=== PATIENT | female | born 1990 | race Caucasian/White ===

== ENCOUNTER 2020-02-22 19:28 | Emergency (ER) | payer BC, SELFPAY ==
[2020-02-22 19:43] VITALS: BP 119/81; PULSE 71; RESP 16; TEMP 36.9; O2SAT 97; BMI 41.5
--- NOTE | 2020-02-22 19:49 | HMH.EDUTC ---
[facility] [place] Clinical Impression: Viral syndrome Pharyngitis Qualifiers: Pharyngitis/tonsillitis etiology: unspecified etiology Qualified Code(s): J02.9 - Acute pharyngitis, unspecified Disposition: Home, Self-Care Condition on Discharge: Good Instructions: DI for Viral Syndrome, Preventing the Spread of Coronavirus Discharge Instructions Additional Instructions: Drink plenty of fluids. Take tylenol or ibuprofen for pain or fever. Take the medications as directed. Follow up with your regular doctor. GO TO THE ER FOR ANY WORSENING SYMPTOMS FOLLOW THE DIRECTIONS ON THE COVID-19 HAND OUT THAT WE GAVE YOU REGARDING SELF-ISOLATION UNTIL YOU KNOW YOUR COVID-19 RESULTS Prescriptions: Ondansetron [Zofran 4mg ODT] 4 mg PO Q8HP PRN #10 tab.rapdis PRN Reason: Nausea Transmission Status: Received by [id number] Azithromycin [Z-Kehinde 250mg Tab*] 250 mg PO UD DOSE PK #6 tab Transmission Status: [facility] Referrals: Warren Cedeño MD [Primary Care Provider] - Forms: Work/School Release Time of Disposition: 20:17 Medical Decision Making - Medical Records Medical records reviewed: No: I reviewed the patient's medical records. - Feliciano Inquiry Pt receiving controlled substance: No Vital Signs: 02/22/20 19:43 02/22/20 20:18 Temperature 98.5 F 98.5 F Temperature Source Oral Pulse Rate 71 Pulse Rate [Right Brachial] 71 Respiratory Rate 16 16 Blood Pressure 119/81 Blood Pressure [Right Arm] 119/81 Blood Pressure Mean [Right Arm] 93 Blood Pressure Source [Right Arm] Automatic Cuff Blood Pressure Position [Right Arm] Sitting 02 Sat by Pulse Oximetry 97 Oxygen Delivery Method Room Air - Lab Data Lab results reviewed: Yes: I reviewed the patient's lab results. Lab Results 02/22/20 19:52: Influenza Type A Ag Negative, Influenza Type B Ag Negative 02/22/20 19:52: Strep Scn Rapid Clinic Negative Orders (Tests/Meds): ED MEDICATIONS Discontinued Medications Generic Name Dose Route Start Last Admin Trade Name Freq PRN Reason Stop Dose Admin Azithromycin 500 mg 02/22/20 20:07 02/22/20 20:09 Zithromax 250mg Tablet PO 02/22/20 20:08 500 mg ONCE ONE Administration Protocol ORDERS Category Date Time Status Covid-19 Nasal PCR Sendout Yassine Stat Lab 02/22/20 19:59 Received Strep Screen Confirmation Stat Micro 02/22/20 19:52 [place]ceived [facility] [place] - General Stated complaint: fever,sore throat,nausa Time Seen by Provider: 02/22/20 19:50 Mode of Arrival: Ambulatory Source of Information: Patient Limitations: No Limitations Description of Symptoms (Recalled from Triage Doc. by RN): PATIENT C/O NAUSEA THAT STARTED LAST NIGHT AND SORE THROAT AND BODY ACHES THAT STARTED THIS MORNING HEENT Symptoms (Recalled from RN notes): Yes Resp Symptoms (Recalled from RN notes): No Skin Symptoms (Recalled from RN notes): No MS Symptoms (Recalled from RN notes): Yes Functional Status (Recalled from RN notes): WNL - History of Present Illness Provider Complaint: She c/o sore throat and feeling bad since yesterday. She denies any documented fever, but she has been chilling. She denies any known exposure to COVID-19. - Related Data Home Medications Medication Instructions Recorded Confirmed Fluoxetine HCl 60 mg PO DAILY 02/22/20 02/22/20 Previous Rx's Medication Instructions Recorded Azithromycin [Z-Kehinde 250mg Tab*] 250 mg PO UD DOSE PK #6 tab 02/22/20 Ondansetron [Zofran 4mg ODT] 4 mg PO Q8HP PRN #10 tab.rapdis 02/22/20 Allergies Allergy/AdvReac Type Severity Reaction Status Date / Time piperacillin [From ZOSYN] Allergy Mild Unverified 06/17/17 14:02 tazobactam [From ZOSYN] Allergy Mild Unverified 06/17/17 14:02 amoxicillin Allergy Verified 02/22/20 19:47 - Worker's Comp Is this a Worker's Comp case?: No [facility] History - Hepatitis A Screen Drug use history?: No High risk sexual behaviors?: No History o
[2020-02-22 19:56] LABS: UTC Influenza A Antigen Negative (Negative); UTC Influenza B Antigen Negative (Negative); UTC Strep Screen (Rapid) Negative (Negative)
[2020-02-22 20:18] VITALS: BP 119/81; PULSE 71; RESP 16; TEMP 36.9; O2SAT 97
[2020-02-24 16:25] LABS: Covid-19 Nasal PCR Sendout Lex NOT DETECTED
== END 2020-02-22 20:20 | disposition home or self-care (01) ==
PROVIDERS: Emergency Provider Nurse Practitioner Family; PCP Internal Medicine Adolescent Medicine
DX: B34.9 Viral infection, unspecified (principal); J02.9 Acute pharyngitis, unspecified; Z20.828 Contact with and (suspected) exposure to other viral communicable diseases; Z88.1 Allergy status to other antibiotic agents
CPT/HCPCS: 87804; 87880; 99202; U0004

== ENCOUNTER 2020-11-16 18:29 | Emergency (ER) | payer BC, SELFPAY ==
[2020-11-16 18:30] VITALS: BP 143/95; PULSE 83; RESP 20; TEMP 36.8; O2SAT 99; BMI 46.2
[2020-11-16 18:43] LABS: Apearance,Urine Cloudy (Clear); Bilirubin,Urine Negative (Negative); Blood, Urine 2+ (Negative); Color,Urine Orange (Yellow); Glucose,Urine (UA) 100 (Negative); Ketones,Urine Negative (Negative); Protein,Urine 1+ (Negative); Specific Gravity, Urine 1.025 (1.005-1.030); Urobilinogen,Urine 1 EU/dl (0.2)
[2020-11-16 18:44] LABS: UTC Leukocyte Esterase,Urine 1+ (Negative); UTC Nitrate,Urine Positive (Negative)
--- NOTE | 2020-11-16 18:54 | HMH.EDUTC ---
[facility] [place] Disposition Clinical Impression: UTI (urinary tract infection) Qualifiers: Urinary tract infection type: site unspecified Hematuria presence: with hematuria Qualified Code(s): N39.0 - Urinary tract infection, site not specified Disposition: Home, Self-Care Condition on Discharge: Good Instructions: Trimethoprim/Sulfamethoxazole (Alternative Therapy), Urinary Tract Infection, DI for Urinary Tract Infection (UTI), Phenazopyridine Additional Instructions: *Increase fluids. Water not Soda or Tea *Start antibiotic immediately and be sure to take as ordered for the FULL length of time although you should start to see improvement over the next 48 hours *Pyridium as needed Remember this medication will turn your urine Izard. This is normal but it will stain what ever it gets on *You should not use Pyridium for more than 48 hours. If so , follow up with your primary physician to review urine culture and ensure that antibiotic is adequate for infection *Be SURE to follow up anytime for new or worsening symptoms with your family doctor. AND in 48 hours for urine culture results with your family doctor, if you do not have a doctor then you may call back to the [facility] for urine culture results and further treatment. We do recommend that you choose and establish care with a Primary Care Physician. AND follow up with them in 10-14 days to repeat UA to ensure infection is resolved and blood no longer present *Be sure to let your PCP know that we sent urine cultures from the [facility] so they can follow up to ensure that you area the on the correct antibiotic Call your doctor office and make appointment for 48 hours (2 days from today) to follow up and get the results of your urine culture and further treatment Prescriptions: Sulfamethoxazole/Trimethoprim [Bactrim DS tablet] 1 each PO BID 7 Days #14 tab Transmission Status: Received by [id number] Phenazopyridine HCl [Pyridium 200mg Tablet] 200 pow PO TID #6 tab Transmission Status: Received by [id number] Referrals: Warren Cedeño MD [Primary Care Provider] - As needed Time of Disposition: 19:06 Medical Decision Making - Feliciano Inquiry Pt receiving controlled substance: No Feliciano was queried for this patient: No Vital Signs: 11/16/20 18:30 11/16/20 19:08 Temperature 98.3 F 98.3 F Temperature Source Oral Pulse Rate 83 Pulse Rate [Right Brachial] 83 Respiratory Rate 20 20 Blood Pressure 143/95 H Blood Pressure [Right Arm] 143/95 H Blood Pressure Mean [Right Arm] 111 Blood Pressure Source [Right Arm] Automatic Cuff Blood Pressure Position [Right Arm] Sitting 02 Sat by Pulse Oximetry 99 Oxygen Delivery Method Room Air - Lab Data Lab results reviewed: Yes: I reviewed the patient's lab results. Lab Results 11/16/20 18:33: Urine Color Izard, Urine Appearance Cloudy, Urine pH 5.0, Ur Specific [place] 1.025, Urine Protein 1+, Urine Glucose (UA) 100, Urine Ketones Negative, Urine Blood 2+, Urine Nitrate Positive A, Urine Bilirubin Negative, Urine Urobilinogen 1, Ur Leukocyte Esterase 1+ A Orders (Tests/Meds): ORDERS Category Date Time Status Urine Culture Stat Micro 11/16/20 18:36 Received [facility] [place] HPI - General Stated complaint: possible uti Time Seen by Provider: 11/16/20 18:54 Mode of Arrival: Ambulatory Source of Information: Patient Limitations: No Limitations Description of Symptoms (Recalled from Triage Doc. by RN): PATIENT C/O ABDOMINAL AND BACK PAIN/PRESSURE AND URINARY URGENCY AND BURNING X 2 DAYS HEENT Symptoms (Recalled from RN notes): No Resp Symptoms (Recalled from RN notes): No Skin Symptoms (Recalled from RN notes): No MS Symptoms (Recalled from RN notes): No Functional Status (Recalled from RN notes): WNL - History of Present Illness Provider Complaint: Patient state that she has been having achy like feeling in her lower back and pressure like feeling and feeling of urgency and frequency States that she feels like she did be
[2020-11-16 19:08] VITALS: BP 143/95; PULSE 83; RESP 20; TEMP 36.8; O2SAT 99
== END 2020-11-16 19:11 | disposition home or self-care (01) ==
PROVIDERS: Emergency Provider Nurse Practitioner; PCP Internal Medicine Adolescent Medicine
DX: N30.00 Acute cystitis without hematuria (principal); A49.8 Other bacterial infections of unspecified site; Z88.0 Allergy status to penicillin
CPT/HCPCS: 81003; 87086; 87088; 87186; 99202; G0463

== ENCOUNTER → 2021-07-20 08:47 | Outpatient (CLI) | payer BC, SELFPAY | PROVIDERS: Visit Provider Nurse Practitioner | DX: Z20.822 Contact with and (suspected) exposure to COVID-19 (principal) | CPT/HCPCS: C9803; U0003; U0005 ==

== ENCOUNTER 2022-01-26 17:41 | Emergency (ER) | payer BC, SELFPAY ==
[2022-01-26 18:12] VITALS: BP 127/82; PULSE 79; RESP 18; TEMP 37.5; O2SAT 99; BMI 32.8
--- NOTE | 2022-01-26 18:13 | HMH.EDUTC ---
[facility] [place] Disposition Clinical Impression: Abdominal wall abscess Disposition: Home, Self-Care Condition on Discharge: Good Instructions: Boil Additional Instructions: Keep the affected area clean and dry. Follow up with your regular doctor. Take the antibiotics as directed and apply the topical antibiotics as directed. Apply warm wet compresses to the affected area three or four times per day. GO TO THE ER FOR ANY WORSENING SYMPTOMS Prescriptions: Mupirocin [Bactroban 2% Ointment 22gm tube] 1 applicatio TP TID 7 Days #1 gm Transmission Status: Pending to [facility] cephALEXin [cephALEXin 500mg capsule] 500 mg PO Q6H 10 Days #40 cap Transmission Status: Pending to [facility] Referrals: Warren Cedeño MD [Primary Care Provider] - Time of Disposition: 19:36 Medical Decision Making - Medical Records Medical records reviewed: No: I reviewed the patient's medical records. - Feliciano Inquiry Pt receiving controlled substance: No Vital Signs: 01/26/22 18:12 Temperature 99.5 F Temperature Source Oral Pulse Rate [Left] 79 Respiratory Rate 18 Blood Pressure [Right Arm] 127/82 Blood Pressure Mean [Right Arm] 97 02 Sat by Pulse Oximetry 99 Orders (Tests/Meds): ED MEDICATIONS Discontinued Medications Generic Name Dose Route Start Last Admin Trade Name Wally PRN Reason Stop Dose Admin Ceftriaxone Sodium 1 gm 01/26/22 19:26 01/26/22 19:32 Ceftriaxone 1gm Vial IM 01/26/22 19:27 1 gm ONCE ONE Administration Lidocaine HCl 0 ml 01/26/22 19:26 01/26/22 19:32 Lidocaine 1% 5ml Pf Vial IM 01/26/22 19:27 2 ml ONCE ONE Administration ORDERS Category Date Time Status Wound Culture and Gram Stain Stat Micro 01/26/22 19:31 Ordered [facility] [place] HPI - General Stated complaint: abscess under Left side Time Seen by Provider: 01/26/22 18:13 - History of Present Illness Provider Complaint: She has had a red swollen area on the skin of her right side of her abdomen for the past 2 weeks. She states that it has drained a small amount of tannish drainage. She denies any fever or chills. - Related Data Home Medications Medication Instructions Recorded Confirmed Vortioxetine Hydrobromide 20 mg PO DAILY 11/16/20 11/16/20 [Trintellix] levonorgestreL [Mirena] 1 each UR ONCE 11/16/20 11/16/20 Previous Rx's Medication Instructions Recorded Phenazopyridine HCl [Pyridium 200 pow PO TID #6 tab 11/16/20 200mg Tablet] Sulfamethoxazole/Trimethoprim 1 each PO BID 7 Days #14 tab 11/16/20 [Bactrim DS tablet] Mupirocin [Bactroban 2% Ointment 1 applicatio TP TID 7 Days #1 gm 01/26/22 22gm tube] cephALEXin [cephALEXin 500mg 500 mg PO Q6H 10 Days #40 cap 01/26/22 capsule] Allergies Allergy/AdvReac Type Severity Reaction Status Date / Time piperacillin [From ZOSYN] Allergy Mild Verified 01/26/22 18:15 tazobactam [From ZOSYN] Allergy Mild Verified 01/26/22 18:15 amoxicillin Allergy Verified 01/26/22 18:15 Penicillins Allergy Verified 01/26/22 18:15 [facility] History - Hepatitis A Screen Attestation statement:: This patient has been screened for Hepatitis A risk factors. I have reviewed the patient's past medical history: Yes - Social History Alcohol Intake: never Occupational Status: other ROS Obtained: Yes All systems reviewed & no additional complaints - Constitutional Constitutional: Denies chills, Denies fever(s) - Eyes Eyes: Denies eye discharge - ENT Ears, Nose, Mouth, and Throat: Denies dizziness, Denies otalgia, Denies sore throat - Cardiovascular Cardiovascular: Denies chest pain - Respiratory Respiratory: Denies chest congestion, Denies cough - Musculoskeletal Musculoskeletal: Denies joint pain, Denies back pain - Integumentary/Breasts Skin/Breast: Reports redness, Denies rash, Reports wounds Physical Exam - General General appearance: alert, in no apparent distress - Head Head exam: a
[2022-01-26 19:32] VITALS: BP 127/82; PULSE 79; RESP 18; TEMP 37.5
== END 2022-01-26 19:41 | disposition home or self-care (01) ==
PROVIDERS: Emergency Provider Nurse Practitioner Family; PCP Internal Medicine Adolescent Medicine
DX: L02.211 Cutaneous abscess of abdominal wall (principal)
CPT/HCPCS: 10060; 87070; 87205; 96372; 99213; G0463; J0696

== ENCOUNTER 2022-04-26 14:54 | Emergency (ER) | payer BC, SELFPAY ==
--- NOTE | 2022-04-26 15:06 | CT_ITS ---
PROCEDURE INFORMATION: Exam: CTA Chest With Contrast Exam date and time: 04/26/2022 4:07 PM Age: 31 years old Clinical indication: Shortness of breath; Additional info: SOA, covid +, elevated dimer TECHNIQUE: Imaging protocol: Computed tomographic angiography of the chest with contrast. 3D rendering (Not supervised by radiologist): MIP and/or 3D reconstructed images were created by the technologist. Radiation optimization: All CT scans at this facility use at least one of these dose optimization techniques: automated exposure control; mA and/or kV adjustment per patient size (includes targeted exams where dose is matched to clinical indication); or iterative reconstruction. Contrast material: ISOVUE 370; Contrast volume: 70 ml; Contrast route: INTRAVENOUS (IV); COMPARISON: No relevant prior studies available. FINDINGS: Pulmonary arteries: No pulmonary embolus. No dissection or aneurysm in the chest. Aorta: Unremarkable. No aortic aneurysm. No aortic dissection. Lungs: The lungs are clear. Pleural spaces: Unremarkable. No pneumothorax. No pleural effusion. Heart: No significant coronary artery calcifications. Lymph nodes: Unremarkable. No enlarged lymph nodes. Stomach and bowel: Gastric bypass. Bones/joints: Unremarkable. No acute fracture. Soft tissues: Unremarkable. IMPRESSION: 1. No pulmonary embolus. No dissection or aneurysm in the chest. 2. The lungs are clear.
[2022-04-26 15:21] VITALS: BP 148/114; PULSE 80; RESP 17; TEMP 36.9; O2SAT 98; BMI 30.4
[2022-04-26 15:35] LABS: Basophils # 0.1 K/mm3 (0-0.2); Basophils % 1.2 % (0.1-2.0); Eosinophils # 0.2 K/mm3 (0.0-0.4); Eosinophils % 2.4 % (0.1-12.0); Hematocrit 47.6 % (37.0-47.0); Hemoglobin 15.6 g/dL (12.2-16.2); Lymphocytes # 2.8 K/mm3 (0.7-4.5); Lymphocytes % 39.5 % (10-50); Mean Corpuscular HGB Conc 32.7 g/dL (31.8-35.4); Mean Corpuscular Hemoglobin 31.7 pg (27.0-31.2); Mean Platelet Volume 8.6 fl (7.4-10.4); Monocytes # 0.4 K/mm3 (0.1-1.0); Monocytes % 5.7 % (1.7-9.3); Neutrophils # 3.6 K/mm3 (1.8-7.8); Platelet Count 227 K/mm3 (142-424); Red Blood Count 4.91 M/mm3 (4.20-5.40); Red Cell Distribution Width 14.2 % (11.5-17.5)
[2022-04-26 15:45] LABS: Chloride 101 mmol/L (98-107); Potassium 3.9 mmoL/L (3.5-5.1); Sodium 140 mmol/L (136-145)
[2022-04-26 15:48] LABS: Alanine Aminotransferase 57 U/L (12-78); Albumin Level 4.6 g/dl (3.5-5.0); Albumin/Globulin Ratio 1.8 (1.1-1.8); Alkaline Phosphatase 98 U/L (38-126); Anion Gap 13.9 mEq/L (5-15); Aspartate Amino Transferase 95 U/L (14-36); Bilirubin,Total 0.8 mg/dl (0.2-1.3); Blood Urea Nitrogen 18 mg/dl (7-17); Calcium 9.4 mg/dl (8.4-10.2); Carbon Dioxide 29 mmol/L (22.0-30.0); Creatinine Clearance Estimated 187 mL/min (50-200); Estimated Glomerular Filt Rate 116 ml/min (>60); GFR (African American) 140 ML/MIN (>60); Globulin 2.6 g/dL (1.3-3.2); Glucose 94 mg/dl (74-100); Magnesium 1.9 mg/dl (1.6-2.3); Total Protein,Serum 7.2 g/dl (6.3-8.2)
[2022-04-26 15:50] LABS: HCG Qualitative, Serum Negative (Negative)
[2022-04-26 16:00] VITALS: BP 133/105; PULSE 74; RESP 20; O2SAT 99
--- NOTE | 2022-04-26 16:55 | HMH.EDGENADL ---
Discharge Plan Disposition Patient Disposition: Home, Self-Care Prescriptions Prescriptions: New chlordiazepoxide HCl 25 mg capsule See Rx Instructions .ROUTE .COMPLEX Qty: 13 0RF Rx Instructions: Please take 50 mg every 8 hours on day one, 25 mg every 6 hours on day two, 25 mg every 12 hours on day three, 25 mg at night on day four. No Action levonorgestrel 1 EACH intrauterine device 1 each UR ONCE vortioxetine 20 MG tablet 20 mg PO DAILY phenazopyridine 200 MG tablet 200 pow PO TID Qty: 6 0RF sulfamethoxazole-trimethoprim 1 EACH tablet 1 each PO BID 7 Days Qty: 14 0RF cephalexin 500 MG capsule 500 mg PO Q6H 10 Days Qty: 40 0RF mupirocin 22 GM ointment 1 applicatio TP TID 7 Days Qty: 1 0RF Referrals Follow up/Referrals: Shaw Vang MD [Primary Care Provider] - See instructions Activity Restrictions/Add. Instructions Additional Instructions/Restrictions: At this time was felt you are safe to be discharged home. If new or worsening symptoms please do not hesitate to return to the emergency department. Please take your medication as prescribed. Please do not combine your medication with alcohol. Clinical Impressions Clinical Impression: COVID-19, Alcohol withdrawal Discharge ED Provider: Crescencio Yeung General Adult HPI General Chief complaint: Shortness of Breath/Dyspnea Stated complaint: SOA Time Seen by Provider: 04/26/22 15:30 Mode of Arrival: Ambulatory Source of Information: Patient Limitations: No Limitations Description of Symptoms (Recalled from ER Triage Doc. by RN): PT STATES THAT SHE TESTED + FOR COVID ON 04/19. STATES THAT SHE HAD SOA THIS AM. PCP ADVISED HER TO COME TO ED TO R/O PE. PT ALSO ADVISES THAT SHE DRINKS ETOH DAILY AND HAS NOT HAD ANY, SO SHE IS CONCERNED ABOUT THE POSSIBILITY OF WITHDRAWL. History of Present Illness HPI narrative: Patient is a 31-year-old female with past medical history of EtOH abuse who presents emergency department for evaluation of shortness of breath in the setting of positive D-dimer. Patient tested positive for COVID on . She had progressive shortness of breath causing her to present to outside clinic where elevated D-dimer was found and she was sent here for continued evaluation. Patient states that she has shortness of breath, moderate in intensity. No chest pain. No other acute complaints at this time. Related Data Home Medications Medication Instructions Recorded Confirmed levonorgestrel 20 mcg/24 hours (8 1 each UR ONCE control 11/16/20 11/16/20 yrs) 52 mg intrauterine device vortioxetine 20 mg tablet 20 mg PO DAILY Depression 11/16/20 11/16/20 Previous Rx's Medication Instructions Recorded phenazopyridine 200 mg tablet 200 pow PO TID #6 tabs 11/16/20 sulfamethoxazole 800 1 each PO BID 7 days #14 tabs 11/16/20 mg-trimethoprim 160 mg tablet cephalexin 500 mg capsule 500 mg PO Q6H 10 days #40 caps 01/26/22 mupirocin 2 % topical ointment 1 applicatio topical TID 7 days #1 01/26/22 g chlordiazepoxide HCl 25 mg capsule See Rx Instructions .Route 04/26/22 .COMPLEX #13 caps Allergies Allergy/AdvReac Type Severity Reaction Status Date / Time piperacillin [From ZOSYN] Allergy Mild Verified 01/26/22 18:15 tazobactam [From ZOSYN] Allergy Mild Verified 01/26/22 18:15 amoxicillin Allergy Verified 01/26/22 18:15 Penicillins Allergy Verified 01/26/22 18:15 PFSH PFSH Social History Smoking Status: Never smoker alcohol intake: never current occupational status: other Travel in the last 8 weeks: None ROS Obtained: Yes Systems reviewed as appropriate & no additional complaints except as documented Physical Exam General General appearance: alert and in no apparent distress Head Head exam: atraumatic and normocephalic Eye Eye exam: Present PERRL and EOMI ENT ENT exam: Present mucous membranes moist Neck Neck exam: Present normal inspection Chest Chest in
[2022-04-26 17:33] LABS: Troponin I < 0.01 ng/ml (0.00-0.034)
--- NOTE | 2022-04-26 17:55 | ECG_ITS ---
APPROVED REPORT Exam: Resting ECG HR:73 bpm ECG Measurements Heart Rate 73 AXES [place] 133 P 35 QRSd 93 QRS 33 QT 399 T 35 QTc 425 Conclusion SINUS RHYTHM NORMAL ECG UNCONFIRMED REPORT Electronically signed by : Shaw Vang MD 04/28/2022 21:21:04
[2022-04-26 18:20] VITALS: BP 156/100; PULSE 83; RESP 20; TEMP 36.8; O2SAT 99
== END 2022-04-26 18:20 | disposition home or self-care (01) ==
PROVIDERS: Emergency Provider Emergency Medicine; PCP Internal Medicine Adolescent Medicine
DX: U07.1 COVID-19 (principal); F10.939 Alcohol use, unspecified with withdrawal, unspecified; Z88.0 Allergy status to penicillin; Z88.1 Allergy status to other antibiotic agents; Z88.8 Allergy status to other drugs, medicaments and biological substances
CPT/HCPCS: 71275; 80053; 83735; 84484; 84703; 85025; 93005; 96365; 99284; Q9967

== ENCOUNTER 2025-04-02 14:32 | Emergency (ER) | payer BC, SELFPAY ==
[2025-04-02 14:43] VITALS: BP 145/103; PULSE 86; RESP 16; TEMP 36.8; O2SAT 99; BMI 25.8
--- OUTSIDE RECORDS SUMMARY | 2025-04-02 14:47 | XMS_ITS | Clinical Summary ---
Author Organization [facility] Address [address] [place] [address] Care Team Providers Care Wholesale Representative Name Role Phone Shaw Vang MD Primary Care Provider [phone] Allergies Active Allergy Reactions Criticality Noted Date Comments Penicillins Other (See Comments) 03/17/2022 Known reaction, childhood allergy Piperacillin Sod-Tazobactam So Angioedema 03/17/2022 Medications predniSONE (DELTASONE) 10 MG (21) dose packIndications :Acute midline low back pain without sciatica Use as directed on package 21 tablet 09/03/2023 Active Immunizations Immunization Administration Dates Next Due Fluzone (or Fluarix & Flulaval for VFC) >6mos Social History Tobacco Use Types Packs/Day Years Used Date Smoking Tobacco: Never Assessed Abuse Screen Answer Date Recorded Unsafe at Home or Work/School Not on file Feels Threatened by Someone? Not on file Does Anyone Keep You from Co ntacting Others or Doint Things Outside the Home? Not on file 04/11/2023 Physical Sign of Abuse Present Not on file 1 Housing Stability Answer Date Recorded Current Living Arrangements Not on file 03/30 Potentially Unsafe Housing Conditions Not on cecilia e 04/11/2023 Family and Community Support Answer Too e Recorded Help with Day-to-Day Activities Not on file 04/11/2023 Lonely or Isolated Not on file 04/11/2023 Employment Answer Date Recorded Do you want help finding or keeping work or a herminia b? Not on file 04/11/2023 Disabilities Answer Date Recorded Concentrating, Remembering, or Making Decisions Difficulty Not on file 04/11/2023 Doing Errands Independently Difficulty Not on fi le 04/11/2023 Education Answer Date Recorded Help with school or training? Not on file Preferred Language Not on file 04/11/2023 Comments No Sex and Gender Information Value Date Recorded Sex Assigned at Not on file Legal Sex Female 8:14 AM EDT Gender Identity Not on file Sexual Orientation Not on file Last Filed Vital Signs Vital Sign Reading Time Taken Comments Blood Pressure 132/94 03/17/2022 9:30 AM EDT Pulse 84 03/17/2022 9:30 AM EDT Temperature 36.8 C (98.2 F) 03/17/2022 8:15 AM EDT Respiratory Rate 16 03/17/2022 9:30 AM EDT Oxygen Saturation 97% 03/17/2022 9:30 AM EDT Inhaled Oxygen Concentration - - Weight 89.4 kg (197 lb) 03/17/2022 8:15 AM EDT Height 170.2 cm (5' 7 ) 03/17/2022 8:15 AM EDT Body Mass Index 30.85 03/17/2022 8:15 AM EDT Plan of Treatment Health Maintenance Due Date Last Done Comments Annual Gynecologic Pelvic and Breast Exam 1989 TDAP/TD VACCINES (1 - Tdap) 2008 ANNUAL PHYSICAL 09/03/2023 HEPATITIS C SCREENING 09/03/2023 INFLUENZA VACCINE 01/28/2025 05/02/2023, , 03/22/2020, Additional history exists Pneumococcal Vaccine 0-49 Aged Out No longer eligible based on patient's age to complete this topic Insurance [employer] Care Teams Wholesale Representative Relationship Specialty Start Date End Date Shaw Vang MD [address] [facility] [address] [facility] [place] [id number] PCP - General Adolescent Medicine 03/17/22
--- OUTSIDE RECORDS SUMMARY | 2025-04-02 14:47 | XMS_ITS | Encounter Summary ---
Author Organization [employer] ([place], [place], [place], [place]) Address [address] [place] [address] Care Team Providers Care Log Deck Tender Name Role Phone Unavailable Primary Care Provider Unavailabl e Encounter Details Date Type Department Care Team (Late st Contact Info) Description 07/07/2020 Transcribed Document [facility] [place] [facility] [place] [address] ProviderJonatan MD [address] [phone] Social History Tobacco Use Types Packs/Day Years Used Date Smoking Tobacco: Never Assessed Comments Unknown Sex and Gender Information Value Date Recorded Sex Assigned at Female 12/25/2021 6:38 PM CDT Legal Sex Female 6:38 PM CDT Gender Identity Female 12/25/2021 6:38 PM CDT Sexual Orientation Not on file documented as of this encounter Miscellaneous Notes * Cerner Conversion Note - Historical ProviderMD - 07/07/2020 11:46 AM RANCH COOK Pre Procedure Adult Entered On: 07/07/2020 11:51 EST Performed On: 07/07/2020 11:46 EST by DENICE Candelario RN Height and Weight, Clinical Dosing Height Source : Stated Height Entry Format : [place] Height, Feet : 0 ft(Converted to: 0 cm, 0 Inch) Height, Inches : 67 Inch(Converted to: 5 ft 7 Inch, 170.18 cm) Clinical Height : 170.18 cm Weight Source : Standing scale Weight Entry Format : [place] Clinical Dosing Weight : 132.64 kg Weight, Pounds : 291.8 lb Body Surface Area (BSA) : 2.38 m2 Body Mass Index : 45.8 kg/m2 (>HHI) [place] Body Weight : 61 kg DENICE Candelario RN - 07/07/2020 11:46 EST Health Histories Smoking Status : Never (less than 100 in lifetime; none in last 30 days) Smokeless Tobacco Status : Never DENICE Candelario RN - 07/07/2020 11:46 EST Social History (As Of: 07/07/2020 11:51:01 EST) Tobacco: Never (less than 100 in lifetime) Smoking Status. Never Smokeless Tobacco Status. (Last Updated: 07/07/2020 11:46:24 EST by DENICE Candelario RN) Alcohol: Alcohol Use History Yes. Alcohol Use Frequency Monthly. (Last Updated: 07/07/2020 11:46:31 EST by DENICE Candelario RN) Substance Abuse: Drug Use Hx: No. Use in Last 12 Months: No. (Last Updated: 07/07/2020 11:46:35 EST by DENICE Candelario RN) Nutrition/Health: Caffeine intake amount: none. (Last Updated: 07/07/2020 11:46:40 EST by DENICE Candelario RN) Infectious Disease History Has the patient ever been tested for COVID-19? : Yes, Patient stated results Negative Where are the test results? : In EMR Results Date of COVID-19 test known? : Yes Date of COVID-19 Test : 07/04/2020 EST Does patient have symptoms of COVID-19? : No COVID19 Screening : Yes Experiencing Infectious Disease Symptoms : No symptoms Physical contact outside [place] in the last 30 days : No Infectious Disease History : Chicken pox/Shingles, Influenza Tuberculosis Symptoms : None DENICE Candelario RN - 07/07/2020 11:46 EST COVID19 PreProcedure Screening Is this an Emergent or Add on Procedure? : No Date PreProcedure COVID-19 test known? : Yes Date of PreProcedure COVID-19 : 07/04/2020 EST Has patient been isolated since the test : Yes Exposed to COVID19 symptoms since test? : No DENICE Candelario RN - 07/07/2020 11:46 EST Anesthesia/Transfusion History Family History of Anesthesia Reaction : No prior transfusion(s) Transfusion History : Prior anesthesia reaction Type of Anesthesia Reaction : Excessive somnolence Family History of Anesthesia Reaction : None DENICE Candelario RN - 07/07/2020 11:46 EST Functional Assessment Living Situation : Home Patient Lives With : Dependent Child/Children, Spouse Current Home Treatments : None DENICE Candelario RN - 07/07/2020 11:46 EST [place] Suicide Severity Rating Scale (C-SSRS) CSSRS Past Month Wish to be : No CSSRS Past Month Suicidal Thoughts : No CSSRS Lifetime Suicide Behavior : No Suicide Severity Rating Score : 0 Suicide Severity Rating : No Additional Care Required at this time DENICE Candelario RN - 07/07/2020 11:46 EST Psychosocial History Currently in Unsafe Situation : No DENICE Candelario RN - 07/07/2020 11:46 EST Advance Directive Patient has Advance Directive *Q : No, patient refuses Advance Directive information DENICE Candelario RN - 07/07/2020 11:46 EST Teaching/Learning Assessment Barriers To Learning : None evident Individuals Taught : Patient Readiness to Learn : Cooperative Highest Level of Education : University degree(s) Baseline Knowledge of Topic : Good Readiness to Learn : Explanation DENICE Candelario RN - 07/07/2020 11:46 EST General Info Want Family/Rep/Phys Notified of Admit : Yes Name/Contact Info Fam/Rep Notified Adm : na Name/Contact Info Physician Notified Adm : Willard Cedeño Emergency Contact #1 : Willard Dejesus Emergency Contact #1 Emergency Contact #1 Relationship : spouse Emergency Contact #2 : none Emergency Contact #2 Phone Number : none Emergency Contact #2 Relationship : none Information Obtained From : Patient Primary Language : Telugu Communication Barrier : None Dirt Shoveler Needed : No Objects to Sharing Info w Family : No DENICE Candelario RN - 07/07/2020 11:46 EST Sleep Apnea Risk Assmt Hx of Obstructive Sleep Apnea Diagnosis : No Snore Loudly : No Tired, Fatigued, or Sleepy During Day : No Observed Stopping Breathing During Sleep : No Have/Are Being Treated for Hypertension : No BMI Greater Than 35 kg/m2 : Yes Age over 50 Years Old : No Neck Circumference Greater Than 40 cm : Yes Gender Male : No STOP-BANG Sleep Apnea Risk Level Score : 2 DENICE Candelario RN - 07/07/2020 11:46 EST Markel Scale Markel Sensory Perception : No impairment Markel Moisture : Rarely moist Markel Activity : Walks frequently Markel Mobility : No limitation Markel Nutrition : Adequate Markel Friction and Shear : No apparent problem Markel Score : 22 DENICE Candelario RN - 07/07/2020 11:46 EST Fall Risk Scales ABCs Fall Injury Risk Identification : None JOSE Hx Falls Immediate/Within 3 Months : No Jose Secondary Diagnosis : No JOSE Use of Ambulatory Aid : None JOSE IV Therapy or IV Access : Yes Jose Gait/Transferring : Normal, bedrest, immobile Jose Mental Status : Oriented to own ability Jose Fall Risk Score : 20 JOSE Fall Scale Risk Level : 0-24 Low Risk [place] Fall Interventions : Adequate lighting, Bed in low position, Call device within reach, Fall prevention handout/education per facility policy, Frequent orientation to call device, Frequent orientation to surroundings, Hourly comfort/safety rounds, Non-slip footwear, Personal items within reach, Reinforced to call for assistance before getting out of bed, Room free of clutter/spills, Upper side-rails up, Wheels locked, Wires/Cords secured DENICE Candelario RN - 07/07/2020 11:46 EST Valuables and Belongings Valuables and Belongings : Clothing Clothing : Common streetwear Clothing Disposition : Bedside DENICE Candelario RN - 07/07/2020 11:46 EST Electronically signed by Jose Cruz Price Conversion Behavioral Medical Director Cerner at 10/15/2022 12:30 PM CDT documented in this encounter Plan of Treatment Not on file documented as of this encounter Visit Diagnoses Not on filedocumented in this encounter
--- OUTSIDE RECORDS SUMMARY | 2025-04-02 14:47 | XMS_ITS | Encounter Summary ---
Author Organization [employer] ([place], [place], [place], [place]) Address [address] [place] [address] Care Team Providers Care Geographic Information Systems Manager Name Role Phone Unavailable Primary Care Provider Unavailabl e Encounter Details Date Type Department Care Team (Late st Contact Info) Description 12/29/2020 Transcribed Document [facility] [place] [facility] [place] [address] ProviderJonatan MD [facility] [place] [phone] Social History Tobacco Use Types Packs/Day Years Used Date Smoking Tobacco: Never Assessed Comments Unknown Sex and Gender Information Value Date Recorded Sex Assigned at Female 12/25/2021 6:38 PM CDT Legal Sex Female 6:38 PM CDT Gender Identity Female 12/25/2021 6:38 PM CDT Sexual Orientation Not on file documented as of this encounter Miscellaneous Notes * [employer]ner Conversion Note - Historical ProviderMD - 12/29/2020 7:51 AM CDT Patient: KARI GARCIA Age: 30 Years Sex: Female : 1990 Bariatric Surgery Progress Note Subjective Patient feeling well, with mild wound pain Tolerating bariatric stage 1 diet. No nausea/vomiting. Ambulating Objective 12/29/2020 06:00 Systolic Blood Pressure 121 12/29/2020 06:00 Diastolic Blood Pressure 77 12/29/2020 06:00 Heart Rate Monitored 68 12/28/2020 22:00 Respiratory Rate 16 12/29/2020 06:00 Temperature, Fahrenheit 98.3 12/29/2020 06:00 Oxygen Saturation 97 NAD Lungs CTA BL Heart RRR Abd Soft, ND, appropriate wound TTP. Dressings clean/dry Neuro AAOx3 Labs DEC 29 03:15 140 108 10 / 74 4.2 26 L 0.53 \ DEC 29 03:15 \ 13.3 / H 10.9 208 / 40.9 \ Assessment and Plan 30 yo patient POD 1 s/p Laparoscopic RnY bypass Doing well and ready for discharge today if continue to tolerate fluids. Follow as out patient in the Bariatric clinic. Electronically signed by Jose Cruz Price Conversion Crusher Loader Equipment Operator Cerner at 10/15/2022 12:34 PM CDT documented in this encounter Plan of Treatment Not on file documented as of this encounter Visit Diagnoses Not on filedocumented in this encounter
--- OUTSIDE RECORDS SUMMARY | 2025-04-02 14:47 | XMS_ITS | Encounter Summary ---
Author Organization [facility] ([place], [place], [place], [place]) Address [address] [place] [address] Care Team Providers Care Graduate Advisor Name Role Phone Unavailable Primary Care Provider Unavailabl e Encounter Details Date Type Department Care Team (Late st Contact Info) Description 12/28/2020 Transcribed Document [facility] [place] [facility] [place] [address] ProviderJonatan MD [facility] [place] [address] Social History Tobacco Use Types Packs/Day Years Used Date Smoking Tobacco: Never Assessed Comments Unknown Sex and Gender Information Value Date Recorded Sex Assigned at Female 12/25/2021 6:38 PM CDT Legal Sex Female 6:38 PM CDT Gender Identity Female 12/25/2021 6:38 PM CDT Sexual Orientation Not on file documented as of this encounter Miscellaneous Notes * Cerner Conversion Note - Jonatan ProviderMD - 12/28/2020 7:56 AM CDT E Main OR IntraOp Summary Primary Physician: EMIL MENARD MD Finalized Date/Time: 12/28/20 09:57:20 Pt. Name: KARI GARCIAN /Sex: 1990 Female Med Rec #: [id number] Physician: EMIL MENARD MD Financial #: [id number] Pt. Type: I Room/Bed: [facility] Admit/Disch: 12/28/20 05:12:00 - Institution: [facility] – [place] [place] IntraOp Case Attendance Entry 1 Entry 2 Entry 3 Case Attendee EMIL MENARD MD MATHIS, RACHEL, MD MORROW, ERIC, PA-C Role Performed Surgeon/Proceduralist, Surgeon/Proceduralist, Physician billing and accounting staff assistant First Second Time In 12/28/20 07:35:00 12/28/20 08:19:00 12/28/20 07:35:00 Time Out 12/28/20 09:57:00 12/28/20 09:57:00 12/28/20 08:20:00 Procedure Gastric Bypass Gastric Bypass Gastric Bypass Gabriel-en-y Laparoscopic Gabriel-en-y Laparoscopic Gabriel-en-y Laparoscopic Other Attendee Superficial Wound Closed By: Last Modified By: BILL LOPEZ, BILL RUSSELL, BILL RUSSELL, SY 12/28/20 09:57:17 12/28/20 09:57:17 12/28/20 09:57:17 Entry 4 Entry 5 Entry 6 Case Attendee NORMAN العلي NA WESSEL, JULIANA, Judi Molina, Hay Farmer Role Performed CHILD CARE WORKER/Nurse Strategic Planning Analyst Physician Gynecologist, First Scrub, First Time In 12/28/20 07:35:00 12/28/20 07:35:00 12/28/20 07:35:00 Time Out 12/28/20 09:57:00 12/28/20 09:57:00 12/28/20 09:57:00 Procedure Gastric Bypass Gastric Bypass Gastric Bypass Gabriel-en-y Laparoscopic Gabriel-en-y Laparoscopic Gabriel-en-y Laparoscopic Other Attendee Superficial Wound Closed By: Last Modified By: BILL LOPEZ RN WESSEL, JULIANA, BILL RUSSELL, SY 12/28/20 09:57:17 12/28/20 09:57:17 12/28/20 09:57:17 Entry 7 Entry 8 Entry 9 Case Attendee TRACEY ANAND, Deric, Marianne Joya Josh, REP - SSI Hay Farmer RN-PATIENT CARE BEDSIDE NON-EXEMPT Role Performed Scrub, Second Physician Gynecologist, Second Cardiovascular Operating Room Nurse, Ancillary Time In 12/28/20 07:35:00 12/28/20 07:35:00 12/28/20 07:35:00 Time Out 12/28/20 09:57:00 12/28/20 09:57:00 12/28/20 09:57:00 Procedure Gastric Bypass Gastric Bypass Gastric Bypass Gabriel-en-y Laparoscopic Gabriel-en-y Laparoscopic Gabriel-en-y Laparoscopic Other Attendee Superficial Wound Closed By: Last Modified By: BILL LOPEZ, BILL RUSSELL RN WESSEL, JULIANA, RN 12/28/20 09:57:17 12/28/20 09:57:17 12/28/20 09:57:17 [facility] IntraOp Case Attendance Audit 12/28/20 09:57:17 Hydroelectric Station Operator Chief: RUKHSANA Modifier: [email or web address] 1 <+> Time Out 1 <*> Procedure Gastric Bypass Gabriel-en-y Laparoscopic 2 <+> Time Out 2 <*> Procedure Gastric Bypass Gabriel-en-y Laparoscopic 3 <*> Procedure Gastric Bypass Gabriel-en-y Laparoscopic 4 <+> Time Out 4 <*> Procedure Gastric Bypass Gabriel-en-y Laparoscopic 5 <+> Time Out 5 <*> Procedure Gastric Bypass Gabriel-en-y Laparoscopic 6 <+> Time Out 6 <*> Procedure Gastric Bypass Gabriel-en-y Laparoscopic 7 <+> Time Out 7 <*> Procedure Gastric Bypass Gabriel-en-y Laparoscopic 8 <+> Time Out 8 <*> Procedure Gastric Bypass Gabriel-en-y Laparoscopic 9 <+> Time Out 9 <*> Procedure Gastric Bypass Gabriel-en-y Laparoscopic 12/28/20 08:24:38 Hydroelectric Station Operator Chief: RUKHSANA Modifier: [email or web address] 2 <*> Time In 12/28/20 07:32:00 2 <*> Procedure Gastric Bypass Gabriel-en-y Laparoscopic 3 <+> Time Out 3 <*> Procedure Gastric Bypass Gabriel-en-y Laparoscopic 12/28/20 08:18:03 Hydroelectric Station Operator Chief: [email or web address] Modifier: [email or web address] 1 <*> Procedure Gastric Bypass Gabriel-en-y Laparoscopic 2 <+> Time In 2 <*> Procedure Gastric Bypass Gabriel-en-y Laparoscopic 3 <+> Time In 3 <*> Procedure Gastric Bypass Gabriel-en-y Laparoscopic 4 <+> Time In 4 <*> Procedure Gastric Bypass Gabriel-en-y Laparoscopic 5 <+> Time In 5 <*> Procedure Gastric Bypass Gabriel-en-y Laparoscopic 6 <+> Time In 6 <*> Procedure Gastric Bypass Gabriel-en-y Laparoscopic 7 <+> Time In 7 <*> Procedure Gastric Bypass Gabriel-en-y Laparoscopic 8 <+> Time In 8 <*> Procedure Gastric Bypass Gabriel-en-y Laparoscopic 9 <+> Time In 9 <*> Procedure Gastric Bypass Gabriel-en-y Laparoscopic [facility] IntraOp Case Times Entry 1 Patient In Room Time 12/28/20 07:35:00 Out Room Time 12/28/20 09:57:00 Anesthesia Start Time 12/28/20 07:35:00 Stop Time 12/28/20 09:57:00 Anesthesia Ready 12/28/20 07:35:00 Surgery / Procedure Times Start Time 12/28/20 07:56:00 Stop Time 12/28/20 09:54:00 Last Modified By: BILL LOPEZ RN 12/28/20 09:57:16 [facility] IntraOp Case Times Audit 12/28/20 09:57:16 Hydroelectric Station Operator Chief: RUKHSANA Modifier: [email or web address] <+> 1 Out Room Time <+> 1 Stop Time 12/28/20 09:56:30 Hydroelectric Station Operator Chief: [email or web address] Modifier: [email or web address] <+> 1 Stop Time [facility] IntraOp Cautery Entry 1 ESU Identification Cautery Type Monopolar ESU ID Number [id number] ID Type Hospital Number Cautery Settings Cut Setting 0 Coag Setting 30 ESU Grounding Pad Ground Pad Type Adult Grounding Pad Site Left thigh Grounding Pad BILL LOPEZ RN Applied By Grounding Pad Site Warm, dry and intact Skin Condition Before Cautery Grounding Pad Site Unchanged Skin Condition After Cautery Last Modified By: BILL LOPEZ RN 12/28/20 08:02:32 [facility] IntraOp Cautery Audit 12/28/20 08:02:32 Hydroelectric Station Operator Chief: [email or web address] Modifier: [email or web address] <+> 1 Grounding Pad Applied By [facility] IntraOp Communication Entry 1 Communication To Family/Significant other Comment start Communication By BILL LOPEZ RN Date and Time 12/28/20 08:03:00 Last Modified By: BILL LOPEZ RN 12/28/20 08:03:13 [facility] IntraOp Counts Verification Entry 1 Procedure Gastric Bypass Gabriel-en-y Laparoscopic Count Info Count Type Sponge, Sharps, Instrument, Miscellaneous Counts Verification Baseline/pre-procedure Sequence Count Results Correct, surgeon notified Counts Performed By Count Performed By TRACEY NAAND, (Scrub) Hay Farmer Count Performed By BILL LOPEZ RN (RN) Last Modified By: BILL LOPEZ RN 12/28/20 08:03:58 [facility] IntraOp Counts Final Entry 1 Procedure Gastric Bypass Gabriel-en-y Laparoscopic Final Count Info Count Type Sponge, Sharps, Miscellaneous Counts Verification Skin Closure/end of Sequence procedure Count Results Correct, surgeon notified Counts Performed By Count Performed By TRACEY ANAND, (Scrub) Hay Farmer Count Performed By BILL LOPEZ RN (RN) Last Modified By: BILL LOPEZ RN 12/28/20 09:57:01 [facility] IntraOp Counts Final Audit 12/28/20 09:57:01 Hydroelectric Station Operator Chief: [email or web address] Modifier: [email or web address] 1 <*> Procedure Gastric Bypass Gabriel-en-y Laparoscopic 1 <+> Counts Verification Sequence [facility] IntraOp Departure from OR Entry 1 Integumentary Assessment Integumentary WDL Assessment WDL Transfer/Handoff Transfer to PACU Phase I Handoff Method Bedside/Face to face Post-op Transport Bed (including Via specialty) Patient Transport NORMAN العلي NA, Accompanied by BILL LOPEZ RN Last Modified By: BILL LOPEZ RN 12/28/20 08:04:23 [facility] IntraOp Dressing and Packing Entry 1 Type Dressing Location ABDOMEN Wound Dressing Item 2x2's Applied By TRACEY ANAND, Hay Farmer Other Comments 2 X2 COVADERMS APPLIED TO TROCAR SITES Last Modified By: BILL LOPEZ RN 12/28/20 09:46:20 [facility] IntraOp Dressing and Packing Audit 12/28/20 09:46:20 Hydroelectric Station Operator Chief: [email or web address] Modifier: [email or web address] 1 <*> Applied By Judi Billy, Hay Farmer [facility] IntraOp Fire Risk Assessment Entry 1 Fire Info Surgical Site or 0- No Incision Above the Xyphoid Open O2 Source 0- No (Mask or Cannula) Available Ignition 1- Yes (ESU, Laser, Light Source) Fire Risk 1 Assessment Score Fire Score Fire Risk Yes Assessment Complete Fire Risk BILL LOPEZ RN Assessment Verified By Fire Risk 12/28/20 07:30:00 Assessment Verified Date/Time Fire Risk Standard Fire Yes Safety Precautions Followed Last Modified By: BILL LOPEZ RN 12/28/20 08:04:54 [facility] IntraOp General Case Personnel Clerks Supervisor 1 Case Information OR OR 03 SJE Case Level 1 Room Verified Yes Wound Class I - Clean Specialty General Anesthesia Type General ASA Class 3 Diagnosis Preop Diagnosis morbid obesity Postop Same As Preop Yes Postop Diagnosis morbid obesity Last Modified By: BILL LOPEZ RN 12/28/20 08:05:09 [facility] IntraOp Implant Log Entry 1 Entry 2 Entry 3 Type Implant (Synthetic) Implant (Synthetic) Implant (Synthetic) Implant Log Implant Type Other Other Other Tissue Implant Type Implant REINF STPL CIRC SEAMGRD REINFORCE STPL SEAMGRD REINFORCE STPL SEAMGRD Identification [id number] [id number] Description Implant Quantity 1 1 1 Implant Site OPSITE OPSITE OPSITE Implant Identification Model Number Implant Identification Serial Number Implant [id number] Identification Lot Number Implant [employer]:Med Prdt W[employer]:Med Prdt W[employer]:Med Prdt Identification Multi Care Technician Name: Implant [id number] Identification Catalog Number Implant Size Implant Has an Yes Yes Yes Expiration Date Implant Expiration 10/04/21 08/14/23 09/11/23 Date Wasted Radioactive Material Time Implanted Tissue Implant Continue for Tissue Implant Documentation Tissue Identification Number Graft Prep Per Multi Care Technician Instructions: Tissue Preparation Method: Reconstitution Solution: Reconstitution Solution Lot Number Reconstitution Solution Expiration Date: Thawing Solution Thawing Solution Lot Number Thawing Solution Expiration Date Preparation Materials, Other Preparation Materials, Other Lot Number Preparation Materials, Other Expiration Date Tissue Prepared/Processed By Multi Care Technician Paperwork Completed Implant Type Comment Last Modified By: BILL LOPEZ RN WESSEL, JULIANA, RN WESSEL, JULIANA, RN 12/28/20 08:17:21 12/28/20 08:17:21 12/28/20 09:06:36 [facility] IntraOp Implant Log Audit 12/28/20 09:06:36 Hydroelectric Station Operator Chief: [email or web address] Modifier: [email or web address] <+> 3 Implant Identification Description <+> 3 Implant Identification Lot Number <+> 3 Implant Identification Multi Care Technician Name: <+> 3 Implant Expiration Date <+> 3 Implant Site <+> 3 Implant Quantity <+> 3 Implant Identification Catalog Number <+> 3 Implant Type <+> 3 Implant Has an Expiration Date <+> 3 Type [facility] IntraOp Intraoperative Assessment Entry 1 Handoff Method Bedside/Face to face Valid History / Yes Physical in Chart Preoperative Yes Checklist Reviewed/Evaluated Allergies Reviewed Yes Patient is Latex No Sensitive Isolation Not applicable Precautions Noted Level of WDL Consciousness (WDL = Alert, Oriented to Person, Place, and Time) Skin Assessment Yes Verified Present Upon IVs Arrival to OR Last Modified By: BILL LOPEZ RN 12/28/20 08:05:25 [facility] IntraOp Intraoperative Equipment Entry 1 Type Equipment Equipment Equipment CO2 Insufflator Intraop Monitoring Electrocardiogram Three lead placement (ECG) Electrode Placement Blood Pressure Non-Invasive BP Device Source Antiembolic Devices Antiembolic Devices Sequential compression device, knee high Antiembolic Device Bilateral Location Scopes Photo/Video Documentation Photo No Video No Intraop Equipment SCDS ON AND WORKING Comment PRIOR TO INDUCTION Last Modified By: BILL LOPEZ RN 12/28/20 08:05:32 [facility] IntraOp Medication Admin Entry 1 Medication/Irrigant Álvaro Cocktail 0.8mL Clonidine / 25mL 0.5% Ropivicaine / 24.2mL 1% Lido with Epi - [id number] Route of LOCAL Administration Dose Dose 50 Unit of Measure ml Administered By EMIL MENARD MD Procedure Irrigation Last Modified By: BILL LOPEZ RN 12/28/20 08:05:36 [facility] IntraOp Patient Positioning Entry 1 Procedure Gastric Bypass Gabriel-en-y Laparoscopic Body Position Supine Left Arm Position Secured on padded arm board Right Arm Position Secured on padded arm board Left Leg Position Uncrossed, parallel Right Leg Position Uncrossed, parallel Feet Uncrossed Yes Pressure Points Yes Checked Positioning Devices Arm Board, Foot Board, Safety Strap, Thighs, Safety Strap, Arm(s) Positioned By NORMAN العلي NA, EMIL MENARD MD, BILL LOPEZ RN Position Verified Positioning Yes Verified by Anesthesia Positioning Yes Verified by Surgeon Last Modified By: BILL LOPEZ RN 12/28/20 08:05:43 [facility] IntraOp Sign In Entry 1 Patient, Site, Yes Procedure Identified Surgical Consent Yes Confirmed Relevant Surgical Yes Documents Available Surgical Site N/A Marked by person performing procedure Anesthesia Machine Yes Check Completed Medication Checks Yes Completed Allergies Yes Airway Difficult Yes Airway/Aspiration Risk Difficult Yes Airway/Aspiration Intervention Equipment Available Blood Loss Risk Yes Blood Loss Yes Intervention Equipment Prepared and Ready Blood Identifiers Not applicable Verified Per Policy Hypothermia Risk Yes Warming Measures Yes Taken Last Modified By: BILL LOPEZ RN 12/28/20 08:05:47 [facility] Intra Op Sign Out Entry 1 RN Confirmation Surgical Yes Procedure(s) Identified Instrument, Sponge Yes and Sharps Counts Correct/Documented Equipment Problems N/A Documented Specimen Labeled N/A Correctly Urinary Catheter N/A Documented in IView Brown Patient Yes Recovery Concerns Reviewed with Anesthesia Provider, Surgeon and RN Brown Patient Yes Management Concerns Reviewed with Anesthesia Provider, Surgeon and RN Safety Checklist Yes Elements Complete? RN Sign Out BILL LOPEZ RN Signature RN Sign Out 12/28/20 09:57:00 Signature Date/Time Plan of Care Outcome - Fire Risk OUTCOME STATEMENT: Goal met Patient is free from injury related to surgical fire Plan of Care Outcome - Pt Positioning OUTCOME STATEMENT: Goal met Absence of signs and symptoms of positioning injury. Plan of Care Outcome - Skin Prep OUTCOME STATEMENT: Goal met Intraoperative care is consistent with measures to prevent infection Plan of Care Outcome - Xray/Images OUTCOME STATEMENT: N/A Absence of observable signs or symptoms of radiation injury Plan of Care Outcome - Counts OUTCOME STATEMENT: Goal met Absence of signs and symptoms of injury related to extraneous objects Last Modified By: BILL LOPEZ RN 12/28/20 09:57:12 [facility] Intra Op Sign Out Audit 12/28/20 09:57:12 Hydroelectric Station Operator Chief: [email or web address] Modifier: [email or web address] <+> 1 RN Sign Out Signature Date/Time [facility] IntraOp Skin Prep Entry 1 Procedure Gastric Bypass Gabriel-en-y Laparoscopic Prescribed N/A Pre-Surgical Prep Completed Prep Area ABDOMEN Intraop Prep Integumentary WDL Assessment WDL Prep Agents Chloraprep Prep by BILL LOPEZ RN Hair Removal Methods No hair removal performed Last Modified By: BILL LOPEZ RN 12/28/20 08:05:56 [facility] IntraOp Surgical Procedures Entry 1 Procedure Gastric Bypass Gabriel-en-y Laparoscopic Additional LAPAROSCOPIC GABRIEL-EN-Y Procedure GASTRIC BYPASS Description Primary Procedure Yes Primary Surgeon EMIL MENARD MD Start 12/28/20 07:56:00 Stop 12/28/20 09:54:00 Anesthesia Type General Specialty General Wound Class I - Clean Last Modified By: BILL LOPEZ RN 12/28/20 09:56:53 [facility] IntraOp Surgical Procedures Audit 12/28/20 09:56:53 Hydroelectric Station Operator Chief: RUKHSANA Modifier: [email or web address] <+> 1 Stop [facility] IntraOp Time Out Entry 1 Procedure to be Gastric Bypass Performed Gabriel-en-y Laparoscopic Time Out Time Out Pause Time 12/28/20 07:55:00 All activity Yes suspended (unless life threatening emergency) Team Verbally Correct patient Confirms Information identity, Correct side and site are marked, Consent form is present and accurate, Agreement on the procedure to be done, Correct patient position, Relevant images/results properly labeled/appropriately displayed, Confirm antibiotics have been administered, Confirm the skin prep has dried, Confirm prosthesis/implant/devic e is present, Performed in location of procedure after prepped/draped Antibiotic Yes Prophylaxis Administered Or In Progress Within the Last 60 Minutes Beta Vale N/A Administered Venous Yes Thromboembolism Prophylaxis Required Anticipated Critical Events Surgeon Critical or unexpected steps, Special equipment need, Special instrumentation need Anesthesia Provider Patient specific concerns Nursing Assures Sterility of instruments, Implant Availability Essential Imaging N/A Labeled and Displayed Last Modified By: BILL LOPEZ RN 12/28/20 08:00:55 Case Comments <None> Finalized By: BILL LOPEZ RN Document Signatures Signed By: BILL LOPEZ RN 12/28/20 09:57 documented in this encounter Plan of Treatment Not on file documented as of this encounter Visit Diagnoses Not on filedocumented in this encounter
--- OUTSIDE RECORDS SUMMARY | 2025-04-02 14:47 | XMS_ITS | Encounter Summary ---
Author Organization [employer] ([place], [place], [place], [place]) Address [address] [place] [address] Care Team Providers Care Cco Name Role Phone Unavailable Primary Care Provider Unavailabl e Encounter Details Date Type Department Care Team (Late st Contact Info) Description 12/29/[address] [facility] [place] [facility] [place] [address] ProviderJonatan MD [facility] [place] [address] Social History Tobacco Use Types [...] Cerner Conversion Note - Jonatan ProviderMD - 12/29/2020 1:07 PM CDT Final Discharge Planning Entered On: 12/29/2020 13:07 EDT Performed On: 12/29/2020 13:07 EDT by Yesenia Pandya Rn Final Discharge Planning Discharge Arrangements : Patient Post-Acute Information Patient Name: KARI GARCIA Gender: Female : [birth year] Age: 30 Years No Post-Acute Placement(s) Listed No Post-Acute Service(s) Listed No [place] Referral(s) Listed Patient Offered Choice/Affiliations Explained : No Designation of Choice Signed : No Important Medicare Message Reviewed With : Other: NA Transportation Needs : Car Follow Up Appointment Scheduled : Yes Is Patient High/Moderate Readmission Risk? : No Patient/Family Notified of Plan : Yes Is Patient Ready for Discharge? : Yes Physician Notified Patient is Ready for Discharge? : Yes Discharge To Care Management : Home/Residential/[facility] or Self Care -01 Yesenia Pandya Rn - 12/29/2020 13:07 EDT Final Narrative Note Final Narrative Note : home no needs Yesenia Pandya Rn - 12/29/2020 13:07 EDT Electronically signed by Dee [facility] Conversion Surgeon Assistant Cerner at 10/15/2022 12:31 PM CDT documented in this encounter Plan of Treatment Not on file documented as of this encounter Visit Diagnoses Not on filedocumented in this encounter
--- OUTSIDE RECORDS SUMMARY | 2025-04-02 14:47 | XMS_ITS | Encounter Summary ---
Author Organization [employer] ([place], [place], [place], [place]) Address [address] [place] [address] Care Team Providers Care Stockroom Associate Name Role Phone Unavailable Primary Care Provider Unavailabl e Encounter Details Date Type Department Care Team (Late st Contact Info) Description 12/29/2020 Transcribed Document [facility] [place] [address] [place] [address] ProviderJonatan MD [address] [employer], [place] [id number] Social History Tobacco Use Types Packs/Day Years [...] Conversion Note - Jonatan ProviderMD - 12/29/2020 8:38 AM CDT UM Authorization Entered On: 12/29/2020 8:38 EDT Performed On: 12/29/2020 8:38 EDT by JAZLYN AGUILAR RN-Utilization Review Primary Insurance Authorization Authorization and Policy Numbers : Insurance 1 Health Plan: [employer] Policy Number: [id number] Authorization Number: [id number] Insurance Primary Name : [employer] Policy Number: [id number] Authorization Status-Primary : Admit approved Reference Number-Primary : [id number] Authorization Number-Primary : [id number] Number of Days Authorized-Primary : 0 Day(s) Authorized Service Begin Date-Primary : 12/28/2020 EDT Authorized Service End Date-Primary : 12/28/2020 EDT Historical Authorization Comments-Primary : Comment 1: [place] approved per Star note for inpt 1 day (GIFTY CANTU, RN-Utilization Review 12/27/2020 10:02) JAZLYN AGUILAR RN-Utilization Review - 12/29/2020 8:38 EDT Electronically signed by Dee [facility] Conversion Punch Out Crew Member Cerner at 10/15/2022 12:18 PM CDT documented in this encounter Plan of Treatment Not on file documented as of this encounter Visit Diagnoses Not on filedocumented in this encounter
--- OUTSIDE RECORDS SUMMARY | 2025-04-02 14:47 | XMS_ITS | Encounter Summary ---
Author Organization [employer] ([place], [place], [place], [place]) Address [address] [place] [address] Care Team Providers Care Material Spreader Name Role Phone Unavailable Primary Care Provider Unavailabl e Encounter Details Date Type Department Care Team (Late st Contact Info) Description 12/29/2020 Transcribed Document [facility] [place] [facility] [place] [address] ProviderJonatan MD [facility] [place] [address] Social History Tobacco Use Types [...] Conversion Note - Jonatan ProviderMD - 12/29/2020 9:01 AM CDT Initial Discharge Planning Entered On: 12/29/2020 9:03 EDT Performed On: 12/29/2020 9:01 EDT by Yesenia Pandya Rn Initial Assessment I Previously Documented Living Environment : No qualifying data available. Living Situation : Home Patient Lives With : Dependent Child/Children, Spouse Is the Patient a Caregiver at Home? : No Emergency Contact #1 : Lilia Duran Emergency Contact #1 Emergency Contact #1 Relationship : parent Emergency Contact #2 : . Emergency Contact #2 Phone Number : . Emergency Contact #2 Relationship : . Does Patient have PCP Listed? : Yes Legal Guardian : No Is Guardianship Needed : No Yesenia Pandya Rn - 12/29/2020 9:01 EDT Initial Assessment II Sensory and Motor Deficits : None Current Home Treatments and Equipment : None Services and Community Resources : Other: NA Does the Patient have a Floor to SNF Benefit? : No Yesenia Pandya Rn - 12/29/2020 9:01 EDT Discharge Needs I Anticipated Discharge Date : 12/31/2020 EDT Anticipated Discharge To, CM : Home with family care Current Home Treatment/Equipment : Current Home Treatment/Equipment No qualifying data available. Post Acute/Home Treatments : None Documentation Status Complete : Yes Yesenia Pandya Rn - 12/29/2020 9:01 EDT Discharge Needs II Professional Skilled Services : Professional Skilled Services No qualifying data available. Services and Community Resources : Other: NA Needs Assistance with Transportation : No Discharge Options Discussed with Patient : Discharge transportation, DME, Home Health Yesenia Pandya Rn - 12/29/2020 9:01 EDT Narrative Note Narrative Note : 30yo female patient s/p gastric procedure. INP. L/2. ELOS 2 days. iADLs. lives with family who will transport home. no identified needs. PLAN: patient will dc home in 1 day. CM will follow. Yesenia Pandya Rn - 12/29/2020 9:01 EDT documented in this encounter Plan of Treatment Not on file documented as of this encounter Visit Diagnoses Not on filedocumented in this encounter
--- OUTSIDE RECORDS SUMMARY | 2025-04-02 14:47 | XMS_ITS | Encounter Summary ---
Author Organization [employer] ([place], [place], [place], [place]) Address [address] [place] [address] Care Team Providers Care Forestry Adviser Name Role Phone Unavailable Primary Care Provider Unavailabl e Encounter Details Date Type Department Care Team (Late st Contact Info) Description 12/29/2020 Transcribed Document [facility] [address] [place] [address] ProviderJonatan MD [address] [place] [address] Social History Tobacco Use Types [...] Conversion Note - Jonatan ProviderMD - 12/29/2020 12:21 PM CDT [place] [phone] KARI GARCIA :1990 Visit Time:12/28/2020 Your Visit Summary Your Care Team Admitting Physician - VERN MENARD MD Attending Physician - VERN MENARD MD Primary Care Physician - MAYLIN, AUNDREA Referring Physician - VERN MENARD MD Your Diagnosis Morbid obesity, Morbid (severe) obesity due to excess calories, Morbid (severe) obesity due to excess calories These Are Your Goals Amb in [place] and go home tomorrow. - Met Discharge Vitals Temperature 36.8 ??C Heart Rate (Monitored) 58 Respiratory Rate 16 Blood Pressure 135/88 What to do next Instructions From Your Care Team Discharge Follow Up Instructions: call office on friday for followup appointment Follow Up Instructions: followup next weekCall for [id number] Activity: Discharge Activity: No heavy lifting over 10 lbs Diet: Warm liquids in the morning. May progress to full liquids and soft high protein foods as tolerated (Cottage cheese, chicken salad, eggs, etc). Make sure foods are wet . Drink 64 oz of fluids per day. Refer to Álvaro-handbook., Discharge Diet: Other (see Special Instructions) Follow-Up Appointments Follow Up with VERN MENARD MD When 01/04/2021 08:30 AM EDT Comments Appointment has been made Where: [facility] [address] [place], [place] [id number]- Medications What How Much When Instructions Next Dose omeprazole (PriLOSEC 20 mg oral delayed release capsule) 1 Capsule(s) Oral Every Day Refills: 2 before a meal Pickup at [facility] ondansetron (Zofran 4 mg oral tablet) 1 Tablet(s) Oral Every 8 Hours as needed for Nausea Refills: [address] [facility] oxyCODONE (oxyCODONE 5 mg oral tablet) 1 Tablet(s) Oral Every 6 Hours as needed for as needed for pain Pickup at [facility] ALPRAZolam (Xanax) 0.25 Milligram(s) Oral Every 8 Hours as needed for as needed for anxiety cyclobenzaprine 10 Milligram(s) Oral At Bedtime as needed for Pain levocetirizine (Xyzal) 5 Milligram(s) Oral Every Evening vortioxetine (Trintellix 20 mg oral tablet) 1 Tablet(s) Oral At Bedtime Pharmacy Information [facility]: [address] [place], [place] [id number] [phone] Take your medications faithfully. Do NOT skip medication. Do NOT stop taking medications without the direction of a physician. Carry a list of your medications with you at all times, and take this medication list with you to your first follow up visit. Report any side effects. Avoid herbal remedies unless discussed with your physician. As part of your treatment plan, your physician may have prescribed a limited course of a controlled substance. This medication may be given to help people with moderate or severe pain or for other medical conditions, but there are risks involved with treatment. Common side effects may include nausea, constipation, drowsiness, sweating, itching, dry mouth, and rash. More serious side effects may include cognitive and motor impairment, like problems with thinking, concentrating, alertness, and movement (e.g. slowed reflexes), and driving and operating heavy machinery can be dangerous. It is important for you to talk to your physician if you have these side effects or questions. These controlled substances can produce physical dependence and be habit-forming if taken for an extended period of time, which means that the body has gotten used to them and may experience withdrawal symptoms if they are abruptly stopped. Withdrawal symptoms can include runny nose, sweating, goose bumps, diarrhea, abdominal cramping, rapid heartbeat, difficulty sleeping, and nervousness. Please dispose of unused and medications per your retail pharmacy guidance. Allergies Zosyn (Swelling of throat.) amoxicillin (Facial swelling) Education Materials [facility] Dr. Vern Kulkarni, [place] - Office - Physician Exchange Discharge Instructions Use your patient handbook! DIET ??? Staying hydrated is your main goal! Be sure to drink at least 64 ounces of fluid/water every day. ??? Remember the importance of hot liquids at least twice a day to reduce mucus build up and nausea. ??? Begin using your protein supplements as soon as you get home. Work up to at least 60-80 grams of protein from your supplements. That???s about 3-4 supplements a day. ??? You may start your soft, high protein diet only when you are drinking 64 oz of fluid and getting close to your 60 grams of protein from your supplements. ??? Stick with only the foods in phase three of your handbook. These foods are soft, moist and high in protein. Aim for about 3 Tbsp or 1.5 oz per meal. Remember no drinking with food or the hour after. ??? Use the fluid and protein log in your patient handbook to track your intake. ACTIVITY ??? No lifting over 20 pounds within two weeks after surgery, or until the doctor recommends it. ??? No water exercise for two weeks. ??? Do not sit or stand for long periods of time. When you do sit, change positions frequently. ??? Do not drive until 1 week after surgery and until you are off all pain medication. ??? You may resume sexual relations when comfortable. ??? Continue to use the spirometer (breathing exercise) that you brought home at least 4 times a day for the first week. ??? Begin to walk 30 minutes each day. At first you may need to take two or three 10 to 15 minute walks. Gradually increase the distance you walk as you tolerate. MEDICINES ??? Take your medicines as we discussed at discharge. There may be some changes from what you were on before surgery. Fill prescriptions given at hospital and begin taking the omeprazole (or equivalent) daily. ??? Post???op vitamins will begin after your post-op appointment. ??? Take a dose of Milk of Magnesia each day that you are taking pain medication or until you have normal bowel movement. ??? Take 2 Extra Strength Tylenol (500mg each for a total of 1000mg) every 6 hours not to exceed 4 doses in 24 hours. Use pain medication prescription for breakthrough pain. DIABETES ??? If you are diabetic, check your glucose. Call the office if it is greater than 200 more than 3 times in 24-48 hours. WOUND CARE ??? You will be sent home with bandages over your incisions. You should remove all the bandages and shower over your wounds using antibacterial soap, such as Dial, the day after you return home. Do not re-cover your jg. Pat dry after shower with a clean towel. If you have some wound drainage, it is still fine to shower. You may use a dressing or sanitary napkin to recover your drain site if needed. ??? Please notify [facility] of any drainage, type and amount, change in well-being: fever, increasing pain, inability to tolerate fluids or liquids. REMEMBER As you begin to use your body fat as fuel, you will become ketotic and therefore a bit nauseated. It is important that you continue your protein, even when you are not hungry or feel nauseated. When to Call Us ? If you have abdominal pain worse than you ever had in the hospital. ? If you have a temperature that is 101 degrees or more. ? If you have unusual swelling in one or both legs ? If you vomit and it looks different from what you just ate/drank. ? If you have increased redness or drainage from incision sites. ? If you have any other symptoms that concern you. Use your Patient Handbook! Many topics including nausea, vomiting, diarrhea, constipation, sleeplessness, headaches, and more are covered within this book. If you do not find an answer in your book, please call the Center at [phone] ondansetron (oral) (on ROEL oconnell) iWll [employer] Zuplenz What is the most important information I should know about ondansetron? You should not use ondansetron if you are also using apomorphine (Apokyn). What is ondansetron? Ondansetron blocks the actions of chemicals in the body that can trigger nausea and vomiting. Ondansetron is used to prevent nausea and vomiting that may be caused by surgery, cancer chemotherapy, or radiation treatment. Ondansetron may be used for purposes not listed in this medication guide. What should I discuss with my health care provider before taking ondansetron? You should not use ondansetron if: ?? you are also using apomorphine (Apokyn); or ?? you are allergic to ondansetron or similar medicines (dolasetron, granisetron, palonosetron). To make sure ondansetron is safe for you, tell your doctor if you have: ?? liver disease; ?? an electrolyte imbalance (such as low levels of potassium or magnesium in your blood); ?? congestive heart failure, slow heartbeats; ?? a personal or family history of long QT syndrome; or ?? a blockage in your digestive tract (stomach or intestines). Ondansetron is not expected to harm an unborn baby. Tell your doctor if you are . It is not known whether ondansetron passes into breast milk or if it could harm a nursing baby. Tell your doctor if you are breast-feeding a baby. Ondansetron is not approved for use by anyone younger than 4 years old. Ondansetron orally disintegrating tablets may contain phenylalanine. Tell your doctor if you have phenylketonuria (PKU). How should I take ondansetron? Follow all directions on your prescription label. Do not take this medicine in larger or smaller amounts or for longer than recommended. Ondansetron can be taken with or without food. The first dose of ondansetron is usually taken before the start of your surgery, chemotherapy, or radiation treatment. Follow your doctor's dosing instructions very carefully. Take the ondansetron regular tablet with a full glass of water. To take the orally disintegrating tablet (Zofran ODT): ?? Keep the tablet in its blister pack until you are ready to take it. Open the package and peel back the foil. Do not push a tablet through the foil or you may damage the tablet. ?? Use dry hands to remove the tablet and place it in your mouth. ?? Do not swallow the tablet whole. Allow it to dissolve in your mouth without chewing. ?? Swallow several times as the tablet dissolves. To use ondansetron oral soluble film (strip) (Zuplenz): ?? Keep the strip in the foil pouch until you are ready to use the medicine. ?? Using dry hands, remove the strip and place it on your tongue. It will begin to dissolve right away. ?? Do not swallow the strip whole. Allow it to dissolve in your mouth without chewing. ?? Swallow several times after the strip dissolves. If desired, you may drink liquid to help swallow the dissolved strip. ?? Wash your hands after using Zuplenz. Measure liquid medicine with the dosing syringe provided, or with a special dose-measuring spoon or medicine cup. If you do not have a dose-measuring device, ask your pharmacist for one. Store at room temperature away from moisture, heat, and light. Store liquid medicine in an upright position. What happens if I miss a dose? Take the missed dose as soon as you remember. Skip the missed dose if it is almost time for your next scheduled dose. Do not take extra medicine to make up the missed dose. What happens if I overdose? Seek emergency medical attention or call the Poison Help line at . Overdose symptoms may include sudden loss of vision, severe constipation, feeling light-headed, or fainting. What should I avoid while taking ondansetron? Ondansetron may impair your thinking or reactions. Be careful if you drive or do anything that requires you to be alert. What are the possible side effects of ondansetron? Get emergency medical help if you have signs of an allergic reaction: rash, hives; fever, chills, difficult breathing; swelling of your face, lips, tongue, or throat. Call your doctor at once if you have: ?? severe constipation, stomach pain, or bloating; ?? headache with chest pain and severe dizziness, fainting, fast or pounding heartbeats; ?? fast or pounding heartbeats; ?? jaundice (yellowing of the skin or eyes); ?? blurred vision or temporary vision loss (lasting from only a few minutes to several hours); ?? high levels of serotonin in the body--agitation, hallucinations, fever, fast heart rate, overactive reflexes, nausea, vomiting, diarrhea, loss of coordination, fainting. Common side effects may include: ?? diarrhea or constipation; ?? headache; ?? drowsiness; or ?? tired feeling. This is not a complete list of side effects and others may occur. Call your doctor for medical advice about side effects. You may report side effects to FDA at 6-929-OLC-6713. What other drugs will affect ondansetron? Ondansetron can cause a serious heart problem, especially if you use certain medicines at the same time, including antibiotics, antidepressants, heart rhythm medicine, antipsychotic medicines, and medicines to treat cancer, malaria, HIV or AIDS. Tell your doctor about all medicines you use, and those you start or stop using during your treatment with ondansetron. Taking ondansetron while you are using certain other medicines can cause high levels of serotonin to build up in your body, a condition called 'serotonin syndrome,' which can be fatal. Tell your doctor if you also use: ?? medicine to treat depression; ?? medicine to treat a psychiatric disorder; ?? a narcotic (opioid) medication; or ?? medicine to prevent nausea and vomiting. This list is not complete and many other drugs can interact with ondansetron. This includes prescription and ncuk-cdm-gyoypxk medicines, vitamins, and herbal products. Give a list of all your medicines to any healthcare provider who treats you. Where can I get more information? Your pharmacist can provide more information about ondansetron. Remember, keep this and all other medicines out of the reach of children, never share your medicines with others, and use this medication only for the indication prescribed. Every effort has been made to ensure that the information provided by [employer] is accurate, up-to-date, and complete, but no guarantee is made to that effect. Drug information contained herein may be time sensitive. [employer] information has been compiled for use by healthcare practitioners and consumers in the [place] and therefore [employer] does not warrant that uses outside of the [place] are appropriate, unless specifically indicated otherwise. [employer] drug information does not endorse drugs, diagnose patients or recommend therapy. [employer] drug information is an informational resource designed to assist licensed healthcare practitioners in caring for their patients and/or to serve consumers viewing this service as a supplement to, and not a substitute for, the expertise, skill, knowledge and judgment of healthcare practitioners. The absence of a warning for a given drug or drug combination in no way should be construed to indicate that the drug or drug combination is safe, effective or appropriate for any given patient. [employer] does not assume any responsibility for any aspect of healthcare administered with the aid of information [employer] provides. The information contained herein is not intended to cover all possible uses, directions, precautions, warnings, drug interactions, allergic reactions, or adverse effects. If you have questions about the drugs you are taking, check with your doctor, nurse or pharmacist. Copyright 9974-1991 [employer]. Version: 13.01. Revision Date: 04/19/2016. omeprazole (oh MEP ra zol) FIRST Omeprazole, Omeprazole + SyrSpend SF Jelly, PriLOSEC, PriLOSEC OTC What is the most important information I should know about omeprazole? Omeprazole can cause kidney problems. Tell your doctor if you are urinating less than usual, or if you have blood in your urine. Diarrhea may be a sign of a new infection. Call your doctor if you have diarrhea that is watery or has blood in it. Omeprazole may cause new or worsening symptoms of lupus. Tell your doctor if you have joint pain and a skin rash on your cheeks or arms that worsens in sunlight. You may be more likely to have a broken bone while taking this medicine planner/scheduler or more than once per day. What is omeprazole? Omeprazole is used to treat symptoms of gastroesophageal reflux disease (GERD) and other conditions caused by excess stomach acid. Omeprazole is also used to promote healing of erosive esophagitis (damage to your esophagus caused by stomach acid). Omeprazole may also be given together with antibiotics to treat gastric ulcer caused by infection with Helicobacter pylori (H. pylori). Mcba-rsl-dwkziqz (OTC) omeprazole is used in adults to help control heartburn that occurs 2 or more days per week. This medicine not for immediate relief of heartburn symptoms. OTC omeprazole must be taken on a regular basis for 14 days in a row. Omeprazole may also be used for purposes not listed in this medication guide. What should I discuss with my healthcare provider before taking omeprazole? Heartburn can mimic early symptoms of a heart attack. Get emergency medical help if you have chest pain that spreads to your jaw or shoulder and you feel sweaty or light-headed. You should not use omeprazole if you are allergic to it, or if: ?? you are also allergic to medicines like omeprazole, such as esomeprazole, lansoprazole, pantoprazole, rabeprazole, Nexium, Prevacid, Protonix, and others; ?? you had breathing problems, kidney problems, or a severe allergic reaction after taking omeprazole in the past; or ?? you also take HIV medication that contains rilpivirine (such as Complera, Edurant, Odefsey, Juluca). Ask a doctor or pharmacist if this medicine is safe to use if you have: ?? trouble or pain with swallowing; ?? bloody or black stools, vomit that looks like blood or coffee grounds; ?? heartburn that has lasted for over 3 months; ?? frequent chest pain, heartburn with wheezing; ?? unexplained weight loss; ?? nausea or vomiting, stomach pain; ?? liver disease; ?? low levels of magnesium in your blood; or ?? osteoporosis or low bone mineral density (osteopenia). You may be more likely to have a broken bone in your hip, wrist, or spine while taking a proton pump inhibitor long-term or more than once per day. Talk with your doctor about ways to keep your bones healthy. Ask a doctor before using this medicine if you are or . Do not give this medicine to a child without medical advice. How should I take omeprazole? Follow all directions on your prescription label and read all medication guides or instruction sheets. Use the medicine exactly as directed. Use Prilosec OTC (qteq-vvq-akxemve) exactly as directed on the label, or as prescribed by your doctor. Read and carefully follow any Instructions for Use provided with your medicine. Ask your doctor or pharmacist if you do not understand these instructions. Shake the oral suspension (liquid) before you measure a dose. Use the dosing syringe provided, or use a medicine dose-measuring device (not a kitchen spoon). If you cannot swallow a capsule whole, open it and sprinkle the medicine into a spoonful of applesauce. Swallow the mixture right away without chewing. Do not save it for later use. You must dissolve omeprazole powder in a small amount of water. This mixture can either be swallowed or given through a nasogastric (NG) feeding tube using a catheter-tipped syringe. Use this medicine for the full prescribed length of time, even if your symptoms quickly improve. OTC omeprazole should be taken for only 14 days in a row. It may take 1 to 4 days before your symptoms improve. Allow at least 4 months to pass before you start a new 14-day course of treatment. Call your doctor if your symptoms do not improve, or if they get worse. Some conditions are treated with a combination of omeprazole and antibiotics. Use all medications as directed. This medicine can affect the results of certain medical tests. Tell any doctor who treats you that you are using omeprazole. Store at room temperature away from moisture and heat. What happens if I miss a dose? Take the medicine as soon as you can, but skip the missed dose if it is almost time for your next dose. Do not take two doses at one time. What happens if I overdose? Seek emergency medical attention or call the Poison Help line at . What should I avoid while taking omeprazole? This medicine can cause diarrhea, which may be a sign of a new infection. If you have diarrhea that is watery or bloody, call your doctor before using anti-diarrhea medicine. What are the possible side effects of omeprazole? Get emergency medical help if you have signs of an allergic reaction: hives; difficulty breathing; swelling of your face, lips, tongue, or throat. Stop using omeprazole and call your doctor at once if you have: ?? severe stomach pain, diarrhea that is watery or bloody; ?? new or unusual pain in your wrist, thigh, hip, or back; ?? seizure (convulsions); ?? kidney problems--fever, rash, nausea, loss of appetite, joint pain, urinating less than usual, blood in your urine, weight gain; ?? low magnesium--dizziness, irregular heartbeats, feeling jittery, muscle cramps, muscle spasms, cough or choking feeling; or ?? new or worsening symptoms of lupus--joint pain, and a skin rash on your cheeks or arms that worsens in sunlight. Taking omeprazole long-term may cause you to develop stomach growths called fundic gland polyps. Talk with your doctor about this risk. If you use omeprazole for longer than 3 years, you could develop a vitamin B-12 deficiency. Talk to your doctor about how to manage this condition if you develop it. Common side effects may include: ?? cold symptoms such as stuffy nose, sneezing, sore throat (especially in children); ?? fever (especially in children); ?? stomach pain, gas; ?? nausea, vomiting, diarrhea; or ?? headache. This is not a complete list of side effects and others may occur. Call your doctor for medical advice about side effects. You may report side effects to FDA at 6-466-SJG-7947. What other drugs will affect omeprazole? Sometimes it is not safe to use certain medications at the same time. Some drugs can affect your blood levels of other drugs you take, which may increase side effects or make the medications less effective. Tell your doctor about all your current medicines. Many drugs can affect omeprazole, especially: ?? digoxin; ?? clopidogrel; ?? methotrexate; ?? Sunnyside's wort; ?? a diuretic or 'water pill'; or ?? an antibiotic--amoxicillin, clarithromycin, rifampin. This list is not complete and many other drugs may affect omeprazole. This includes prescription and rmxh-shf-plknlor medicines, vitamins, and herbal products. Not all possible drug interactions are listed here. Where can I get more information? Your pharmacist can provide more information about omeprazole. Remember, keep this and all other medicines out of the reach of children, never share your medicines with others, and use this medication only for the indication prescribed. Every effort has been made to ensure that the information provided by [employer]') is accurate, up-to-date, and complete, but no guarantee is made to that effect. Drug information contained herein may be time sensitive. [employer] information has been compiled for use by healthcare practitioners and consumers in the [place] and therefore [employer] does not warrant that uses outside of the [place] are appropriate, unless specifically indicated otherwise. [employer] drug information does not endorse drugs, diagnose patients or recommend therapy. [employer] drug information is an informational resource designed to assist licensed healthcare practitioners in caring for their patients and/or to serve consumers viewing this service as a supplement to, and not a substitute for, the expertise, skill, knowledge and judgment of healthcare practitioners. The absence of a warning for a given drug or drug combination in no way should be construed to indicate that the drug or drug combination is safe, effective or appropriate for any given patient. [employer] does not assume any responsibility for any aspect of healthcare administered with the aid of information [employer] provides. The information contained herein is not intended to cover all possible uses, directions, precautions, warnings, drug interactions, allergic reactions, or adverse effects. If you have questions about the drugs you are taking, check with your doctor, nurse or pharmacist. Copyright 1111-2970 [employer]. Version: .. Revision Date: 07/03/2020. oxycodone (ox i KOE done) Oxaydo, OxyCONTIN, Oxyfast, OxyIR, Roxicodone, Xtampza ER What is the most important information I should know about oxycodone? MISUSE OF OPIOID MEDICINE CAN CAUSE ADDICTION, OVERDOSE, OR . Keep the medication in a place where others cannot get to it. Taking opioid medicine during may cause life-threatening withdrawal symptoms in the . Fatal side effects can occur if you use opioid medicine with alcohol, or with other drugs that cause drowsiness or slow your breathing. What is oxycodone? Oxycodone is an opioid pain medication used to treat moderate to severe pain. The extended-release form of oxycodone is for aumlth-yvl-cjalu treatment of pain and should not be used on an as-needed basis for pain. Oxycodone may also be used for purposes not listed in this medication guide. What should I discuss with my healthcare provider before using oxycodone? You should not use oxycodone if you are allergic to it, or if you have: ?? severe asthma or breathing problems; or ?? a blockage in your stomach or intestines. You should not use oxycodone unless you are already using a similar opioid medicine and are tolerant to it. Most brands of oxycodone are not approved for use in people under 18. OxyContin should not be given to a child younger than 11 years old. Tell your doctor if you have ever had: ?? breathing problems, sleep apnea; ?? a head injury, or seizures; ?? drug or alcohol addiction, or mental illness; ?? liver or kidney disease; ?? urination problems; or ?? problems with your gallbladder, pancreas, or thyroid. If you use opioid medicine while you are , your baby could become dependent on the drug. This can cause life-threatening withdrawal symptoms in the baby after it is born. Babies born dependent on opioids may need medical treatment for several weeks. Ask a doctor before using opioid medicine if you are . Tell your doctor if you notice severe drowsiness or slow breathing in the nursing baby. How should I use oxycodone? Follow the directions on your prescription label and read all medication guides. Never use oxycodone in larger amounts, or for longer than prescribed. Tell your doctor if you feel an increased urge to take more of this medicine. Never share opioid medicine with another person, especially someone with a history of drug abuse or addiction. MISUSE CAN CAUSE ADDICTION, OVERDOSE, OR . Keep the medication in a place where others cannot get to it. Selling or giving away opioid medicine is against the law. Stop taking all other fcdhmo-hzg-twuum opioid pain medicines when you start taking extended-release oxycodone. Take oxycodone with food. Swallow the capsule or tablet whole to avoid exposure to a potentially fatal overdose. Do not crush, chew, break, open, or dissolve. If you cannot swallow a capsule whole, open it and sprinkle the medicine into a spoonful of pudding or applesauce. Swallow the mixture right away without chewing. Do not save it for later use. Never crush or break an oxycodone pill to inhale the powder or mix it into a liquid to inject the drug into your vein. This can cause in . Measure liquid medicine carefully. Use the dosing syringe provided, or use a medicine dose-measuring device (not a kitchen spoon). You should not stop using oxycodone suddenly. Follow your doctor's instructions about tapering your dose. Store at room temperature, away from heat, moisture, and light. Keep track of your medicine. Oxycodone is a drug of abuse and you should be aware if anyone is using your medicine improperly or without a prescription. Do not keep leftover opioid medication. Just one dose can cause in someone using this medicine accidentally or improperly. Ask your pharmacist where to locate a drug take-back disposal program. If there is no take-back program, flush the unused medicine down the toilet. What happens if I miss a dose? Since oxycodone is used for pain, you are not likely to miss a dose. Skip any missed dose if it is almost time for your next dose. Do not use two doses at one time. What happens if I overdose? Seek emergency medical attention or call the Poison Help line at . An opioid overdose can be fatal, especially in a child or other person using the medicine without a prescription. Overdose symptoms may include severe drowsiness, pinpoint pupils, slow breathing, or no breathing. Your doctor may recommend you get naloxone (a medicine to reverse an opioid overdose) and keep it with you at all times. A person caring for you can give the naloxone if you stop breathing or don't wake up. Your caregiver must still get emergency medical help and may need to perform CPR (cardiopulmonary resuscitation) on you while waiting for help to arrive. Anyone can buy naloxone from a pharmacy or local health department. Make sure any person caring for you knows where you keep naloxone and how to use it. What should I avoid while using oxycodone? Do not drink alcohol. Dangerous side effects or could occur. Avoid driving or operating machinery until you know how oxycodone will affect you. Dizziness or severe drowsiness can cause falls or other accidents. Avoid medication errors. Always check the brand and strength of oxycodone you get from the pharmacy. What are the possible side effects of oxycodone? Get emergency medical help if you have signs of an allergic reaction: hives; difficult breathing; swelling of your face, lips, tongue, or throat. Opioid medicine can slow or stop your breathing, and may occur. A person caring for you should give naloxone and/or seek emergency medical attention if you have slow breathing with long pauses, blue colored lips, or if you are hard to wake up. Call your doctor at once if you have: ?? noisy breathing, sighing, shallow breathing, breathing that stops during sleep; ?? a slow heart rate or weak pulse; ?? a light-headed feeling, like you might pass out; ?? confusion, unusual thoughts or behavior; ?? seizure (convulsions); ?? low cortisol levels-- nausea, vomiting, loss of appetite, dizziness, worsening tiredness or weakness; or ?? high levels of serotonin in the body--agitation, hallucinations, fever, sweating, shivering, fast heart rate, muscle stiffness, twitching, loss of coordination, nausea, vomiting, diarrhea. Serious breathing problems may be more likely in older adults and in those who are debilitated or have wasting syndrome or chronic breathing disorders. Common side effects may include: ?? drowsiness, headache, dizziness, tiredness; or ?? constipation, stomach pain, nausea, vomiting. This is not a complete list of side effects and others may occur. Call your doctor for medical advice about side effects. You may report side effects to FDA at 5-988-PYG-6764. What other drugs will affect oxycodone? You may have breathing problems or withdrawal symptoms if you start or stop taking certain other medicines. Tell your doctor if you also use an antibiotic, antifungal medication, heart or blood pressure medication, seizure medication, or medicine to treat HIV or hepatitis C. Opioid medication can interact with many other drugs and cause dangerous side effects or . Be sure your doctor knows if you also use: ?? cold or allergy medicines, bronchodilator asthma/COPD medication, or a diuretic ('water pill'); ?? medicines for motion sickness, irritable bowel syndrome, or overactive bladder; ?? other opioids--opioid pain medicine or prescription cough medicine; ?? a sedative like Valium--diazepam, alprazolam, lorazepam, Xanax, Klonopin, Versed, and others; ?? drugs that make you sleepy or slow your breathing--a sleeping pill, muscle relaxer, medicine to treat mood disorders or mental illness; or ?? drugs that affect serotonin levels in your body--a stimulant, or medicine for depression, Parkinson's disease, migraine headaches, serious infections, or nausea and vomiting. This list is not complete and many other drugs may affect oxycodone. This includes prescription and sjhb-yny-vprwxjl medicines, vitamins, and herbal products. Not all possible drug interactions are listed here. Where can I get more information? Your pharmacist can provide more information about oxycodone. Remember, keep this and all other medicines out of the reach of children, never share your medicines with others, and use this medication only for the indication prescribed. Every effort has been made to ensure that the information provided by [employer]. ('[employer]') is accurate, up-to-date, and complete, but no guarantee is made to that effect. Drug information contained herein may be time sensitive. [employer] information has been compiled for use by healthcare practitioners and consumers in the [place] and therefore [employer] does not warrant that uses outside of the [place] are appropriate, unless specifically indicated otherwise. [employer] drug information does not endorse drugs, diagnose patients or recommend therapy. [employer] drug information is an informational resource designed to assist licensed healthcare practitioners in caring for their patients and/or to serve consumers viewing this service as a supplement to, and not a substitute for, the expertise, skill, knowledge and judgment of healthcare practitioners. The absence of a warning for a given drug or drug combination in no way should be construed to indicate that the drug or drug combination is safe, effective or appropriate for any given patient. [employer] does not assume any responsibility for any aspect of healthcare administered with the aid of information [employer] provides. The information contained herein is not intended to cover all possible uses, directions, precautions, warnings, drug interactions, allergic reactions, or adverse effects. If you have questions about the drugs you are taking, check with your doctor, nurse or pharmacist. Copyright 9084-4343 [employer]. Version: 14.02. Revision Date: 07/27/2020. Emergency Awareness and Preventative Care STROKE is an EMERGENCY Every Minute Counts Act FAST and Check for these signs: FACE Does the face look uneven? ARM Does one arm drift down? SPEECH Does their speech sound strange? TIME Call at any sign of stroke Stroke Risk Factors Atrial Fibrillation (irregular heartbeat) Diabetes Family history of stroke Heart Disease Heavy alcohol use High Blood Pressure High Cholesterol Physical inactivity and obesity Smoking Cigarette Smoking The facts are clear, cigarette smoking will shorten your life. Smoking can cause many illnesses along the way. As a healthcare provider, we recommend that you stop smoking. Assistance with quitting is available by contacting 4-408-ICQW-NOW. This is a free resource providing counseling, support, and referral. Or you may contact your personal physician. [employer] Suicide Prevention Lifeline: The National Suicide Prevention Lifeline is a national network of local crisis centers that provides free and confidential emotional support to people in suicidal crisis or emotional distress 24 hours a day, 7 days a week. Don't Wait! Stop a Heart Attack Before it Starts What is a heart attack? A heart attack is damage or to a part of the heart from severely decreased or lack of blood flow to the heart. Over time, arteries can become narrow from the buildup of fat and cholesterol, which is called plaque. The plaque can rupture causing a blood clot to form. When the blood clot forms, the artery can become severely narrowed or completely blocked, causing a heart attack. Heart attack is the leading cause of in the [place]. 85% of muscle damage occurs within the first 2 hours. Delay in the recognition of heart attack symptoms increases the chances of . Know the early symptoms of a heart attack: Nausea Feeling of fullness in chest Jaw Pain Pain that travels down one or both arms Fatigue/being tired Anxiety Back Pain Chest pressure, squeezing, or discomfort Shortness of breath Sweating, or a cold sweat Feeling of impending doom There are unusual signs of a heart attack, too! Women, the elderly, and diabetics may present with atypical symptoms: Fainting/dizziness Weakness Confusion Risk Factors for a Heart Attack Some heart disease risk factors, such as age and family history, cannot be changed. Others, like smoking and lack of exercise, can be changed. Smoking High Cholesterol High Blood Pressure Family History Obesity Age Gender (Males are at higher risk) Lack of Exercise Diabetes Diet Stress Excessive Alcohol Intake If you or someone you know is experiencing the signs and symptoms of a heart attack, DON???T DELAY. Call immediately and seek help. If someone collapses, perform CPR! Do not attempt to drive if you are having symptoms of heart attack. Hands-Only CPR Why Hands-Only CPR? Hands-Only CPR has been shown to be as effective as conventional CPR for cardiac arrests that occur outside of a hospital. Survival depends on immediately receiving CPR from someone nearby. How do you perform Hands-Only CPR? There are two easy steps: Call 9-1-1 if you see a teen or adult collapse Push hard and fast in the center of the chest at a beat of 100 beats per minute. Save a life! 4 WAYS TO GET AHEAD OF SEPSIS SEPSIS is a MEDICAL EMERGENCY. Time matters! Infections put you and your family at risk for a life-threatening condition called sepsis. Sepsis is the body's extreme response to an infection. It is life-threatening, and without timely treatment, sepsis can rapidly lead to tissue damage, organ failure, and . Sepsis happens when an infection you already have-in your skin, lungs, urinary tract or somewhere else-triggers a chain reaction throughout your body. 1 PREVENT INFECTIONS Take good care of chronic conditions. Talk to your doctor about getting the recommended vaccines. 2 PRACTICE GOOD HYGIENE Wash your hands frequently. Keep cuts or open sores clean and covered until they are healed. 3 KNOW THE SYMPTOMS Confusion or disorientation Shortness of breath High heart rate Fever, shivering, or feeling very cold Extreme pain or discomfort Clammy or sweaty skin 4 ACT FAST Get medical care IMMEDIATELY if you suspect sepsis or if you have an infection that is not getting better or is getting worse. To learn more about sepsis and how to prevent infections, visit www.cdc.gov/sepsis. Test Results Laboratory or Other Results This Visit (last charted value for your 12/28/2020 visit) Hematology 12/29/2020 3:15 AM WBC: 10.9 K/uL -- Normal range between ( 3.9 and 10.0 ) RBC: 4.47 Million/uL -- Normal range between ( 3.93 and 5.22 ) Hct: 40.9 % -- Normal range between ( 34.1 and 44.9 ) Hgb: 13.3 Gram/dL -- Normal range between ( 11.2 and 15.7 ) Platelet Count: 208 K/uL -- Normal range between ( 163 and 369 ) MCH: 29.8 pg -- Normal range between ( 25.6 and 32.2 ) MCHC: 32.5 Gram/dL -- Normal range between ( 32.3 and 36.5 ) MCV: 91.5 fL -- Normal range between ( 79.0 and 94.8 ) Slide Review: No Eos %: 0.1 % -- Normal range between ( 1.0 and 7.0 ) Bailey #: 0.78 K/uL -- Normal range between ( 0.24 and 0.82 ) Eos #: 0.01 K/uL -- Normal range between ( 0.04 and 0.54 ) Bailey %: 7.1 % -- Normal range between ( 4.7 and 12.5 ) Baso %: 0.2 % -- Normal range between ( 0.0 and 1.0 ) Baso #: 0.02 K/uL -- Normal range between ( 0.01 and 0.08 ) RDW: 12.7 % -- Normal range between ( 11.6 and 14.4 ) Neut %: 73.0 % -- Normal range between ( 34.0 and 71.0 ) Neut #: 7.97 K/uL -- Normal range between ( 1.56 and 6.13 ) Lymph %: 19.2 % -- Normal range between ( 19.3 and 53.0 ) Lymph #: 2.10 K/uL -- Normal range between ( 1.18 and 3.74 ) MPV: 10.8 fL -- Normal range between ( 9.4 and 12.4 ) IG#: 0 x10(3)/uL IG%: 0 % -- Normal range between ( 0 and 1 ) Microbiology 12/26/2020 8:30 AM SARS-CoV-2 (COVID19 PCR): Negative General Chemistry 12/29/2020 3:15 AM Creatinine Level: 0.53 mg/dL -- Normal range between ( 0.55 and 1.02 ) Sodium Level: 140 mmol/L -- Normal range between ( 136 and 146 ) Potassium Level: 4.2 mmol/L -- Normal range between ( 3.5 and 5.1 ) Chloride Level: 108 mmol/L -- Normal range between ( 102 and 112 ) Carbon Dioxide Level: 26 mmol/L -- Normal range between ( 21 and 32 ) Anion Gap: 10 -- Normal range between ( 9 and 20 ) Bun/Creatinine: 18.9 -- Normal range between ( 8.0 and 20.0 ) Calcium Level: 8.4 mg/dL -- Normal range between ( 8.5 and 10.1 ) eGFR : >60 mL/min/1.73m2 eGFR NonAfrican: >60 mL/min/1.73m2 Glucose Level: 74 mg/dL -- Normal range between ( 74 and 106 ) Blood Urea Nitrogen: 10 mg/dL -- Normal range between ( 7 and 22 ) Endocrinology 12/28/2020 6:40 AM HCG Urine Qualitative: Negative Patient Name:KARI GARCIA I have received and understand this information and was given the opportunity to ask questions. Patient/Associate Software Developer Name: Patient/Associate Software Developer Signature: Relationship to Patient: Clinician/Hospital Associate Software Developer Signature: Date: documented in this encounter Plan of Treatment Not on file documented as of this encounter Visit Diagnoses Not on filedocumented in this encounter
--- OUTSIDE RECORDS SUMMARY | 2025-04-02 14:47 | XMS_ITS | Encounter Summary ---
Author Organization [employer] ([place], [place], [place], [place]) Address [address] [place] [address] Care Team Providers Care Reproductive Surgeon Name Role Phone Unavailable Primary Care Provider Unavailabl e Encounter Details Date Type Department Care Team (Late st Contact Info) Description 01/02/2021 Transcribed Document [facility] [place] [facility] [place] [address] ProviderJonatan MD [facility], [place] [id number] Social History Tobacco Use Types Packs/Day Years Used Date Smoking Tobacco: Never Assessed Comments Unknown Sex and Gender Information Value Date Recorded Sex Assigned at Female 12/25/2021 6:38 PM CDT Legal Sex Female 6:38 PM CDT Gender Identity Female 12/25/2021 6:38 PM CDT Sexual Orientation Not on file documented as of this encounter Miscellaneous Notes * Cerner Conversion Note - Jonatan ProviderMD - 01/02/2021 10:58 AM CDT Patient: KARI GARCIA Age: 30 Years Sex: Female : 1990 Admit Date 12/28/2020 05:12 Discharge Date 12/29/2020 13:13 Primary Care Provider PHY, UNKNOWN Discharge diagnosis Morbid obesity Secondary discharge diagnoses Polycystic ovarian syndrome History of endometriosis Procedures SN - Proc - Procedure: Gastric Bypass Jimena-en-y Laparoscopic (12/28/20 08:06:24) Reason for Hospitalization Patient is 30-year-old female who was seen and evaluated by Dr. Menard in the bariatric office. Following his evaluation as well as attendance of bariatric seminars the patient was felt to be a good candidate for surgical intervention. Please see Dr. Menard's office history and physical examination for further details. Hospital Course On the day of admission the patient was taken the operating room by Dr. Menard where she underwent surgical procedure listed above. This procedure was tolerated by the patient without any complications. Postoperatively the patient was taken the recovery room followed by admission to the medical surgical floor. On the first postoperative day patient was afebrile her vital signs were stable. She was tolerating her bariatric stage I liquid diet without any nausea or vomiting. She was ambulating in the halls without difficulty. Her postsurgical pain was minimal and well controlled. On this day following evaluation by Dr Menard the patient was stable for discharge home. Discharge Disposition Home Discharge Follow Up EMIL MENARD MD - 08:30 AM Discharge Medications (7) Active cyclobenzaprine 10 mg, PRN, Oral, At Bedtime oxyCODONE 5 mg oral tablet 5 mg = 1 Tab, PRN, Oral, Q6H PriLOSEC 20 mg oral delayed release capsule 20 mg = 1 Cap, Oral, Daily Trintellix 20 mg oral tablet 20 mg = 1 Tab, Oral, At Bedtime Xanax 0.25 mg, PRN, Oral, Q8H Xyzal 5 mg, Oral, QPM Zofran 4 mg oral tablet 4 mg = 1 Tab, PRN, Oral, Q8H Code Status No Code Status Order on Record Condition on Discharge Stable Consulting Physicians DAVID MUIR MD Patient Discharge Summary Orders Discharge Follow Up Instructions: call office on friday for followup appointment Follow Up Instructions: followup next weekCall for [id number] Activity: Discharge Activity: No heavy lifting over 10 lbs Diet: Warm liquids in the morning. May progress to full liquids and soft high protein foods as tolerated (Cottage cheese, chicken salad, eggs, etc). Make sure foods are wet . Drink 64 oz of fluids per day. Refer to Álvaro-handbook., Discharge Diet: Other (see Special Instructions) [1] [1] Inpatient Discharge Instructions; BAMBI GAGE RN 12/29/2020 12:21 EDT documented in this encounter Plan of Treatment Not on file documented as of this encounter Visit Diagnoses Not on filedocumented in this encounter
--- OUTSIDE RECORDS SUMMARY | 2025-04-02 14:47 | XMS_ITS | Encounter Summary ---
Author Organization [employer] ([place], [place], [place], [place]) Address [address] [place] [address] Care Team Providers Care [place] Pilot Name Role Phone Unavailable Primary Care Provider Unavailabl e Encounter Details Date Type Department Care Team (Late st Contact Info) Description 07/07/2020 Transcribed Document [facility] [place] [address] [place] [address] ProviderJonatan MD [address] [place] [address] Social History Tobacco Use Types [...] Cerner Conversion Note - Jonatan ProviderMD - 07/07/2020 3:14 PM [employer] [facility] PACU Summary Primary Physician: EMIL MENARD MD Finalized Date/Time: 07/07/20 15:47:35 Pt. Name: KARI GARCIA /Sex: 1990 Female Med Rec #: [id number] Physician: EMIL MENARD MD Financial #: [id number] Pt. Type: E Room/Bed: [facility] Admit/Disch: 07/07/20 10:44:00 - Institution: [facility] PACU Case Times Entry 1 In PACU I 07/07/20 15:21:00 Ready for PACU 07/07/20 15:44:00 Discharge Discharge from PACU 07/07/20 15:47:00 [employer] [facility] PACU Case Times Audit 07/07/20 15:47:33 Ditch Cleaner: BIANCA Modifier: BIANCA <+> 1 Ready for PACU Discharge <+> 1 Discharge from PACU I Finalized By: DENICE Candelario RN Document Signatures Signed By: DENICE Candelario RN 07/07/20 15:47 documented in this encounter Plan of Treatment Not on file documented as of this encounter Visit Diagnoses Not on filedocumented in this encounter
--- OUTSIDE RECORDS SUMMARY | 2025-04-02 14:47 | XMS_ITS | Encounter Summary ---
Author Organization [employer] ([place], [place], [place], [place]) Address [address] [place] [address] Care Team Providers Care Optical Manager Name Role Phone Unavailable Primary Care Provider Unavailabl e Encounter Details Date Type Department Care Team (Late st Contact Info) Description 12/29/2020 Transcribed Document [facility] [place] Family Medicine [facility] [place] [address] ProviderJonatan MD [address], [place] [id number] Social History Tobacco Use Types Packs/Day Years [...] Conversion Note - Jonatan ProviderMD - 12/29/2020 8:42 AM CDT UM Authorization Entered On: 12/29/2020 8:45 EDT Performed On: 12/29/2020 8:42 EDT by JAZLYN AGUILAR RN-Utilization Review Primary Insurance Authorization Authorization and Policy Numbers : Insurance 1 Health Plan: [employer] Policy Number: [id number] Authorization Number: [id number] Insurance Primary Name : [employer] Policy Number: [id number] Authorization Status-Primary : Admit approved Reference Number-Primary : [id number] Authorization Number-Primary : [id number] Number of Days Authorized-Primary : 0 Day(s) Authorized Service Begin Date-Primary : 12/28/2020 EDT Authorized Service End Date-Primary : 12/28/2020 EDT Authorization Comments-Primary : Uploaded cont stay clinicals (12/29/20) to Wm via [employer]. Historical Authorization Comments-Primary : Comment 1: Wm approved per Star note for inpt 1 day (GIFTY CANTU, RN-Utilization Review 12/27/2020 10:02) JAZLYN AGUILAR RN-Utilization Review - 12/29/2020 8:42 EDT Electronically signed by Dee [facility] Conversion Metal Inspector Cerner at 10/15/2022 12:13 PM CDT documented in this encounter Plan of Treatment Not on file documented as of this encounter Visit Diagnoses Not on filedocumented in this encounter
--- OUTSIDE RECORDS SUMMARY | 2025-04-02 14:47 | XMS_ITS | Encounter Summary ---
Author Organization [employer] ([place], [place], [place], [place]) Address [address] [place] [address] Care Team Providers Care Sheet Writer Name Role Phone Unavailable Primary Care Provider Unavailabl e Encounter Details Date Type Department Care Team (Late st Contact Info) Description 07/07/2020 Transcribed Document [facility] [place] Family Medicine [address] [place] [address] ProviderJonatan MD [address] [place] [address] Social History Tobacco Use Types [...] Conversion Note - Jonatan ProviderMD - 07/07/2020 3:25 PM SURVEY RESEARCH ANALYST [address] [address] RADHA KARI SCOTT :1990 Visit Time:07/07/2020 What to do next Your Diagnosis Gastro-esophageal reflux disease without esophagitis, Gastro-esophageal reflux disease without esophagitis Instructions From Your Care Team Diet after Discharge: Resume usual diet as tolerated, Do not drink any alcoholic beverages, Activity after Discharge: Rest and relax today, No strenuous activity Driving after Discharge: Do not drive for 24 hours May Return to Work/School: Tomorrow Showering/Bathing: May shower Notify Provider of: with any questions or concerns Follow-Up Appointments Follow Up with EMIL MENARD MD When Within As needed, only if needed Where: [address] [facility] [address] [place] [address]- x8 Medications What How Much When Instructions Next Dose ALPRAZolam (Xanax) 0.25 Milligram(s) Oral As needed for as needed for anxiety cyclobenzaprine 10 Milligram(s) Oral As needed for Pain levocetirizine (Xyzal) 5 Milligram(s) Oral Every Evening Take your medications faithfully. Do NOT skip [...] Please dispose of unused and medications per pharmacy guidance. Education Materials ESOPHAGOGASTRODUODENOSCOPY Care After Read the instructions outlined below and refer to this sheet over the next few days. These discharge instructions provide you with general information on caring for yourself after you leave the hospital. Your doctor may also give you specific instructions. While your treatment has been planned according to the most current medical practices available, unavoidable complications occasionally occur. If you have any problems or questions after discharge, call your doctor. HOME CARE INSTRUCTIONS: ACTIVITY: ??? You may resume your regular activity tomorrow, but move at a slower pace for the next 24 hours. ??? Take frequent rest periods for the next 24 hours. ??? Walking will help get rid of the air and reduce the bloated feeling in your belly (abdomen). ??? No driving for 24 hours because of the medication (sedation) used during the test. ??? You may shower. ??? Do not sign any important legal documents or operate any machinery for 24 hours (because of the sedation used during the test). NUTRITION: ??? Drink plenty of fluids. ??? You may resume your normal diet or as instructed by your doctor ??? Begin with a light meal and progress to your normal diet. Heavy or fried foods are harder to digest and may make you feel sick to your stomach (nauseated). ??? Avoid alcoholic beverages for 24 hours or as instructed. MEDICATIONS: ??? You may resume your normal medications unless your doctor tells you otherwise. WHAT TO EXPECT TODAY: ??? Some feelings of bloating in the abdomen. ??? Excessive burping today and passage of more gas than usual. ??? A sore throat can be normal. Use throat lozenges or gargle with warm salt water and drink plenty of fluids. FINDING OUT THE RESULTS OF YOUR TEST: ??? Not all test results are available during your visit. If you had biopsies or other tests done during your procedure, you can make an appointment with your doctor to get the results. Sometimes you may be instructed to call the doctor???s office for your results. It is important for you to follow up on all of your test results. SEEK IMMEDIATE MEDICAL CARE IF: ??? You cannot eat or drink. ??? You have worsening throat or chest pain. ??? You have dizziness, lightheadedness, or you faint. ??? You have severe nausea or vomiting. ??? You have a fever greater than 101. ??? You have chills. ??? You have severe abdominal pain or discomfort that gets worse throughout the day. ??? You have black, tarry, or bloody stools. Gastric Polyps A gastric polyp, also called a stomach polyp, is a growth on the lining of the stomach. Most polyps are not dangerous, but some can be harmful because of their size, location, or type. Polyps that can become harmful include: ??? Large polyps. These can turn into sores (ulcers). Ulcers can lead to stomach bleeding. ??? Polyps that block food from moving from the stomach to the small intestine (gastric outlet obstruction). ??? A type of polyp called an adenoma. This type of polyp can become cancerous. What are the causes? Gastric polyps form when the lining of the stomach gets inflamed or damaged. Stomach inflammation and damage may be caused by: ??? A long-lasting stomach condition, such as gastritis. ??? Certain medicines used to reduce stomach acid. ??? An inherited condition called familial adenomatous polyposis. What are the signs or symptoms? Usually, this condition does not cause any symptoms. If you do have symptoms, they may include: ??? Pain or tenderness in the abdomen. ??? Nausea. ??? Trouble eating or swallowing. ??? Blood in the stool. ??? Anemia. How is this diagnosed? Gastric polyps are diagnosed with: ??? A medical procedure called endoscopy. ??? A lab test in which a part of the polyp is examined. This test is done with a sample of polyp tissue (biopsy) taken during an endoscopy. How is this treated? Treatment depends on the type, location, and size of the polyps. Treatment may involve: ??? Having the polyps checked regularly with an endoscopy. ??? Having the polyps removed with an endoscopy. This may be done if the polyps are harmful or can become harmful. Removing a polyp often prevents problems from developing. ??? Having the polyps removed with a surgery called a partial gastrectomy. This may be done in rare cases to remove very large polyps. ??? Treating the underlying condition that caused the polyps. Follow these instructions at home: ??? Take xtvw-ivn-yazbktu and prescription medicines only as told by your health care provider. ??? Keep all follow-up visits as told by your health care provider. This is important. Contact a health care provider if: ??? You develop new symptoms. ??? Your symptoms get worse. Get help right away if: ??? You vomit blood. ??? You have severe abdominal pain. ??? You cannot eat or drink. ??? You have blood in your stool. This information is not intended to replace advice given to you by your health care provider. Make sure you discuss any questions you have with your health care provider. Document Released: 06/02/2013 Document Revised: 05/29/2018 Document Reviewed: 06/30/2016 [employer] Patient Education ?? 2020 [employer] Hiatal Hernia A hiatal hernia occurs when part of the stomach slides above the muscle that separates the abdomen from the chest (diaphragm). A person can be born with a hiatal hernia (congenital), or it may develop over time. In almost all cases of hiatal hernia, only the top part of the stomach pushes through the diaphragm. Many people have a hiatal hernia with no symptoms. The larger the hernia, the more likely it is that you will have symptoms. In some cases, a hiatal hernia allows stomach acid to flow back into the tube that carries food from your mouth to your stomach (esophagus). This may cause heartburn symptoms. Severe heartburn symptoms may mean that you have developed a condition called gastroesophageal reflux disease (GERD). What are the causes? This condition is caused by a weakness in the opening (hiatus) where the esophagus passes through the diaphragm to attach to the upper part of the stomach. A person may be born with a weakness in the hiatus, or a weakness can develop over time. What increases the risk? This condition is more likely to develop in: ??? Older people. Age is a major risk factor for a hiatal hernia, especially if you are over the age of 50. ??? women. ??? People who are overweight. ??? People who have frequent constipation. What are the signs or symptoms? Symptoms of this condition usually develop in the form of GERD symptoms. Symptoms include: ??? Heartburn. ??? Belching. ??? Indigestion. ??? Trouble swallowing. ??? Coughing or wheezing. ??? Sore throat. ??? Hoarseness. ??? Chest pain. ??? Nausea and vomiting. How is this diagnosed? This condition may be diagnosed during testing for GERD. Tests that may be done include: ??? X-rays of your stomach or chest. ??? An upper gastrointestinal (GI) series. This is an X-ray exam of your GI tract that is taken after you swallow a chalky liquid that shows up clearly on the X-ray. ??? Endoscopy. This is a procedure to look into your stomach using a thin, flexible tube that has a tiny camera and light on the end of it. How is this treated? This condition may be treated by: ??? Dietary and lifestyle changes to help reduce GERD symptoms. ??? Medicines. These may include: ? Vujw-fsb-gyanlok antacids. ? Medicines that make your stomach empty more quickly. ? Medicines that block the production of stomach acid (H2 blockers). ? Stronger medicines to reduce stomach acid (proton pump inhibitors). ??? Surgery to repair the hernia, if other treatments are not helping. If you have no symptoms, you may not need treatment. Follow these instructions at home: Lifestyle and activity ??? Do not use any products that contain nicotine or tobacco, such as cigarettes and e-cigarettes. If you need help quitting, ask your health care provider. ??? Try to achieve and maintain a healthy body weight. ??? Avoid putting pressure on your abdomen. Anything that puts pressure on your abdomen increases the amount of acid that may be pushed up into your esophagus. ? Avoid bending over, especially after eating. ? Raise the head of your bed by putting blocks under the legs. This keeps your head and esophagus higher than your stomach. ? Do not wear tight clothing around your chest or stomach. ? Try not to strain when having a bowel movement, when urinating, or when lifting heavy objects. Eating and drinking ??? Avoid foods that can worsen GERD symptoms. These may include: ? Fatty foods, like fried foods. ? Lynndyl fruits, like oranges or lemon. ? Other foods and drinks that contain acid, like orange juice or tomatoes. ? Spicy food. ? Chocolate. ??? Eat frequent small meals instead of three large meals a day. This helps prevent your stomach from getting too full. ? Eat slowly. ? Do not lie down right after eating. ? Do not eat 1???2 hours before bed. ??? Do not drink beverages with caffeine. These include cola, coffee, cocoa, and tea. ??? Do not drink alcohol. General instructions ??? Take owks-aqc-vqvoxmg and prescription medicines only as told by your health care provider. ??? Keep all follow-up visits as told by your health care provider. This is important. Contact a health care provider if: ??? Your symptoms are not controlled with medicines or lifestyle changes. ??? You are having trouble swallowing. ??? You have coughing or wheezing that will not go away. Get help right away if: ??? Your pain is getting worse. ??? Your pain spreads to your arms, neck, jaw, teeth, or back. ??? You have shortness of breath. ??? You sweat for no reason. ??? You feel sick to your stomach (nauseous) or you vomit. ??? You vomit blood. ??? You have bright red blood in your stools. ??? You have black, tarry stools. This information is not intended to replace advice given to you by your health care provider. Make sure you discuss any questions you have with your health care provider. Document Released: 09/05/2004 Document Revised: 05/29/2018 Document Reviewed: 01/19/2018 [employer] Patient Education ?? 2020 [employer]. Monitored Anesthesia Care, Care After These instructions provide you with information about caring for yourself after your procedure. Your health care provider may also give you more specific instructions. Your treatment has been planned according to current medical practices, but problems sometimes occur. Call your health care provider if you have any problems or questions after your procedure. What can I expect after the procedure? After your procedure, you may: ??? Feel sleepy for several hours. ??? Feel clumsy and have poor balance for several hours. ??? Feel forgetful about what happened after the procedure. ??? Have poor judgment for several hours. ??? Feel nauseous or vomit. ??? Have a sore throat if you had a breathing tube during the procedure. Follow these instructions at home: For at least 24 hours after the procedure: ??? Have a responsible adult stay with you. It is important to have someone help care for you until you are awake and alert. ??? Rest as needed. ??? Do not: ? Participate in activities in which you could fall or become injured. ? Drive. ? Use heavy machinery. ? Drink alcohol. ? Take sleeping pills or medicines that cause drowsiness. ? Make important decisions or sign legal documents. ? Take care of children on your own. Eating and drinking ??? Follow the diet that is recommended by your health care provider. ??? If you vomit, drink water, juice, or soup when you can drink without vomiting. ??? Make sure you have little or no nausea before eating solid foods. General instructions ??? Take igqj-wkx-ffwlfpu and prescription medicines only as told by your health care provider. ??? If you have sleep apnea, surgery and certain medicines can increase your risk for breathing problems. Follow instructions from your health care provider about wearing your sleep device: ? Anytime you are sleeping, including during daytime naps. ? While taking prescription pain medicines, sleeping medicines, or medicines that make you drowsy. ??? If you smoke, do not smoke without supervision. ??? Keep all follow-up visits as told by your health care provider. This is important. Contact a health care provider if: ??? You keep feeling nauseous or you keep vomiting. ??? You feel light-headed. ??? You develop a rash. ??? You have a fever. Get help right away if: ??? You have trouble breathing. Summary ??? For several hours after your procedure, you may feel sleepy and have poor judgment. ??? Have a responsible adult stay with you for at least 24 hours or until you are awake and alert. This information is not intended to replace advice given to you by your health care provider. Make sure you discuss any questions you have with your health care provider. Document Released: 10/06/2016 Document Revised: 09/14/2018 Document Reviewed: 10/06/2016 [employer] Patient Education ?? 2020 [employer] Emergency Awareness and Preventative Care STROKE is [...] Assistance with quitting is available by contacting -NOW. This is a free resource providing counseling, support, and referral. Or you may contact your personal physician. National Suicide Prevention Lifeline: The National Suicide Prevention [...] CPR? There are two easy steps: Call if you see a teen or adult [...] This Visit (last charted value for your 07/07/2020 visit) Microbiology 07/04/2020 3:25 PM Novel Coronavirus 2019: Negative Patient Name:KARI GARCIA I have received this information and was given the opportunity to ask questions. Patient/Inspector Outside Production Name: Patient/Inspector Outside Production Signature: Relationship to Patient: Clinician/Hospital Inspector Outside Production Signature: Date: Electronically signed by Interface, [facility] Conversion Soft Iron Inspector Cerner at 10/15/2022 12:23 PM CDT documented in this encounter Plan of Treatment Not on file documented as of this encounter Visit Diagnoses Not on filedocumented in this encounter
--- OUTSIDE RECORDS SUMMARY | 2025-04-02 14:47 | XMS_ITS | Encounter Summary ---
Author Organization [employer] ([place], [place], [place], [place]) Address [address] [place] [address] Care Team Providers Care Sustainable Agriculture Specialist Name Role Phone Unavailable Primary Care Provider Unavailabl e Encounter Details Date Type Department Care Team (Late st Contact Info) Description 12/29/2020 Transcribed Document [facility] [place] [address] [place] [address] ProviderJonatan MD [address], [place] [id number] Social History Tobacco Use Types Packs/Day Years [...] Conversion Note - Historical ProviderMD - 12/29/2020 5:00 AM CDT Chart Check - Review Order Profile Entered On: 12/29/2020 5:28 EDT Performed On: 12/29/2020 5:00 EDT by Wyatt Cruz, RN Chart Check Powerplans Initiated/Discontinued as Appropriate : Yes All Active Orders Reviewed : Yes Wyatt Cruz, RN - 12/29/2020 5:28 EDT documented in this encounter Plan of Treatment Not on file documented as of this encounter Visit Diagnoses Not on filedocumented in this encounter
--- OUTSIDE RECORDS SUMMARY | 2025-04-02 14:47 | XMS_ITS | Encounter Summary ---
Author Organization [employer] ([place], [place], [place], [place]) Address [address] [place] [address] Care Team Providers Care Field Crop Farmer Name Role Phone Unavailable Primary Care Provider Unavailabl e Encounter Details Date Type Department Care Team (Late st Contact Info) Description 12/28/2020 Transcribed Document [facility] [place] Family Medicine [address] [place] [address] ProviderJonatan MD [address] [place] [address] Social History Tobacco Use Types [...] Conversion Note - Jonatan ProviderMD - 12/28/2020 10:36 AM CDT Pain Assessment Entered On: 12/28/2020 16:06 EDT Performed On: 12/28/2020 15:56 EDT by Ayana Cadena RN Intervention Information: [email or web address] Performed by Ayana Cadena RN on 12/28/2020 15:26:00 EDT fentaNYL,50mcg IV Push,Peripheral Line 1,Pain (Moderate 4-6) Pain Assessment Pain Assessment : Follow-up assessment Pain Scale Goal : 3 Pain Scale Used : 0-10 Scale Ayana Cadena RN - 12/28/2020 16:05 EDT Pain Scale Intensity : 6 Ayana Cadena RN - 12/28/2020 16:05 EDT Image 4 - Images currently included in the form version of this document have not been included in the text rendition version of the form. Electronically signed by Jose Cruz [employer] Conversion Plastic Block Boiler Reliner Cerner at 10/15/2022 12:29 PM CDT documented in this encounter Plan of Treatment Not on file documented as of this encounter Visit Diagnoses Not on filedocumented in this encounter
--- OUTSIDE RECORDS SUMMARY | 2025-04-02 14:47 | XMS_ITS | Clinical Summary ---
Author Organization [facility] Address [address] [place] [address] Care Team Providers Care Cardiac Catheterization Technician Name Role Phone Janeth Flores APRN Primary Care Provider [phone] Allergies Active Allergy Reactions Criticality Noted Date Comments Amoxicillin Unknown - Patient st ates they do not know rxn details Low 09/13/2019 Piperacillin Sod-Tazobactam So Unknown - Patient states they do not know rxn details Low 09/13/2019 Medications Multiple Vitamin (multivitamin) tablet Take 1 tablet by mouth 1 (one) time each day. Active Calcium Carb-Cholecalcifer ol (CALCIUM 1000 + D PO) Take by mouth. Activ e levonorgestrel (Mirena) 20 MCG/24HR IUD 1 each by Intrauterine route 1 (one) time. Active cyclobenzaprine (Flexeril) 10 MG tablet Take 1 tablet (10 mg) by mouth in the morning and 1 tablet (10 mg) in the evening and 1 tablet (10 mg) before bedtime. 06/04/20 24 Active dexmethylphenidate (Focalin) 10 MG tablet Take 1 tablet (10 mg) by mouth in the evening. 08/02/19 25 Active ondansetron ODT (Zofran-ODT) 4 MG disintegrating tablet Take 1 tablet (4 mg) by mouth every 8 hours as needed for vomiting or nausea. 08/16/19 25 Active Azstarys 52.3-10.4 MG capsule Take 52.3 mg by mouth daily. 09/02/19 25 Active Active Problems Problem Noted Date Diagnosed Date Encounter for gynecological examination without abnormal finding 04/25/2021 IUD check up 04/25/2021 Encounter for IUD removal and reinsertion 2020 Depression 09/13/2019 Immunizations Immunization Administration Dates Next Due Influenza, injectable, quadrivalent 03/28/2021,0 10/09/2018 Influenza, injectable, quadrivalent, preservativ e free 05/02/2023,03/22/2020 Varicella 12/24/2018,10/29/2018 Family History Medical History Relation Name Comments Hypertension Father Colon cancer Mother Hypertension Mother Relation Name Status Comments Father Mother Social History Tobacco Use Types Packs/Day Years Used Date Smoking Tobacco: Never Smokeless Tobacco: Never Humiliation, Afraid, Rape, and Kick questionnair e Answer Date Recorded Within the last year, have y ou been afraid of your partner or ex-partner? No 09/08/2024 Within the last year, have y ou been humiliated or emotionally abused in other ways by your partner or ex-partner? No Within the last year, have y ou been kicked, hit, slapped, or otherwise physically hurt by your partner or ex-partner? No 09/08/2024 Within the last year, have y ou been raped or forced to have any kind of sexual activity by your partner or ex-partner? No 09/08/2024 Social Connection and Isolation Panel Answer Date Recorded In a typical week, how many times do you talk on the phone with family, friends, or neighbors? More than three times a week 09/08/2024 How often do you get togethe r with friends or relatives? Twice a week 09/08/2024 How often do you attend [facility] or taoism services? 1 to 4 times per year 09/08/2024 Do you belong to any clubs o r organizations such as cheondoism groups, unions, fraternal or athletic groups, or school groups? No 09/08/2024 How often do you attend meet ings of the clubs or organizations you belong to? Never 09/08/2024 Are you , , di vorced, , never , or living with a partner? 09/08/2024 AUDIT-C Answer Date Recorded Q1: How often do you have a drink containing alcohol? Never 09/08/2024 Q2: How many drinks containi ng alcohol do you have on a typical day when you are drinking? Patient does not drink Q3: How often do you have si x or more drinks on one occasion? Never 09/08/2024 Overall Financial Resource Strain (CARDIA) Answe r Date Recorded How hard is it for you to pa y for the very basics like food, housing, medical care, and heating? Not hard at all 09/08/2024 PHQ-2 Answer Date Recorded Patient Health Questionnaire-2 Score 0 09/08/2024 [facility] - Occupational Stress Questionnaire Answer Date Recorded Do you feel stress - tense, restless, nervous, or anxious, or unable to sleep at night because your mind is troubled all the time - these days? Not at all 09/08/2024 Exercise Vital Sign Answer Date Recorde d On average, how many days pe r week do you engage in moderate to strenuous exercise (like a brisk walk)? 2 days 09/08/2024 On average, how many minutes do you engage in exercise at this level? 40 min 09/08/2024 Hunger Vital Sign Answer Date Recorded Within the past 12 months, y ou worried that your food would run out before you got the money to buy more. Never true 09/09/19 25 Within the past 12 months, t he food you bought just didn't last and you didn't have money to get more. Never true 09/08/2024 [facility] - Transportation Answer Date Re corded In the past 12 months, has l ack of transportation kept you from medical appointments or from getting medications? No 08/28 In the past 12 months, has l ack of transportation kept you from meetings, work, or from getting things needed for daily living? No 09/08/2024 Housing Stability Vital Sign Answer Too e Recorded In the last 12 months, was t here a time when you were not able to pay the mortgage or rent on time? No 09/08/2024 In the past 12 months, how m any times have you moved where you were living? 0 09/08/2024 At any time in the past 12 m [facility], were you homeless or living in a long term (including now)? No 09/08/2024 Utilities Answer Date Recorded In the past 12 months has th e electric, gas, oil, or water company threatened to shut off services in your home? No 09/08/2024 Comments No Sex and Gender Information Value Date Recorded Sex Assigned at Female 07/30/2024 2:45 PM EST Legal Sex Female 8:58 PM EDT Gender Identity Female 07/30/2024 2:45 PM EST Sexual Orientation Not on file Last Filed Vital Signs Vital Sign Reading Time Taken Comments Blood Pressure 132/87 09/08/2024 10:[address] Echevarria about the lower 2nd BP Pulse 71 09/08/2024 10:49 AM EDT Temperature 37.1 C (98.8 F) 09/08/2024 10:27 AM EDT Respiratory Rate - - Oxygen Saturation 100% 09/08/2024 10: 27 AM EDT Inhaled Oxygen Concentration - - Weight 92.2 kg (203 lb 4.2 oz) 09/08/2024 10:27 AM EDT Height 170.2 cm (5' 7 ) 09/08/2024 10:2 7 AM EDT Body Mass Index 31.84 09/08/2024 10:27 AM EDT Plan of Treatment Health Maintenance Due Date Last Done Comments [facility]-Depression Screening 1990 [facility]-/Child/Adol SDOH Screenings 1990 [facility]- SDOH Screenings 2007 [facility]-Adult SDOH Screenings 2007 [facility]-DTaP,Tdap,and Td Vaccines (1 - Tdap) 2008 [facility]-Hepatitis B Vaccines (1 of 3 - 19+ 3-dose series) 2008 [facility]-Pap Smear 2010 HPV Vaccines (1 - 3-dose SCDM series) 2016 [facility]-Cervical Cancer Screening 2019 [facility]-HPV/Cotest 2019 [id number]-KTNAH-86 Vaccine ( season) 2025 05/18/2021, 08/08/2020, 07/11/2020 [facility]-Influenza Vaccine (#1) 02/28/202505/02, 03/28/2021, 03/22/2020, Additional history exists [facility]-Zoster Vaccines (1 of 2) 2039 12/24/2018, 10/29/2018 [facility]-Varicella Vaccines Completed 12/24/2018, 2018 [facility]-HIB Vaccines Aged Out No longer e ligible based on patient's age to complete this topic [facility]-Hepatitis A Vaccines Aged Out No longer eligible based on patient's age to complete this topic [facility]-IPV Vaccines Aged Out No longer e ligible based on patient's age to complete this topic [facility]-Pneumococcal Vaccine: Pediatrics (0 to 5 Years) and At-Risk Patients (6 to 49 Years) Aged Out No longer eligible based on patient's age to complete this topic [facility]-Rotavirus Vaccines Aged Out No lo nger eligible based on patient's age to complete this topic Insurance [employer] Care Teams Cardiac Catheterization Technician Relationship Specialty Start Date End Date Janeth Flores APRN [address] [place] [id number] PCP - General 08/23/24
--- OUTSIDE RECORDS SUMMARY | 2025-04-02 14:47 | XMS_ITS | Encounter Summary ---
Author Organization [employer] ([place], [place], [place], [place]) Address [address] [place] [address] Care Team Providers Care Hide Mill Worker Name Role Phone Unavailable Primary Care Provider Unavailabl e Encounter Details Date Type Department Care Team (Late st Contact Info) Description 12/28/2020 Transcribed Document [facility] [place] Family Medicine [address] [place] [address] ProviderJonatan MD [address] [place] [address] Social History Tobacco Use Types [...] 12/28/2020 7:56 AM CDT E Main OR PACU Summary Primary Physician: EMIL MENARD MD Finalized Date/Time: 12/28/20 16:58:55 Pt. Name: KARI GARCIA /Sex: 1990 Female Med Rec #: [id number] Physician: EMIL MENARD MD Financial #: [id number] Pt. Type: I Room/Bed: [facility]/1 Admit/Disch: 12/28/20 05:12:00 - Institution: [facility] Main OR PACU Case Times Entry 1 In PACU I 12/28/20 10:00:00 Ready for PACU 12/28/20 10:30:00 Discharge Discharge from PACU 12/28/20 16:35:00 I Last Modified By: DARRELL Mcfadden 12/28/20 12:00:14 [facility] Main OR PACU Case Times Audit 12/28/20 16:56:12 Fashion Artist: MORRIS Modifier: RICK <+> 1 Discharge from PACU I [facility] Main OR PACU Acuity Entry 1 Start Time 12/28/20 10:31:00 Stop Time 12/28/20 16:35:00 Acuity Level [facility] PACU Acuity I Last Modified By: Ayana Cadena RN 12/28/20 16:58:54 Finalized By: Ayana Cadena, RN Document Signatures Signed By: Ayana Cadena RN 12/28/20 16:58 Electronically signed by Dee [facility] Conversion Veneer Grader Cerner at 10/15/2022 12:38 PM CDT documented in this encounter Plan of Treatment Not on file documented as of this encounter Visit Diagnoses Not on filedocumented in this encounter
--- OUTSIDE RECORDS SUMMARY | 2025-04-02 14:47 | XMS_ITS | Encounter Summary ---
Author Organization [employer] ([place], [place], [place], [place]) Address [address] [place] [address] Care Team Providers Care Biofuels Plant Operations Engineer Name Role Phone Unavailable Primary Care Provider Unavailabl e Encounter Details Date Type Department Care Team (Late st Contact Info) Description 12/29/2020 Transcribed Document [facility] [place] Family Medicine [facility] [place] [address] ProviderJonatan MD [address] [place] [address] Social History Tobacco Use Types [...] Conversion Note - Jonatan ProviderMD - 12/29/2020 12:00 AM CDT Pain Assessment Entered On: 12/29/2020 5:27 EDT Performed On: 12/29/2020 0:39 EDT by Wyatt Cruz RN Intervention Information: ketorolac Performed by Wyatt Cruz RN on 12/29/2020 00:09:00 EDT ketorolac,15mg IV Push,Peripheral Line 1 Pain Assessment Pain Assessment : Follow-up assessment Pain Scale Goal : 3 Pain Scale Used : 0-10 Scale Wyatt Cruz RN - 12/29/2020 5:27 EDT Pain Scale Intensity : 2 Wyatt Cruz RN - 12/29/2020 5:27 EDT Image 4 - Images currently included in the form version of this document have not been included in the text rendition version of the form. documented in this encounter Plan of Treatment Not on file documented as of this encounter Visit Diagnoses Not on filedocumented in this encounter
--- OUTSIDE RECORDS SUMMARY | 2025-04-02 14:47 | XMS_ITS | Encounter Summary ---
Author Organization [employer] ([place], [place], [place], [place]) Address [address] [place] [address] Care Team Providers Care Bottler Name Role Phone Unavailable Primary Care Provider Unavailabl e Encounter Details Date Type Department Care Team (Late st Contact Info) Description 12/28/2020 Transcribed Document [facility] [place] Family Medicine [address] [place] [address] ProviderJonatan MD [address] [place] [address] Social History Tobacco Use Types [...] Conversion Note - Jonatan ProviderMD - 12/28/2020 6:32 PM CDT Pain Assessment Entered On: 12/29/2020 5:28 EDT Performed On: 12/29/2020 4:28 EDT by Wyatt Cruz RN Intervention Information: acetaminophen-HYDROcodone Performed by Wyatt Cruz RN on 12/29/2020 03:28:00 EDT acetaminophen-HYDROcodone,1Tab Oral,Pain (Moderate 4-6) Pain Assessment Pain Assessment : [...] Electronically signed by Jose Cruz Price Conversion Cost And Sales Record Supervisor Cerner at 10/15/2022 12:30 PM CDT documented in this encounter Plan of Treatment Not on file documented as of this encounter Visit Diagnoses Not on filedocumented in this encounter
--- OUTSIDE RECORDS SUMMARY | 2025-04-02 14:47 | XMS_ITS | Encounter Summary ---
Author Organization [employer] ([place], [place], [place], [place]) Address [address] [place] [address] Care Team Providers Care Geophysical Laboratory Supervisor Name Role Phone Unavailable Primary Care Provider Unavailabl e Encounter Details Date Type Department Care Team (Late st Contact Info) Description 07/07/2020 Transcribed Document [facility] [place] [address] [place] [address] ProviderJonatan MD [address] [place] [address] Social History Tobacco Use Types [...] Conversion Note - Jonatan ProviderMD - 07/07/2020 12:45 PM GOLF CADDY [facility] PreOp Summary Primary Physician: MUKUND NOVAK MD-[facility] Finalized Date/Time: 07/07/20 11:53:50 Pt. Name: RADHA KARI SONIA /Sex: 1990 Female Med Rec #: [id number] Physician: EMIL MENARD MD Financial #: [id number] Pt. Type: E Room/Bed: N/5 Admit/Disch: 07/07/20 10:44:00 - Institution: [facility] PreOp Case Times Entry 1 In Preop 07/07/20 11:39:00 Ready for Holding n/a Room Patient Ready for 07/07/20 11:53:00 Surgery Patient Out of Preop 07/07/20 11:53:00 Patient Out of n/a Holding Room [facility] PreOp Case Times Audit 07/07/20 11:53:50 Slider Assembler: BIANCA Modifier: BIANCA <+> 1 Patient Out of Preop <+> 1 Patient Ready for Surgery Finalized By: DENICE Candelario RN Document Signatures Signed By: DENICE Candelario RN 07/07/20 11:53 Electronically signed by Dee [facility] Conversion Maturity Checker Cerner at 10/15/2022 12:16 PM CDT documented in this encounter Plan of Treatment Not on file documented as of this encounter Visit Diagnoses Not on filedocumented in this encounter
--- OUTSIDE RECORDS SUMMARY | 2025-04-02 14:47 | XMS_ITS | Encounter Summary ---
Author Organization [employer] ([place], [place], [place], [place]) Address [address] [place] [address] Care Team Providers Care Hand Brim Ironer Name Role Phone Unavailable Primary Care Provider Unavailabl e Encounter Details Date Type Department Care Team (Late st Contact Info) Description 12/28/2020 Transcribed Document [facility] [place] Family Medicine [facility] [place] [address] ProviderJonatan MD [address] [place] [address] Social History Tobacco Use Types [...] Cerner Conversion Note - Historical ProviderMD - 12/28/2020 7:39 AM CDT Nutrition Assessment Entered On: 12/29/2020 7:40 EDT Performed On: 12/29/2020 7:[address]ia Brooks [address], HENRRY Nutrition Assessment Nutrition Assessment Reason : Automatic referral Natalia Brooks RD, HENRRY - 12/29/2020 7:40 EDT Nutrition Recommendations Dietitian Recommendations : (12/29) Consult rec'd for BMI>40. Pt admitted s/p lap mark-en-y. RD to sign off. Please reconsult prn if clinical RD is needed. Natalia Brooks RD, LD - 12/29/2020 7:40 EDT documented in this encounter Plan of Treatment Not on file documented as of this encounter Visit Diagnoses Not on filedocumented in this encounter
--- OUTSIDE RECORDS SUMMARY | 2025-04-02 14:47 | XMS_ITS | Encounter Summary ---
Author Organization [employer] ([place], [place], [place], [place]) Address [address] [place] [address] Care Team Providers Care French Drawer Name Role Phone Unavailable Primary Care Provider Unavailabl e Encounter Details Date Type Department Care Team (Late st Contact Info) Description 12/29/2020 Transcribed Document [facility] [place] Family Medicine [facility] [place] [address] ProviderJonatan MD [address] [place] [address] Social History Tobacco Use Types Packs/Day [...] Conversion Note - Jonatan ProviderMD - 12/29/2020 9:03 AM CDT On Going Discharge Planning Entered On: 12/29/2020 9:04 EDT Performed On: 12/29/2020 9:03 EDT by Yesenia Pandya, Linda Care Management Progress Note Discharge Arrangements : Patient Post-Acute Information Patient Name: KARI GARCIA Gender: Female : [birth year] Age: 30 Years No Post-Acute Placement(s) Listed No Post-Acute Service(s) Listed No [place] Referral(s) Listed Discharge Options Discussed with Patient : Discharge transportation, DME, Home Health Barriers to Discharge Identified : Clinical Condition of Patient Barriers to Discharge Unresolved : Clinical Condition of Patient Designation of Choice Signed : No Patient Offered Choice/Affiliations Explained : No Were Referrals Sent to Post Acute Providers : No Does the Patient have a Floor to SNF Benefit? : No Is the Patient Meeting Medical Necessity : Yes Did you Attend Multidisciplinary Rounds? : Yes Yesenia Pandya Rn - 12/29/2020 9:03 EDT Narrative Progress Note Narrative Progress Note : 30yo female patient s/p gastric procedure. INP. L/2. ELOS 2 days. iADLs. lives with family who will transport home. no identified needs. PLAN: patient will dc home in 1 day. CM will follow. Yesenia Pandya Rn - 12/29/2020 9:03 EDT Electronically signed by Jose Cruz Price Conversion Electrician Constructor Supervisor Cerner at 10/15/2022 12:36 PM CDT documented in this encounter Plan of Treatment Not on file documented as of this encounter Visit Diagnoses Not on filedocumented in this encounter
--- OUTSIDE RECORDS SUMMARY | 2025-04-02 14:47 | XMS_ITS | Encounter Summary ---
Author Organization [employer] ([place], [place], [place], [place]) Address [address] [place] [address] Care Team Providers Care Molasses Preparer Name Role Phone Unavailable Primary Care Provider Unavailabl e Encounter Details Date Type Department Care Team (Late st Contact Info) Description 12/28/2020 Transcribed Document [facility] [place] [address] [place] [address] ProviderJonatan MD [address], [place] [id number] Social History Tobacco Use Types Packs/Day Years [...] Conversion Note - Historical ProviderMD - 12/28/2020 5:00 PM CDT Chart Check - Review Order Profile Entered On: 12/28/2020 19:58 EDT Performed On: 12/28/2020 17:00 EDT by BAMBI GAGE, RN Chart Check Powerplans Initiated/Discontinued as Appropriate : Yes All Active Orders Reviewed : Yes BAMBI GAGE RN - 12/28/2020 19:58 EDT documented in this encounter Plan of Treatment Not on file documented as of this encounter Visit Diagnoses Not on filedocumented in this encounter
--- OUTSIDE RECORDS SUMMARY | 2025-04-02 14:47 | XMS_ITS | Encounter Summary ---
Author Organization [employer] ([place], [place], [place], [place]) Address [address] [place] [address] Care Team Providers Care Community Service Officer Coordinator Name Role Phone Unavailable Primary Care Provider Unavailabl e Encounter Details Date Type Department Care Team (Late st Contact Info) Description 12/29/2020 Transcribed Document [facility] [place] Family Medicine [facility] [place] [address] ProviderJonatan MD [address] [place] [address] Social History Tobacco Use Types [...] Conversion Note - Jonatan ProviderMD - 12/29/2020 6:32 PM CDT Pain Assessment Entered On: 12/29/2020 5:27 EDT Performed On: 12/28/2020 22:20 EDT by Wyatt Cruz RN Intervention Information: acetaminophen-HYDROcodone Performed by Wyatt Cruz RN on 12/28/2020 21:20:00 EDT acetaminophen-HYDROcodone,2Tab Oral,Pain (Severe 7-10) Pain Assessment Pain Assessment : Follow-up assessment Pain Scale Goal : 3 Pain Scale Used : 0-10 Scale Wyatt Cruz RN - 12/29/2020 5:27 EDT Pain Scale Intensity : 3 Wyatt Cruz RN - 12/29/2020 5:27 EDT Image 4 - Images currently included in the form version of this document have not been included in the text rendition version of the form. documented in this encounter Plan of Treatment Not on file documented as of this encounter Visit Diagnoses Not on filedocumented in this encounter
--- OUTSIDE RECORDS SUMMARY | 2025-04-02 14:47 | XMS_ITS | Encounter Summary ---
Author Organization [employer] ([place], [place], [place], [place]) Address [address] [place] [address] Care Team Providers Care Wheel Alignment Technician Name Role Phone Unavailable Primary Care Provider Unavailabl e Encounter Details Date Type Department Care Team (Late st Contact Info) Description 07/07/2020 Transcribed Document [facility] [place] Family Medicine [address] [place] [address] ProviderJonatan MD [address] [place] [address] Social History Tobacco Use Types [...] - Jonatan ProviderMD - 07/07/2020 3:14 PM CAR CLERK PULLMAN [facility] IntraOp Summary Primary Physician: EMIL MENARD MD Finalized Date/Time: 07/07/20 15:42:24 Pt. Name: KARI GARCIA /Sex: 1990 Female Med Rec #: [id number] Physician: EMIL MENARD MD Financial #: [id number] Pt. Type: E Room/Bed: [facility] Admit/Disch: 07/07/20 10:44:00 - Institution: [facility] - Case Attendance Entry 1 Entry 2 Entry 3 Case Attendee Chandrika Sandy Rn BOOKER, P CRAIG, MD-TITO SOMERS, TECH Role Performed Concrete Conveyor Operator, First Anesthesiologist of Scrub, First Record Time In 07/07/20 14:51:00 07/07/20 14:51:00 07/07/20 14:51:00 Time Out 07/07/20 15:20:00 07/07/20 15:20:00 07/07/20 15:20:00 Procedure Esophagogastroduodenosco Esophagogastroduodenosco Esophagogastroduodenosco py, Gastric Biopsy py, Gastric Biopsy py, Gastric Biopsy Other Attendee Superficial Wound Closed By: Last Modified By: Chandrika Sandy Rn Conner, Elizabeth A, Chandrika Galvez, Linda 07/07/20 15:19:20 07/07/20 15:19:20 07/07/20 15:19:20 Entry 4 Entry 5 Entry 6 Case Attendee JULIOCESAR SAVAGE ZARAK, ALBERTO, MD STULL, KELSI A, CRNA COLLAR SHAPER OPERATOR Role Performed COLLAR SHAPER OPERATOR/Nurse Rock Mason Apprentice Surgeon/Proceduralist, COLLAR SHAPER OPERATOR/Nurse Rock Mason Apprentice First Time In 07/07/20 14:51:00 07/07/20 14:51:00 07/07/20 15:08:00 Time Out 07/07/20 15:07:00 07/07/20 15:20:00 07/07/20 15:20:00 Procedure Esophagogastroduodenosco Esophagogastroduodenosco Esophagogastroduodenosco py, Gastric Biopsy py, Gastric Biopsy py, Gastric Biopsy Other Attendee Superficial Wound Closed By: Last Modified By: Chandrika Sandy Rn Conner, Elizabeth A, Chandrika Galvez Rn 07/07/20 15:19:20 07/07/20 15:19:20 07/07/20 15:19:20 Entry 7 Case Attendee EMIL MENARD MD Role Performed Surgeon/Proceduralist, First Time In 07/07/20 15:12:00 Time Out 07/07/20 15:20:00 Procedure Esophagogastroduodenosco py, Gastric Biopsy Other Attendee Superficial Wound Closed By: Last Modified By: Chandrika Sandy Rn 07/07/20 15:19:20 [facility] - Case Attendance Audit 07/07/20 15:19:20 Licensed Professional Counselor: [id number] Modifier: [id number] 1 <*> Procedure Esophagogastroduodenoscopy 2 <*> Procedure Esophagogastroduodenoscopy 3 <*> Procedure Esophagogastroduodenoscopy 4 <*> Procedure Esophagogastroduodenoscopy 5 <*> Procedure Esophagogastroduodenoscopy 6 <*> Procedure Esophagogastroduodenoscopy 7 <*> Procedure Esophagogastroduodenoscopy 07/07/20 15:18:57 Licensed Professional Counselor: [id number] Modifier: [id number] 1 <*> Procedure Esophagogastroduodenoscopy, Gastric Biopsy 2 <*> Procedure Esophagogastroduodenoscopy, Gastric Biopsy 3 <*> Procedure Esophagogastroduodenoscopy, Gastric Biopsy 4 <*> Procedure Esophagogastroduodenoscopy, Gastric Biopsy 5 <*> Procedure Esophagogastroduodenoscopy, Gastric Biopsy 6 <*> Procedure Esophagogastroduodenoscopy, Gastric Biopsy 7 <*> Procedure Esophagogastroduodenoscopy, Gastric Biopsy 07/07/20 15:18:13 Licensed Professional Counselor: [id number] Modifier: [id number] 1 <+> Time Out 1 <*> Procedure Esophagogastroduodenoscopy, Gastric Biopsy 2 <+> Time Out 2 <*> Procedure Esophagogastroduodenoscopy, Gastric Biopsy 3 <+> Time Out 3 <*> Procedure Esophagogastroduodenoscopy, Gastric Biopsy 4 <*> Procedure Esophagogastroduodenoscopy, Gastric Biopsy 5 <+> Time Out 5 <*> Procedure Esophagogastroduodenoscopy, Gastric Biopsy 6 <+> Time Out 6 <*> Procedure Esophagogastroduodenoscopy, Gastric Biopsy 7 <+> Time Out 7 <*> Procedure Esophagogastroduodenoscopy, Gastric Biopsy 07/07/20 15:14:59 Licensed Professional Counselor: [id number] Modifier: [id number] 1 <*> Procedure Esophagogastroduodenoscopy 2 <*> Procedure Esophagogastroduodenoscopy 3 <*> Procedure Esophagogastroduodenoscopy 4 <*> Procedure Esophagogastroduodenoscopy 5 <*> Procedure Esophagogastroduodenoscopy 6 <*> Procedure Esophagogastroduodenoscopy 7 <*> Procedure Esophagogastroduodenoscopy 07/07/20 15:14:12 Licensed Professional Counselor: [id number] Modifier: [id number] <+> Time Out 4 <*> Procedure Esophagogastroduodenoscopy <+> 6 Case Attendee <+> 6 Role Performed <+> 6 Time In <+> 6 Procedure <+> 7 Case Attendee <+> 7 Role Performed <+> 7 Time In <+> 7 Procedure 07/07/20 15:00:22 Licensed Professional Counselor: [id number] Modifier: [id number] 1 <*> Procedure Esophagogastroduodenoscopy 2 <*> Procedure Esophagogastroduodenoscopy 3 <*> Procedure Esophagogastroduodenoscopy 4 <*> Procedure Esophagogastroduodenoscopy 5 <+> Time In 5 <*> Procedure Esophagogastroduodenoscopy 07/07/20 14:59:40 Licensed Professional Counselor: [id number] Modifier: [id number] Entry 1 was deleted. Higher numbered entries shifted one position to fill the gap. <-> 1 Case Attendee MUKUND NOVAK MD-JESUS <-> 1 Role Performed Surgeon/Proceduralist, First <-> 1 Time In 07/07/20 14:51:00 <-> 1 Procedure Esophagogastroduodenoscopy 2 <*> Case Attendee Chandrika Sandy, Rn 2 <*> Role Performed Concrete Conveyor Operator, First 2 <*> Time In 07/07/20 14:51:00 2 <*> Procedure Esophagogastroduodenoscopy 3 <*> Case Attendee Ning MCNULTY MD-ANS 3 <*> Role Performed Anesthesiologist of Record 3 <*> Time In 07/07/20 14:51:00 3 <*> Procedure Esophagogastroduodenoscopy 4 <*> Case Attendee TITO LISA TECH 4 <*> Role Performed Scrub, First 4 <*> Time In 07/07/20 14:51:00 4 <*> Procedure Esophagogastroduodenoscopy 07/07/20 14:58:33 Licensed Professional Counselor: [id number] Modifier: [id number] <+> 1 Procedure 2 <+> Time In 2 <*> Procedure Esophagogastroduodenoscopy 3 <+> Time In 3 <*> Procedure Esophagogastroduodenoscopy 4 <+> Time In 4 <*> Procedure Esophagogastroduodenoscopy 5 <+> Time In 5 <*> Procedure Esophagogastroduodenoscopy [facility] - Case Times Entry 1 Patient In Room Time 07/07/20 14:51:00 Out Room Time 07/07/20 15:20:00 Anesthesia Start Time 07/07/20 14:51:00 Stop Time 07/07/20 15:20:00 Anesthesia Ready 07/07/20 14:51:00 Surgery / Procedure Times Start Time 07/07/20 15:14:00 Stop Time 07/07/20 15:17:00 Last Modified By: Chandrika Sandy Rn 07/07/20 15:17:54 [facility] - Case Times Audit 07/07/20 15:17:54 Licensed Professional Counselor: [id number] Modifier: [id number] <+> 1 Out Room Time <+> 1 Stop Time <+> 1 Stop Time 07/07/20 15:14:46 Licensed Professional Counselor: [id number] Modifier: [id number] <+> 1 Start Time <+> 1 Start Time <+> 1 Anesthesia Ready [facility] - Delays Entry 1 Delay Reason Other Duration 140 Minute(s) Comment surgeon in operating room Last Modified By: Chandrika Sandy Rn 07/07/20 14:57:03 [facility] - Departure from OR Entry 1 Integumentary Assessment Integumentary WDL Assessment WDL Transfer/Handoff Transfer to PACU Phase I Handoff Method Bedside/Face to face Post-op Transport Stretcher/[place] Via Patient Transport Chandrika Sandy, Accompanied by Rn, JULIOCESAR SAVAGE CRNA Last Modified By: Chandrika Sandy Rn 07/07/20 14:57:07 [facility] - Endoscopy Details Entry 1 Abdomen Procedure Soft, Non-Tender Assessment Procedure Abdomen 07/07/20 14:57:00 Assessment D/T Radio Frequency Ablation Abdominal Pressure Last Modified By: Chandrika Sandy Rn 07/07/20 14:57:14 [facility] - Fire Risk Assessment Entry 1 Fire Info Surgical Site or 1- Yes Incision Above the Xyphoid Open O2 Source 1- Yes (Mask or Cannula) Available Ignition 1- Yes (ESU, Laser, Light Source) Fire Risk 3 Assessment Score Fire Score Fire Risk Yes Assessment Complete Fire Risk Chandrika Sandy Rn Assessment Verified By Fire Risk 07/07/20 14:57:00 Assessment Verified Date/Time Fire Risk High Risk Protocol Yes Implemented Standard Fire Yes Safety Precautions Followed Last Modified By: Chandrika Sandy Rn 07/07/20 14:57:19 [facility] Endo - General Case Instructional Supervisor 1 Case Information OR Endo 01 [facility] Case Level 1 Room Verified Yes Wound Class II - Clean-Contaminated Specialty SN General Anesthesia Type MAC ASA Class 2 Diagnosis Preop Diagnosis gerd without esophagitis Postop Same As Preop No Postop Diagnosis small hiatal hernia Last Modified By: Chandrika Sandy Rn 07/07/20 15:18:11 [facility] - General Case Data Audit 07/07/20 15:18:11 Licensed Professional Counselor: [id number] Modifier: [id number] <+> 1 Postop Diagnosis [facility] Endo - Intraoperative Assessment Entry 1 Handoff Method Other Valid History / Yes Physical in Chart Preoperative Yes Checklist Reviewed/Evaluated Allergies Reviewed Yes Patient is Latex No Sensitive Isolation Not applicable Precautions Noted Level of WDL Consciousness (WDL = Alert, Oriented to Person, Place, and Time) Present Upon IVs, ECG monitored Arrival to OR Last Modified By: Chandrika Sandy Rn 07/07/20 14:57:54 [facility] - Intraoperative Equipment Entry 1 Type Scope Equipment Intraop Monitoring Electrocardiogram Three lead placement (ECG) Electrode Placement Blood Pressure Arm, left upper Location Pulse Oximeter Hand, right Probe Site Antiembolic Devices Scopes Flexible Endoscopes Gastroscope Used Scope Serial [id number] Number/Identificatio n Number Photo/Video Documentation Photo Yes Video No Last Modified By: Chandrika Sandy Rn 07/07/20 14:58:07 [facility] - Patient Positioning Entry 1 Procedure Esophagogastroduodenosco py, Gastric Biopsy Body Position Lateral, right side up Left Arm Position Resting at side Right Arm Position Resting at side Left Leg Position Other Right Leg Position Other Position Comments Right leg over left leg uncrossed Feet Uncrossed Yes Pressure Points Yes Checked Positioned By Chandrika Sandy Rn, JULIOCESAR SAVAGE, GUY, TITO LISA TECH Position Verified Positioning Yes Verified by Anesthesia Positioning Yes Verified by Surgeon Last Modified By: Chandrika Sandy Rn 07/07/20 15:19:21 [facility] - Patient Positioning Audit 07/07/20 15:19:21 Licensed Professional Counselor: [id number] Modifier: [id number] 1 <*> Procedure Esophagogastroduodenoscopy 07/07/20 15:18:58 Licensed Professional Counselor: [id number] Modifier: [id number] 1 <*> Procedure Esophagogastroduodenoscopy, Gastric Biopsy 07/07/20 15:15:00 Licensed Professional Counselor: [id number] Modifier: [id number] 1 <*> Procedure Esophagogastroduodenoscopy [facility] - Sign In Entry 1 Patient, Site, Yes Procedure Identified Surgical Consent Yes Confirmed Relevant Surgical Yes Documents Available Surgical Site N/A Marked by person performing procedure Medication Checks Yes Completed Airway Difficult No Airway/Aspiration Risk Difficult No Airway/Aspiration Intervention Equipment Available Blood Loss Risk No Blood Loss No Intervention Equipment Prepared and Ready Blood Identifiers Not applicable Verified Per Policy Hypothermia Risk No Warming Measures Yes Taken Last Modified By: Chandrika Sandy Rn 07/07/20 14:58:22 [facility] - Sign Out Entry 1 RN Confirmation Surgical Yes Procedure(s) Identified Instrument, Sponge N/A and Sharps Counts Correct/Documented Equipment Problems N/A Documented Specimen Labeled Yes Correctly Urinary Catheter N/A Documented in IView Safety Checklist Yes Elements Complete? RN Sign Out Chandrika Sandy Rn Signature RN Sign Out 07/07/20 15:20:00 Signature Date/Time Plan of Care Outcome - [...] of Care Outcome - Counts OUTCOME STATEMENT: N/A Absence of signs and symptoms of injury related to extraneous objects Last Modified By: Chandrika Sandy Rn 07/07/20 15:18:01 [facility] - Sign Out Audit 07/07/20 15:18:01 Licensed Professional Counselor: [id number] Modifier: [id number] <+> 1 RN Sign Out Signature Date/Time [facility] - Surgical Procedures Entry 1 Entry 2 Procedure Esophagogastroduodenosco Gastric Biopsy py Modifiers Additional Procedure Description Primary Procedure Yes No Primary Surgeon EMIL MENARD MD ZARAK, ALBERTO, MD Start 07/07/20 15:14:00 07/07/20 15:14:00 Stop 07/07/20 15:17:00 07/07/20 15:17:00 Physician States Cecum Reached Anesthesia Type MAC MAC Specialty SN General SN General Wound Class II - Clean-Contaminated II - Clean-Contaminated Last Modified By: Chandrika Sandy Rn Conner, Elizabeth A, Rn 07/07/20 15:19:20 07/07/20 15:19:20 [facility] - Surgical Procedures Audit 07/07/20 15:19:20 Licensed Professional Counselor: [id number] Modifier: [id number] 1 <*> Procedure Esophagogastroduodenoscopy 1 <*> Primary Surgeon MUKUND NOVAK MD-JESUS 2 <*> Procedure Gastric Biopsy 2 <*> Primary Surgeon MUKUND NOVAK MD-JESUS 07/07/20 15:18:15 Licensed Professional Counselor: [id number] Modifier: [id number] <+> 1 Stop <+> 2 Stop 07/07/20 15:14:58 Licensed Professional Counselor: [id number] Modifier: [id number] <+> 1 Start <+> 2 Procedure <+> 2 Primary Procedure <+> 2 Primary Surgeon <+> 2 Specialty <+> 2 Start <+> 2 Wound Class <+> 2 Anesthesia Type [facility] - Time Out Entry 1 Procedure to be Esophagogastroduodenosco Performed py, Gastric Biopsy Time Out Time Out Pause Time 07/07/20 15:14:00 All activity Yes suspended (unless life threatening emergency) Team Verbally Correct patient Confirms Information identity, Consent form is present and accurate, Agreement on the procedure to be done, Correct patient position, Relevant images/results properly labeled/appropriately displayed, Reconcile problems if responses among team members differ Antibiotic N/A Prophylaxis Administered Or In Progress Within the Last 60 Minutes Beta Vale N/A Administered Venous N/A Thromboembolism Prophylaxis Required Anticipated Critical Events Surgeon None expected Anesthesia Provider None expected Last Modified By: Chandrika Sandy Rn 07/07/20 15:19:21 [facility] - Time Out Audit 07/07/20 15:19:21 Licensed Professional Counselor: [id number] Modifier: [id number] 1 <*> Procedure to be Performed Esophagogastroduodenoscopy 07/07/20 15:18:58 Licensed Professional Counselor: [id number] Modifier: [id number] 1 <*> Procedure to be Performed Esophagogastroduodenoscopy, Gastric Biopsy 07/07/20 15:15:00 Licensed Professional Counselor: [id number] Modifier: [id number] 1 <*> Procedure to be Performed Esophagogastroduodenoscopy 07/07/20 15:14:20 Licensed Professional Counselor: [id number] Modifier: [id number] 1 <+> Time Out Pause Time 1 <*> Procedure to be Performed Esophagogastroduodenoscopy Case Comments <None> Finalized By: Chandrika Sandy Rn Document Signatures Signed By: Chandrika Sandy Rn 07/07/20 15:42 documented in this encounter Plan of Treatment Not on file documented as of this encounter Visit Diagnoses Not on filedocumented in this encounter
--- OUTSIDE RECORDS SUMMARY | 2025-04-02 14:47 | XMS_ITS | Encounter Summary ---
Author Organization [employer] ([place], [place], [place], [place]) Address [address] [place] [address] Care Team Providers Care Adding Machine Mechanic Name Role Phone Unavailable Primary Care Provider Unavailabl e Encounter Details Date Type Department Care Team (Late st Contact Info) Description 12/29/2020 Transcribed Document [facility] [place] [address] [place] [address] ProviderJonatan MD [address] [place] [address] Social History Tobacco Use Types [...] Conversion Note - Historical ProviderMD - 12/29/2020 2:00 AM CDT Director Of Diagnostic Imaging Details Entered On: 12/29/2020 5:27 EDT Performed On: 12/29/2020 2:00 EDT by Wyatt Cruz, RN Order Details Patient Needs Meds Crushed/Liquid : No Wyatt Cruz, RN - 12/29/2020 5:27 EDT documented in this encounter Plan of Treatment Not on file documented as of this encounter Visit Diagnoses Not on filedocumented in this encounter
--- OUTSIDE RECORDS SUMMARY | 2025-04-02 14:47 | XMS_ITS | Encounter Summary ---
Author Organization [employer] ([place], [place], [place], [place]) Address [address] [place] [address] Care Team Providers Care High School French Teacher Name Role Phone Unavailable Primary Care Provider Unavailabl e Encounter Details Date Type Department Care Team (Late st Contact Info) Description 12/29/2020 Transcribed Document [facility] [place] [address] [place] [address] ProviderJonatan MD [address] [place] [address] Social History Tobacco Use Types Packs/Day Years Used Date Smoking Tobacco: Never Assessed Comments Unknown Sex and Gender Information Value Date Recorded Sex Assigned at Female 12/25/2021 6:38 PM CDT Legal Sex Female 6:38 PM CDT Gender Identity Female 12/25/2021 6:38 PM CDT Sexual Orientation Not on file documented as of this encounter Miscellaneous Notes * Cerner Conversion Note - Jonatan Evans MD - 12/29/2020 12:21 PM CDT Patient Education Materials Follows: [facility] Dr. Vern Kulkarni, [place] - Office - Physician Exchange Discharge Instructions Use your patient handbook! DIET ?? Staying hydrated is your main goal! Be sure to drink at least 64 ounces of fluid/water every day. ?? Remember the importance of hot liquids at least twice a day to reduce mucus build up and nausea. ?? Begin using your protein supplements as soon as you get home. Work up to at least 60-80 grams of protein from your supplements. That???s about 3-4 supplements a day. ?? You may start your soft, high protein diet only when you are drinking 64 oz of fluid and getting close to your 60 grams of protein from your supplements. ?? Stick with only the foods in phase three of your handbook. These foods are soft, moist and high in protein. Aim for about 3 Tbsp or 1.5 oz per meal. Remember no drinking with food or the hour after. ?? Use the fluid and protein log in your patient handbook to track your intake. ACTIVITY ?? No lifting over 20 pounds within two weeks after surgery, or until the doctor recommends it. ?? No water exercise for two weeks. ?? Do not sit or stand for long periods of time. When you do sit, change positions frequently. ?? Do not drive until 1 week after surgery and until you are off all pain medication. ?? You may resume sexual relations when comfortable. ?? Continue to use the spirometer (breathing exercise) that you brought home at least 4 times a day for the first week. ?? Begin to walk 30 minutes each day. At first you may need to take two or three 10 to 15 minute walks. Gradually increase the distance you walk as you tolerate. MEDICINES ?? Take your medicines as we discussed at discharge. There may be some changes from what you were on before surgery. Fill prescriptions given at hospital and begin taking the omeprazole (or equivalent) daily. ?? Post???op vitamins will begin after your post-op appointment. ?? Take a dose of Milk of Magnesia each day that you are taking pain medication or until you have normal bowel movement. ?? Take 2 Extra Strength Tylenol (500mg each for a total of 1000mg) every 6 hours not to exceed 4 doses in 24 hours. Use pain medication prescription for breakthrough pain. DIABETES ?? If you are diabetic, check your glucose. Call the office if it is greater than 200 more than 3 times in 24-48 hours. WOUND CARE ?? You will be sent home with bandages [...] to recover your drain site if needed. ?? Please notify [facility] of any drainage, type and amount, change in well-being: fever, increasing pain, inability to tolerate fluids or liquids. REMEMBER As you begin to use your body fat as fuel, you will become ketotic and therefore a bit nauseated. It is important that you continue your protein, even when you are not hungry or feel nauseated. When to Call Us ?? If you have abdominal pain worse than you ever had in the hospital. ?? If you have a temperature that is 101 degrees or more. ?? If you have unusual swelling in one or both legs ?? If you vomit and it looks different from what you just ate/drank. ?? If you have increased redness or drainage from incision sites. ?? If you have any other symptoms that concern you. Use your Patient Handbook! Many topics including nausea, vomiting, diarrhea, constipation, sleeplessness, headaches, and more are covered within this book. If you do not find an answer in your book, please call the Center at [phone] documented in this encounter Plan of Treatment Not on file documented as of this encounter Visit Diagnoses Not on filedocumented in this encounter
--- OUTSIDE RECORDS SUMMARY | 2025-04-02 14:48 | XMS_ITS | Encounter Summary ---
Author Organization [employer] ([place], [place], [place], [place]) Address [address] [place] [address] Care Team Providers Care Tool Sharpener Name Role Phone Unavailable Primary Care Provider Unavailabl e Encounter Details Date Type Department Care Team (Late st Contact Info) Description 12/28/2020 Transcribed Document [facility] [place] [address] [place] [address] ProviderJonatan MD [address] [id number] Social History Tobacco Use Types Packs/Day Years [...] Conversion Note - Historical ProviderMD - 12/28/2020 1:30 PM CDT Event Note Entered On: 12/28/2020 13:31 EDT Performed On: 12/28/2020 13:30 EDT by Ayana Cadena RN Event Note Event Date/Time : 12/28/2020 12:40 EDT Event Location : Assigned room Event Details : Other: see description Description of Event : Patient is now in preop bay 11 pending room availability. Patient is resting comfortably in bed. Ayana Cadena RN - 12/28/2020 13:30 EDT documented in this encounter Plan of Treatment Not on file documented as of this encounter Visit Diagnoses Not on filedocumented in this encounter
--- OUTSIDE RECORDS SUMMARY | 2025-04-02 14:48 | XMS_ITS | Encounter Summary ---
Author Organization [employer] ([place], [place], [place], [place]) Address [address] [place] [address] Care Team Providers Care Folder Stitcher Operator Name Role Phone Unavailable Primary Care Provider Unavailabl e Encounter Details Date Type Department Care Team (Late st Contact Info) Description 12/20/2020 Transcribed Document [facility] [place] Family Medicine [address] [place] [address] ProviderJonatan MD [address] [place] [address] Social History Tobacco Use Types [...] Cerner Conversion Note - Historical ProviderMD - 12/20/2020 10:27 AM CDT PAT Adult Entered On: 12/20/2020 10:32 EDT Performed On: 12/20/2020 10:27 EDT by Alanis Cummins RN Vital Measurements Temperature Source : Temporal artery scanning Temperature Mode : Fahrenheit Temperature, Fahrenheit : 98.7 Deg F Clinical Temperature, C : 37.1 Deg C Alanis Cummins RN - 12/20/2020 10:27 EDT Height and Weight, Clinical Dosing Height Source : Measured Height Entry Format : [place] Height, Feet : 5 ft(Converted to: 152 cm, 60 Inch) Height, Inches : 7 Inch(Converted to: 0 ft 7 Inch, 17.78 cm) Clinical Height : 170.18 cm Weight Source : Standing scale Weight Entry Format : [place] Clinical Dosing Weight : 131.73 kg Weight, Pounds : 289.8 lb Body Surface Area (BSA) : 2.37 m2 Body Mass Index : 45.5 kg/m2 (>HHI) [place] Body Weight : 61 kg Alanis Cummins RN - 12/20/2020 16:02 EDT Health Histories Smoking Status : Never (less than 100 in lifetime; none in last 30 days) Smokeless Tobacco Status : Never Alanis Cummins RN - 12/20/2020 10:27 EDT Social History (As Of: 12/20/2020 10:32:47 EDT) Tobacco: Never (less than 100 in lifetime) [...] COVID-19? : Yes, Patient stated results Negative Date of COVID-19 test known? : No Date Comment : November 2020 Does patient have symptoms of COVID-19? : No COVID19 Screening : No Experiencing Infectious Disease Symptoms : No symptoms Physical contact outside [place] in the last 30 days : No Infectious Disease History : Chicken pox/Shingles, Influenza Tuberculosis Symptoms : None Alanis Cummins RN - 12/20/2020 10:27 EDT COVID19 PreProcedure Screening Is this an Emergent or Add on Procedure? : No Date PreProcedure COVID-19 test known? : No Has patient been isolated since the test : N/A - PreProcedure, in-person visit Exposed to COVID19 symptoms since test? : N/A - PreProcedure, in-person visit Alanis Cummins RN - 12/20/2020 10:27 EDT Anesthesia/Transfusion History Family History of Anesthesia Reaction : No prior transfusion(s) Transfusion History : Prior anesthesia reaction Type of Anesthesia Reaction : Excessive somnolence Family History of Anesthesia Reaction : None Alanis Cummins RN - 12/20/2020 10:27 EDT Advance Directive Patient has Advance Directive *Q : No, patient refuses Advance Directive information Alanis Cummins RN - 12/20/2020 10:27 EDT [place] Suicide Severity Rating Scale (C-SSRS) CSSRS Past Month Wish to be : No CSSRS Past Month Suicidal Thoughts : No CSSRS Lifetime Suicide Behavior : No Suicide Severity Rating Score : 0 Suicide Severity Rating : No Additional Care Required at this time Alanis Cummins RN - 12/20/2020 10:27 EDT Psychosocial History Currently in Unsafe Situation : No Alanis Cummins RN - 12/20/2020 10:27 EDT Teaching/Learning Assessment Barriers To Learning : None evident Individuals Taught : Patient Readiness to Learn : Cooperative Baseline Knowledge of Topic : Limited Readiness to Learn : Explanation, Printed materials Learning Style Preferences Patient : None Learning Style Preferences Family : None Alanis Cummins RN - 12/20/2020 10:27 EDT Education Topics, Periop Preadmission Perioperative Education Grid IV's : Verbalizes understanding NPO Status/Directions : Verbalizes understanding Pain Management : Verbalizes understanding Postoperative Care Preparations : Verbalizes understanding Preprocedure Preparations : Verbalizes understanding Preprocedure Tests/Labs : Verbalizes understanding Remove Body Piercings : Verbalizes understanding Responsible Adult : Verbalizes understanding Take/Hold Medications Pre-Procedure : Verbalizes understanding Alanis Cummins RN - 12/20/2020 10:27 EDT General Info Support Person/Pt Rep Name : Lilia Speedy Family/Rep/Phys Notified of Admit : No Emergency Contact #1 : Lilia Roger Emergency Contact #1 Emergency Contact #1 Relationship : parent Emergency Contact #2 : . Emergency Contact #2 Phone Number : . Emergency Contact #2 Relationship : . Primary Language : Kyrgyz Communication Barrier : None Filtering Machine Tender Needed : No Alanis Cummins RN - 12/20/2020 10:27 EDT Markel Scale Markel Sensory Perception : No impairment Markel Moisture : Rarely moist Markel Activity : Walks occasionally Markel Mobility : No limitation Markel Nutrition : Adequate Markel Friction and Shear : No apparent problem Markel Score : 21 Alanis Cummins RN - 12/20/2020 10:27 EDT Sleep Apnea Risk Assmt Hx of Obstructive Sleep Apnea Diagnosis : No Snore Loudly : No Tired, Fatigued, or Sleepy During Day : No Observed Stopping Breathing During Sleep : No Have/Are Being Treated for Hypertension : No BMI Greater Than 35 kg/m2 : Yes Age over 50 Years Old : No Gender Male : No Alanis Cummins RN - 12/20/2020 10:27 EDT documented in this encounter Plan of Treatment Not on file documented as of this encounter Visit Diagnoses Not on filedocumented in this encounter
--- OUTSIDE RECORDS SUMMARY | 2025-04-02 14:48 | XMS_ITS | Encounter Summary ---
Author Organization [employer] ([place], [place], [place], [place]) Address [address] [place] [address] Care Team Providers Care Software Engineer Sales Name Role Phone Unavailable Primary Care Provider Unavailabl e Encounter Details Date Type Department Care Team (Late st Contact Info) Description 07/07/[address] [facility] [place] [facility] [place] [address] ProviderJonatan MD [address] [place] [address] Social History Tobacco Use Types [...] Conversion Note - Jonatan Evans MD - 07/07/2020 3:25 PM COIL PLACER Patient Education Materials Follows: ESOPHAGOGASTRODUODENOSCOPY Care After Read the instructions outlined [...] call your doctor. HOME CARE INSTRUCTIONS: ACTIVITY: ?? You may resume your regular activity tomorrow, but move at a slower pace for the next 24 hours. ?? Take frequent rest periods for the next 24 hours. ?? Walking will help get rid of the air and reduce the bloated feeling in your belly (abdomen). ?? No driving for 24 hours because of the medication (sedation) used during the test. ?? You may shower. ?? Do not sign any important legal documents or operate any machinery for 24 hours (because of the sedation used during the test). NUTRITION: ?? Drink plenty of fluids. ?? You may resume your normal diet or as instructed by your doctor ?? Begin with a light meal and progress to your normal diet. Heavy or fried foods are harder to digest and may make you feel sick to your stomach (nauseated). ?? Avoid alcoholic beverages for 24 hours or as instructed. MEDICATIONS: ?? You may resume your normal medications unless your doctor tells you otherwise. WHAT TO EXPECT TODAY: ?? Some feelings of bloating in the abdomen. ?? Excessive burping today and passage of more gas than usual. ?? A sore throat can be normal. Use throat lozenges or gargle with warm salt water and drink plenty of fluids. FINDING OUT THE RESULTS OF YOUR TEST: ?? Not all test results are available during your visit. If you had biopsies or other tests done during your procedure, you can make an appointment with your doctor to get the results. Sometimes you may be instructed to call the doctor's office for your results. It is important for you to follow up on all of your test results. SEEK IMMEDIATE MEDICAL CARE IF: ?? You cannot eat or drink. ?? You have worsening throat or chest pain. ?? You have dizziness, lightheadedness, or you faint. ?? You have severe nausea or vomiting. ?? You have a fever greater than 101. ?? You have chills. ?? You have severe abdominal pain or discomfort that gets worse throughout the day. ?? You have black, tarry, or bloody stools. [...] Follow these instructions at home: ??? Take pfxk-uih-xyaavbg and prescription medicines only as told by [...] 06/02/2013 Document Revised: 05/29/2018 Document Reviewed: 06/30/2016 [email or web address] Patient Education ? 2020 [email or web address] Hiatal Hernia A hiatal hernia occurs [...] symptoms. ??? Medicines. These may include: ? Fjfe-rye-kpfgndt antacids. ? Medicines that make your stomach [...] ? Fatty foods, like fried foods. ? [place] fruits, like oranges or lemon. ? Other foods and drinks that contain acid, like orange juice or tomatoes. ? Spicy food. ? Chocolate. ??? Eat frequent small meals instead of three large meals a day. This helps prevent your stomach from getting too full. ? Eat slowly. ? Do not lie down right after eating. ? Do not eat 1?2 hours before bed. ??? Do not drink beverages with caffeine. These include cola, coffee, cocoa, and tea. ??? Do not drink alcohol. General instructions ??? Take qlyg-jdj-hcphdrd and prescription medicines only as told by [...] 09/05/2004 Document Revised: 05/29/2018 Document Reviewed: 01/19/2018 [email or web address] Patient Education ? 2020 [email or web address]. Monitored Anesthesia Care, Care After These instructions [...] eating solid foods. General instructions ??? Take jwmn-jgm-lapbxfj and prescription medicines only as told by [...] 10/06/2016 Document Revised: 09/14/2018 Document Reviewed: 10/06/2016 [email or web address] Patient Education ? 2020 [email or web address]. Electronically signed by Jose Cruz Price Conversion Sap Plant Maintenance Consultant Cle[place] at 10/15/2022 12:42 PM CDT documented in this encounter Plan of Treatment Not on file documented as of this encounter Visit Diagnoses Not on filedocumented in this encounter
--- OUTSIDE RECORDS SUMMARY | 2025-04-02 14:48 | XMS_ITS | Encounter Summary ---
Author Organization [employer] ([place], [place], [place], [place]) Address [address] [place] [address] Care Team Providers Care Manager Real Estate Name Role Phone Unavailable Primary Care Provider Unavailabl e Encounter Details Date Type Department Care Team (Late st Contact Info) Description 12/28/2020 Transcribed Document [facility] [place] [facility] [place] [address] ProviderJonatan MD [address], [place] [id number] Social History Tobacco Use Types Packs/Day Years [...] Conversion Note - Jonatan ProviderMD - 12/28/2020 11:02 AM CDT Pain Assessment Entered On: 12/28/2020 19:59 EDT Performed On: 12/28/2020 17:27 EDT by BAMBI GAGE RN Intervention Information: HYDROmorphone Performed by BAMBI GAGE RN on 12/28/2020 16:57:00 EDT HYDROmorphone,0.5mg IV Push,Right Hand,Pain (Severe 7-10) Pain Assessment Pain Assessment : Follow-up assessment Pain Scale Goal : 3 Pain Scale Used : 0-10 Scale Pain Improved by : Medication Pain Intervention, Drug : Medicated Pain Improved by Intervention : Yes BAMBI GAGE RN - 12/28/2020 19:59 EDT Pain Scale Intensity : 3 BAMBI GAGE RN - 12/28/2020 19:59 EDT Image 4 - Images currently included in the form version of this document have not been included in the text rendition version of the form. documented in this encounter Plan of Treatment Not on file documented as of this encounter Visit Diagnoses Not on filedocumented in this encounter
--- OUTSIDE RECORDS SUMMARY | 2025-04-02 14:48 | XMS_ITS | Referral Summary ---
Author Organization [employer] ([place], [place], [place], [place]) Address [address] [place] [address] Care Team Providers Care Senior Electrical Design Engineer Name Role Phone Unavailable Primary Care Provider Unavailabl e Social History Tobacco Use Types Packs/Day Years Used Date Smoking Tobacco: Never Assessed Comments Unknown Sex and Gender Information Value Date Recorded Sex Assigned at Female 12/25/2021 6:38 PM CDT Legal Sex Female 6:38 PM CDT Gender Identity Female 12/25/2021 6:38 PM CDT Sexual Orientation Not on file Plan of Treatment Not on file
--- OUTSIDE RECORDS SUMMARY | 2025-04-02 14:48 | XMS_ITS | Encounter Summary ---
Author Organization [employer] ([place], [place], [place], [place]) Address [address] [place] [address] Care Team Providers Care Academic Advisor Name Role Phone Unavailable Primary Care Provider Unavailabl e Encounter Details Date Type Department Care Team (Late st Contact Info) Description 12/28/2020 Transcribed Document [facility] [place] Family Medicine [facility] [place] [address] ProviderJonatan MD [address] [place] [address] Social History Tobacco Use Types [...] Conversion Note - Jonatan ProviderMD - 12/28/2020 6:18 AM CDT PAT Adult Entered On: 12/28/2020 6:19 EDT Performed On: 12/28/2020 6:18 EDT by Rima Worthington Rn Vital Measurements Temperature Source : Oral Temperature Mode : Fahrenheit Temperature, Fahrenheit : 98.8 Deg F Clinical Temperature, C : 37.1 Deg C Pulse Method : Non-Invasive BP Device Peripheral Pulse Rate : 73 bpm Pulse Rhythm : Regular Respiratory Rate : 16 Breaths/Min Systolic Blood Pressure : 133 mmHg Diastolic Blood Pressure : 83 mmHg Oxygen Saturation : 96 % Oxygen Therapy Mode : Room air Rima Worthington Rn - 12/28/2020 6:18 EDT Height and Weight, Clinical Dosing Height Source : Measured Height Entry Format : [place] Height, Feet : 5 ft(Converted to: 152 cm, 60 Inch) Height, Inches : 7 Inch(Converted to: 0 ft 7 Inch, 17.78 cm) Clinical Height : 170.18 cm Weight Source : Standing scale Weight Entry Format : [place] Clinical Dosing Weight : 131.73 kg Weight, Pounds : 289.8 lb Body Surface Area (BSA) : 2.37 m2 Body Mass Index : 45.5 kg/m2 (>HHI) [place] Body Weight : 61 kg Rima Worthington Rn - 12/28/2020 6:18 EDT Health Histories Smoking Status : Never (less than 100 in lifetime; none in last 30 days) Smokeless Tobacco Status : Never Rima Worthington Rn - 12/28/2020 6:18 EDT Social History (As Of: 12/28/2020 06:19:47 EDT) Tobacco: Never (less than 100 in [...] Negative Date of COVID-19 test known? : Yes Date of COVID-19 Test : 12/26/2020 EDT Does patient have symptoms of COVID-19? : No COVID19 Screening : No Experiencing Infectious Disease Symptoms : No symptoms Physical contact outside [place] in the last 30 days : No Infectious Disease History : Chicken pox/Shingles, Influenza Tuberculosis Symptoms : None Rima Worthington Rn - 12/28/2020 6:18 EDT COVID19 PreProcedure Screening Is this an Emergent or Add on Procedure? : No Date PreProcedure COVID-19 test known? : Yes Date of PreProcedure COVID-19 : 12/26/2020 EDT Has patient been isolated since the test : Yes Exposed to COVID19 symptoms since test? : No Rima Worthington Rn - 12/28/2020 6:18 EDT Anesthesia/Transfusion History Family History of Anesthesia Reaction : No prior transfusion(s) Transfusion History : Prior anesthesia reaction Type of Anesthesia Reaction : Excessive somnolence Family History of Anesthesia Reaction : None Rima Worthington Rn - 12/28/2020 6:18 EDT Advance Directive Patient has Advance Directive *Q : No, patient refuses Advance Directive information Rima Worthington Rn - 7/1/2021 6:18 EDT [place] Suicide Severity Rating Scale (C-SSRS) CSSRS Past Month Wish to be : No CSSRS Past Month Suicidal Thoughts : No CSSRS Lifetime Suicide Behavior : No Suicide Severity Rating Score : 0 Suicide Severity Rating : No Additional Care Required at this time Rima Worthington Rn - 12/28/2020 6:18 EDT Psychosocial History Currently in Unsafe Situation : No Rima Worthington Rn - 12/28/2020 6:18 EDT General Info Support Person/Pt Rep Name : Lilia Speedy Family/Rep/Phys Notified of Admit : No Emergency Contact #1 : Lilia Roger Emergency Contact #1 Emergency Contact #1 Relationship : parent Emergency Contact #2 : . Emergency Contact #2 Phone Number : . Emergency Contact #2 Relationship : . Primary Language : Barbadian Communication Barrier : None Carpenter Supervisor [employer] Ship Needed : No Rima Worthington Rn - 12/28/2020 6:18 EDT Markel Scale Markel Sensory Perception : No impairment Markel Moisture : Rarely moist Markel Activity : Walks frequently Markel Mobility : No limitation Markel Nutrition : Excellent Markel Friction and Shear : No apparent problem Markel Score : 23 Rima Worthington Rn - 12/28/2020 6:18 EDT Sleep Apnea Risk Assmt Hx of Obstructive Sleep Apnea Diagnosis : No Snore Loudly : No Tired, Fatigued, or Sleepy During Day : No Observed Stopping Breathing During Sleep : No Have/Are Being Treated for Hypertension : No BMI Greater Than 35 kg/m2 : Yes Age over 50 Years Old : No Neck Circumference Greater Than 40 cm : No Gender Male : No STOP-BANG Sleep Apnea Risk Level Score : 1 Rima Worthington, Rn - 12/28/2020 6:18 EDT documented in this encounter Plan of Treatment Not on file documented as of this encounter Visit Diagnoses Not on filedocumented in this encounter
--- OUTSIDE RECORDS SUMMARY | 2025-04-02 14:48 | XMS_ITS | Clinical Summary ---
Author Organization [employer] ([place], [place], [place], [place]) Address [address] [place] [address] Care Team Providers Care Clasp Machine Operator Name Role Phone Unavailable Primary Care [...]
--- OUTSIDE RECORDS SUMMARY | 2025-04-02 14:48 | XMS_ITS | Encounter Summary ---
Author Organization [employer] ([place], [place], [place], [place]) Address [address] [place] [address] Care Team Providers Care Head Of Mathematics Name Role Phone Unavailable Primary Care Provider Unavailabl e Encounter Details Date Type Department Care Team (Late st Contact Info) Description 01/03/2021 Transcribed Document [facility] [place] Family Medicine [facility] [place] [address] ProviderJonatan MD [facility] [place] [id number] Social History Tobacco Use Types Packs/Day Years Used Date Smoking Tobacco: Never Assessed Comments Unknown Sex and Gender Information Value Date Recorded Sex Assigned at Female 12/25/2021 6:38 PM CDT Legal Sex Female 6:38 PM CDT Gender Identity Female 12/25/2021 6:38 PM CDT Sexual Orientation Not on file documented as of this encounter Miscellaneous Notes * Cerner Conversion Note - Jonatan ProviderMD - 01/03/2021 7:26 AM CDT Patient: KARI GARCIA Age: 30 Years Sex: Female : 1990 DATE OF PROCEDURE: 12/28/2020 PREOPERATIVE DIAGNOSIS(ES): Morbid obesity POSTOPERATIVE DIAGNOSIS(ES): Same PROCEDURE: Laparoscopic Mark-en-Y gastric bypass. SURGEON: Vern Diggs M.D. TELEPHONE COIN BOX COLLECTOR: Natalia Hernández MD BLOOD LOSS: Minimal INDICATIONS: is a 30-year-old female with history of longstanding morbid obesity. Her morbid obesity was accompanied by multiple comorbidities. Given these issues, she elected to proceed at this time with a laparoscopic Mark-en-Y gastric bypass. DESCRIPTION OF PROCEDURE: The patient was taken to the Operating Room and placed in supine position. Under general anesthesia the abdomen was prepped and draped in the usual fashion. Then the Veress needle was inserted on the abdomen through a stab incision at Jhaveri's point and insufflated up to 17mmHg. An incision was made just above the umbilicus and slightly to the left of the midline and using the optiview technique, a 5mm trocar was inserted. A quick survey of the abdominal cavity was performed and no intra-abdominal organ injury at entry was seen. The Veress needle was removed. Under direct guidance we placed a 5 mm trocar in the subxiphoid and a 5 mm. trocar in the left lateral and a 10-12 cutting trocar in the left abdomen and two 10-12 Optiview trocars in the right upper quadrant. Utilizing these, we placed the liver retractor and then placed the patient in the reversed Trendelenburg position. The gastric bypass was then created by first identifying the angle of His and opening the peritoneum at the angle of His and then inserting the Harmon retractor into the retrogastric space. We then measured approximately 7 cm down the lesser curve and at this level, opened up the lesser omentum using harmonic scalpel for bleeding control and entered the retrogastric space. Adequately placed a GI stapler blue load perpendicular across this, along the lesser curve side the full length and this was then clamped, held ten seconds and fired. We then continued to develop the retrogastric space and left a little larger and wider pouch distally and followed this up toward the angle of His using multiple fires of the FRANSISCA stapler and placing a 32 Lavacuator tube into the gastric pouch to insure that there was no narrowing stenosis as well created the pouch all the way along the lesser curve and up through and completely dividing the angle of His for a true divided pouch. Hemostasis was obtained with electrocautery where needed. At this point, we went down to the bowel. We then elevated the omentum. The omentum was split and divided below the gastrocolic ligament, essentially forking the omentum to allow for an antecolic Mark-en-Y. The ligament of Treitz was then identified and measured approximately 50 cm distally and divided the small bowel at this level. It was quite mobile. It easily reached the gastric pouch. This was divided with a FRANSISCA stapler and undermined a little bit of the Mark-Y limb with harmonic scalpel. We measured up 100 cm or a little more and anastomosed to the proximal biliary-pancreatic limb to the Mark-Y limb by making a little opening with the harmonic scalpel and both the biliary-pancreatic as well as the Mark-Y limb, dilated these with DeBakey, inserted the FRANSISCA stapler white load down both limbs the full length to create an end-to-side anastomosis of the biliary-pancreatic limb into the Mark-Y limb. This was held and then fired and then removed. The little residual opening was then closed by running a 3-0 absorbable vloc in 2 layers. This was closed very nicely and securely. We then closed mesenteric defect with a running 3-0 silk on a Lapra-Ty, running this down along the bowel down the mesentery until this was closed. The Lapra-Ty was then placed. We replaced the Mark limb just up anteriorly across the colon and then at this point, brought the EEA stapler through the dilated site, used a 25 mm EEA and brought this in and removed the anvil from this and then placed the anvil up alongside the gastric pouch. We reinserted the trocar and then we went up to the gastric pouch and opened up the lateral splenic side of the gastric pouch using the harmonic scalpel x2 fires to create an opening large enough to accommodate the anvil. We then placed another little gastrotomy on the more medial lesser curve side with harmonic scalpel. I dilated this a little bit with a [place] retractor and brought it out through the lateral opening in the pouch. At that point, I picked up the EEA, grasped this and pulled it up into the pouch and out through the small opening toward the lesser curve side. With the anvil up in the pouch, I then closed that opening in the lateral pouch through which the anvil had been brought, with a blue load of the FRANSISCA stapler. This made a very nice small and good sized pouch with a good closure and good hemostasis. At this point, we went back down to the Mark-Y limb, took down a little additional mesentery with harmonic scalpel, then opened up the antimesenteric side of the Mark-limb with harmonic scalpel, brought the EEA stapler back through the abdominal wall, placed this up into the Mark-Y limb a good two to three inches and then folding the small bowel back, I brought the spike out through the small bowel, identifying the orange band and attached this to the anvil, locking this into position. With proper orientation of pouch and limb, we closed this with appropriate tension, held for 60 seconds, fired and then released and removed the EEA stapler. The redundant small bowel through which the EEA stapler had been placed was then resected, taking a little additional mesentery and firing the FRANSISCA staple load across that as well. This lay without tension with a nice orientation and the anastomosis by inspection, looked intact circumferentially. At this point we passed a Levacuator tube into the pouch and insufflated CO2 for a leak test. The pouch was insufflated lightly with the mark limb clamped and a clean anastomosis with no bleeding was seen. No bubbles of air were seen on the leak test. Everything looked secure throughout the pouch and the anastomosis. We then reinforced the GJ anastomosis anteriorly with a 3-0 Vicryl stitch. We then inspected for bleeding. It was good and dry. At this point we closed Hyde space with a running 3-0 silk. The larger dilated EEA trocar site was closed with a #1 Vicryl using suturing device to provide fascial closure. We then deflated the abdomen, removed the liver retractor, closed the fascia and otherwise irrigated out the wounds with pressure irrigation especially the EEA site. Then we closed all incisions with jg on the skin. The patient tolerated this quite well and was taken to the recovery room in satisfactory condition. documented in this encounter Plan of Treatment Not on file documented as of this encounter Visit Diagnoses Not on filedocumented in this encounter
--- OUTSIDE RECORDS SUMMARY | 2025-04-02 14:48 | XMS_ITS | Encounter Summary ---
Author Organization [employer] ([place], [place], [place], [place]) Address [address] [place] [address] Care Team Providers Care Hog Pusher Name Role Phone Unavailable Primary Care Provider Unavailabl e Encounter Details Date Type Department Care Team (Late st Contact Info) Description 01/23/2021 Transcribed Document [facility] [place] Family Medicine [facility] [place] [address] ProviderJonatan MD [address] [place] [address] Social History Tobacco Use Types [...] Cerner Conversion Note - Jonatan ProviderMD - 01/23/2021 12:47 PM CDT Nursing Discharge Summary Entered On: 01/23/2021 12:46 EDT Performed On: 01/23/2021 12:47 EDT by CARLOS BOYER RN Discharge Documentation Discharge Date/Time : 01/23/2021 12:47 EDT Patient Disposition, General : Discharge Discharge To : Home with ambulatory/outpatient follow-up Mode Of Departure, General Discharge : Wheelchair Accompanied By, Discharge : Unaccompanied IV Discontinued : Yes IV Therapy Comment : no complications Personal Belongings With Patient : Yes Discharge Instructions Reviewed With, Opportunity For Questions Given : Patient Teaching Method : Explanation Teaching Evaluation : Verbalizes understanding Education Comment : Follow up with Dr. Digsg as scheduled. Call 911 for any severe pain, nausea and/or vomiting CARLOS BOYER RN - 01/23/2021 12:45 EDT documented in this encounter Plan of Treatment Not on file documented as of this encounter Visit Diagnoses Not on filedocumented in this encounter
--- OUTSIDE RECORDS SUMMARY | 2025-04-02 14:48 | XMS_ITS | Encounter Summary ---
Author Organization [employer] ([place], [place], [place], [place]) Address [address] [place] [address] Care Team Providers Care Pyrotechnist Name Role Phone Unavailable Primary Care Provider Unavailabl e Encounter Details Date Type Department Care Team (Late st Contact Info) Description 01/23/2021 Transcribed Document [facility] [place] [facility] [place] [address] ProviderJonatan MD [facility] [place] [address] Social History Tobacco Use Types [...] Conversion Note - Jonatan ProviderMD - 01/23/2021 9:50 AM CDT Outpatient Visit History Entered On: 01/23/2021 10:24 EDT Performed On: 01/23/2021 9:50 EDT by CARLOS BOYER RN Vital Measurements Temperature Source : Temporal artery scanning Temperature Mode : Fahrenheit Temperature, Fahrenheit : 97.8 Deg F Clinical Temperature, C : 36.6 Deg C Pulse Method : Non-Invasive BP Device Peripheral Pulse Rate : 78 bpm Respiratory Rate : 20 Breaths/Min Blood Pressure Location : Arm, right upper Blood Pressure Source : Non-Invasive BP Device Blood Pressure Position : Supine Systolic Blood Pressure : 124 mmHg Diastolic Blood Pressure : 85 mmHg Oxygen Saturation : 97 % Oxygen Therapy Mode : Room air CARLOS BOYER RN - 01/23/2021 10:21 EDT Height and Weight, Clinical Dosing Height Source : Chart Height Entry Format : [place] Height, Feet : 5 ft(Converted to: 152 cm, 60 Inch) Height, Inches : 7 Inch(Converted to: 0 ft 7 Inch, 17.78 cm) Clinical Height : 170.18 cm Weight Source : Standing scale Weight Entry Format : [place] Clinical Dosing Weight : 44.09 kg Weight, Pounds : 97 lb Body Surface Area (BSA) : 1.49 m2 Body Mass Index : 15.2 kg/m2 (<LLOW) [place] Body Weight : 61 kg CARLOS BOYER RN - 01/23/2021 10:21 EDT Quick Look Assessment Level of Consciousness : Alert Affect/Behavior : Calm Orientation : Oriented x 4 Skin Temperature : Warm Skin Description : Normal for ethnicity CARLOS BOYER RN - 01/23/2021 10:21 EDT Health Histories Smoking Status : Never (less than 100 in lifetime; none in last 30 days) Smokeless Tobacco Status : Never CARLOS BOYER RN - 01/23/2021 10:21 EDT Social History (As Of: 01/23/2021 10:24:37 EDT) Tobacco: Never (less than 100 in [...] Chicken pox/Shingles, Influenza Tuberculosis Symptoms : None CARLOS BOYER RN - 01/23/2021 10:21 EDT COVID19 PreProcedure Screening Is this an Emergent or Add on Procedure? : No Date PreProcedure COVID-19 test known? : No Has patient been isolated since the test : No Exposed to COVID19 symptoms since test? : No CARLOS BOYER RN - 01/23/2021 10:21 EDT Advance Directive Patient has Advance Directive *Q : No, patient refuses Advance Directive information CARLOS BOYER RN - 01/23/2021 10:21 EDT [place] Suicide Severity Rating Scale (C-SSRS) CSSRS Past Month Wish to be : No CSSRS Past Month Suicidal Thoughts : No CSSRS Lifetime Suicide Behavior : No Suicide Severity Rating Score : 0 Suicide Severity Rating : No Additional Care Required at this time CARLOS BOYER RN - 01/23/2021 10:21 EDT Psychosocial History Does Someone Depend on You for Care? : Yes Have Arrangements been Made? : Yes Do You Have a History of the Following? : Anxiety, Depression Currently in Unsafe Situation : No CARLOS BOYER RN - 01/23/2021 10:21 EDT Fall Risk Scales ABCs Fall Injury Risk Identification : None JOSE Hx Falls Immediate/Within 3 Months : No Jose Secondary Diagnosis : No JOSE Use of Ambulatory Aid : None JOSE IV Therapy or IV Access : No Jose Gait/Transferring : Normal, bedrest, immobile Jose Mental Status : Oriented to own ability Jose Fall Risk Score : 0 JOSE Fall Scale Risk Level : 0-24 Low Risk Stella Fall Interventions : Adequate lighting, Bed in low position, Call device within reach, Fall prevention handout/education per facility policy, Frequent orientation to call device, Frequent orientation to surroundings, Hourly comfort/safety rounds, Non-slip footwear, Personal items within reach, Room free of clutter/spills, Wheels locked, Wires/Cords secured CARLOS BOYER RN - 01/23/2021 10:21 EDT Pain Assessment Pain Assessment : Initial assessment Intensity : 0 CARLOS BOYER RN - 01/23/2021 10:21 EDT documented in this encounter Plan of Treatment Not on file documented as of this encounter Visit Diagnoses Not on filedocumented in this encounter
--- OUTSIDE RECORDS SUMMARY | 2025-04-02 14:48 | XMS_ITS | Encounter Summary ---
Author Organization [facility] Address [address] [place] [address] Care Team Providers Care Edger Operator Name Role Phone Warren Cedeño MD Primary Care Provider [phone] Janeth Flores APRN Primary Care Provider [phone] Encounter Details Date Type Department Care Team ([facility] st Contact Info) Description 07/27/2024 Orders Only External Location [address] [place] [address] Provider, External Social History Tobacco Use Types Packs/Day Years Used Date Smoking Tobacco: Never Smokeless Tobacco: Never Comments Unknown Sex and Gender Information Value Date Recorded Sex Assigned at Female 07/30/2024 2:45 PM EST Legal Sex Female 8:58 PM EDT Gender Identity Female 07/30/2024 2:45 PM EST Sexual Orientation Not on file documented as of this encounter Plan of Treatment Not on file documented as of this encounter Procedures Procedure Name Priority Date/Time Associated Diagnosis Comments US OUTSIDE IMAGES 07/27/2024 9:15 AM EST documented in this encounter Results * US OUTSIDE IMAGES (07/27/2024 9:15 AM EST) Anatomical Region Laterality Modality Ultrasound 07/27/2024 9:15 AM EST us External Provider IMG US PROCEDURES Final Result documented in this encounter Visit Diagnoses Not on filedocumented in this encounter Care Teams Edger Operator Relationship Specialty Start Date End Date [place] Cedeño MD [address] [place] [id number] PCP - General 11/10/20 08/22/24 Janeth Flores APRN [address] [place] [address] PCP - General 08/23/24 documented as of this encounter
--- OUTSIDE RECORDS SUMMARY | 2025-04-02 14:48 | XMS_ITS | Encounter Summary ---
Author Organization [employer] ([place], [place], [place], [place]) Address [address] [place] [address] Care Team Providers Care Clinical Laboratory Medical Director Name Role Phone Unavailable Primary Care Provider Unavailabl e Encounter Details Date Type Department Care Team (Late st Contact Info) Description 12/20/2020 Transcribed Document [facility] [place] Family Medicine [address] [place] [address] ProviderJonatan MD [address] [place] [address] Social History Tobacco Use Types [...] Conversion Note - Historical ProviderMD - 12/20/2020 10:18 AM CDT Meds to Bed Enrollment Entered On: 12/20/2020 10:18 EDT Performed On: 12/20/2020 10:18 EDT by Alanis Cummins RN Meds to Bed Enrollment Patient Enrollment Decision: : Yes/enroll in meds to bed program Alanis Cummins RN - 12/20/2020 10:18 EDT documented in this encounter Plan of Treatment Not on file documented as of this encounter Visit Diagnoses Not on filedocumented in this encounter
--- OUTSIDE RECORDS SUMMARY | 2025-04-02 14:48 | XMS_ITS | Encounter Summary ---
Author Organization [employer] ([place], [place], [place], [place]) Address [address] [place] [address] Care Team Providers Care Head Of Sales And Marketing Name Role Phone Unavailable Primary Care Provider Unavailabl e Encounter Details Date Type Department Care Team (Late st Contact Info) Description 12/28/2020 Transcribed Document [facility] [place] [facility] [place] [address] ProviderJonatan MD [address] [place] [address] Social History Tobacco Use Types [...] Conversion Note - Jonatan ProviderMD - 12/28/2020 6:00 PM CDT Pain Assessment Entered On: 12/28/2020 19:59 EDT Performed On: 12/28/2020 17:27 EDT by BAMBI GAGE RN Intervention Information: ketorolac Performed by BAMBI GAGE RN on 12/28/2020 16:57:00 EDT ketorolac,15mg IV Push,Right Hand Pain Assessment Pain Assessment : Follow-up assessment Pain Scale Goal : 3 Pain Scale Used : 0-10 Scale Pain Improved by : Medication Pain Intervention, Drug : Medicated Pain Improved by Intervention : Yes BAMBI GAGE RN - 12/28/2020 19:58 EDT Pain Scale Intensity : 3 BAMBI GAGE RN - 12/28/2020 19:58 EDT Image 4 - Images currently included in the form version of this document have not been included in the text rendition version of the form. Electronically signed by Jose Cruz Price Conversion Surgical Elastic Knitter Hand Frame Cerner at 10/15/2022 12:22 PM CDT documented in this encounter Plan of Treatment Not on file documented as of this encounter Visit Diagnoses Not on filedocumented in this encounter
--- OUTSIDE RECORDS SUMMARY | 2025-04-02 14:48 | XMS_ITS | Encounter Summary ---
Author Organization [employer] ([place], [place], [place], [place]) Address [address] [place] [address] Care Team Providers Care Vice President Investor Relations Name Role Phone Unavailable Primary Care Provider Unavailabl e Encounter Details Date Type Department Care Team (Late st Contact Info) Description 12/27/2020 Transcribed Document [facility] [place] Family Medicine [address] [place] [address] ProviderJonatan MD [address] [place] [id number] Social History Tobacco Use Types Packs/Day Years [...] Conversion Note - Jonatan Evans MD - 12/27/2020 10:02 AM CDT UM Authorization Entered On: 12/27/2020 10:03 EDT Performed On: 12/27/2020 10:02 EDT by GIFTY CANTU RN-Utilization Review Primary Insurance Authorization Authorization and Policy Numbers : Insurance 1 Health Plan[facility] Policy Number: [id number] Authorization Number: Insurance Primary Name : [facility] Policy Number: [id number] Authorization Status-Primary : Admit approved Reference Number-Primary : [id number] Authorization Number-Primary : [id number] Number of Days Authorized-Primary : 0 Day(s) Authorized Service Begin Date-Primary : 12/28/2020 EDT Authorized Service End Date-Primary : 12/28/2020 EDT Authorization Comments-Primary : Wm approved per Star note for inpt 1 day Historical Authorization Comments-Primary : No Authorization Comments Found GIFTY CANTU RN-Utilization Review - 12/27/2020 10:02 EDT Electronically signed by Jose Cruz Price Conversion Tactical Response Group Officer Cerner at 10/15/2022 12:22 PM CDT documented in this encounter Plan of Treatment Not on file documented as of this encounter Visit Diagnoses Not on filedocumented in this encounter
--- NOTE | 2025-04-02 14:54 | ED_ITS ---
<Statement entered by Moris Burks MD - 04/04/25 14:51> I was consulted by the BARBARA, and we discussed the complexity of the problems being addressed. I approve the treatment and management plan for this patient's care in the emergency department, thus performing a substantive portion of the medical decision making. Moris Burks MD Discharge Plan Disposition Patient Disposition: Home, Self-Care Condition: Good Prescriptions Prescriptions: New cyclobenzaprine 10 mg tablet 10 mg PO HS PRN (Reason: muscle spasm) Qty: 14 0RF No Action levonorgestrel 1 EACH intrauterine device 1 each UR ONCE vortioxetine 20 MG tablet 20 mg PO DAILY phenazopyridine 200 MG tablet 200 pow PO TID Qty: 6 0RF sulfamethoxazole-trimethoprim 1 EACH tablet 1 each PO BID 7 Days Qty: 14 0RF cephalexin 500 MG capsule 500 mg PO Q6H 10 Days Qty: 40 0RF mupirocin 22 GM ointment 1 applicatio TP TID 7 Days Qty: 1 0RF chlordiazepoxide HCl 25 mg capsule See Rx Instructions .ROUTE .COMPLEX Qty: 13 0RF Rx Instructions: Please take 50 mg every 8 hours on day one, 25 mg every 6 hours on day two, 25 mg every 12 hours on day three, 25 mg at night on day four. Referrals Follow up/Referrals: Janeth Flores APRN [Primary Care Provider, Medical] - See instructions Activity Restrictions/Add. Instructions Additional Instructions/Restrictions: Please return to the emergency department with any worsening signs or symptoms. Please take all your medication at home as prescribed. Please utilize muscle relaxer as needed for symptomatic relief. You can use Tylenol tonight, I would hold off on any ibuprofen until tomorrow. Please follow-up with your PCP and other doctors in the next upcoming days/weeks. Clinical Impressions Clinical Impression: Headache, tension-type Instructions Patient Instructions: DI for Migraine, Tension Headache Print Language Print Language: Sinhala Discharge ED Provider: Moris Burks General Adult HPI General Chief complaint: Headache Stated complaint: Headache for 9 days, gotten worse Time Seen by Provider: 04/02/25 14:42 Mode of Arrival: Ambulatory Source of Information: Patient Description of Symptoms (Recalled from ER Triage Doc. by RN): Patient complaining of a headache in her entire head that started 9 days ago. States she has been trying Tylenol and Ibuprofen with no relief. Last took Tylenol 1000 mg at 1000 this morning and Ibuprofen 600 mg at 0830 this morning. Has not seen her PCP. Also states she has occasionally been taking Medrol dose sneha. History of Present Illness HPI narrative: 34-year-old female presents the emergency department accompanied by her family with headache that has been fairly constant for the last 9 days, it is nonpositional, has some nausea, phonophobia, no photophobia, describes some left eye numbness , she has been utilizing ibuprofen and Tylenol, last dose of Tylenol 1000 mg at a.m. this morning and ibuprofen 6 mg at 830 this morning, patient states that she around 3 weeks ago was diagnosed with an upper respiratory infection, she admitted to cough and congestion, does have some hoarse voice, and was told that she had laryngitis , recently finished a Medrol Dosepak. Patient denies any fever or chills, denies any neck stiffness or pain, denies any dizziness/vertiginous symptoms, does admit to lightheadedness that started today, admits to head tightness , denies any chest pain, denies any shortness of breath, denies any abdominal pain, denies any vomiting, constipation diarrhea no urinary symptomatology, patient is a non-smoker, denies any alcohol, does admit to occasional THC gummy , use, other past medical history is consistent with MDD/MALIK, implantable IUD, data deficient history of alcohol use/abuse per medical record. Of note, patient tells me she recently started Trintellix . Initial triage vitals are unremarkable. Please note that above description of symptoms, in this electronic medical record under categorization of recalled from ER triage doctor by RN are reflective of an initial nursing assessment, however, is not reflective of my full history and physical exam that was personally taken and clarified. Consequentially, this preceding description of symptoms, which may include the patient's categorized chief complaint in the EMR, do not reflect my personal clinical impression, and the ultimate description of history of present illness and patient stated complaints should be deferred to this section of the note. Unless stated otherwise or congruent with this section of the note, additional signs, symptoms, or incongruence should be interpreted as inaccurate with my clinical impression. Onset (ago): day(s) Related Data Home Medications ?Medication ?Instructions ?Recorded ?Confirmed levonorgestrel 1 each UR ONCE control 11/16/20 11/16/20 vortioxetine 20 mg tablet 20 mg PO DAILY Depression 11/16/20 Previous Rx's ?Medication ?Instructions ?Recorded phenazopyridine 200 mg tablet 200 pow PO TID #6 tabs 0 11/16/20 sulfamethoxazole 800 1 each PO BID 7 days #14 tab s 11/16/20 mg-trimethoprim 160 mg tablet cephalexin 500 mg capsule 500 mg PO Q6H 10 days #40 ca ps 01/26/22 mupirocin 2 % topical ointment 1 applicatio topical TI D 7 days #1 01/26/22 g chlordiazepoxide HCl 25 mg capsule See Rx Instructions .Route 04/26/22 .COMPLEX #13 caps cyclobenzaprine 10 mg tablet 10 mg PO HS PRN muscle sp asm #14 04/02/25 tabs Allergies Allergy/AdvReac Type Severity Reaction Status Date / Time piperacillin (From ZOSYN) Allergy Mild Swelling Verified 04/02/25 14:47 of Lip/Tongue/Throat tazobactam (From ZOSYN) Allergy Mild Swelling Verified 04/02/25 14:47 of Lip/Tongue/Throat amoxicillin Allergy Unknown Verified 04/02/25 14:47 allergy reaction Penicillins Allergy Unknown Verified 04/02/25 14:47 allergy reaction PFSH PFSH Disclaimer: The information contained in this section may have been updated after the patient was seen, as this information can be updated by other users. Social History Smoking Status: Never smoker alcohol intake: never current occupational status: other Travel in the last 8 weeks?: None Have you lived/traveled outside [place] in past 30 days?: No Contact w/someone who lives/traveled outside [place] past 30 days?: No Exposure to someone with infectious disease in past 14 days?: No Do you have a fever (greater than 100.4 F or 38 C)?: No Have you tested positive for COVID-19?: No Exposed to someone with COVID-19 in past 14 days?: No Do you have a sore throat?: No Do you have a cough?: No Do you have any weakness?: No Do you have any diarrhea?: No Are you experiencing any unusual bleeding?: No Do you have any muscle aches/pain?: No Do you have any abdominal pain?: No Are you experiencing loss of taste or smell?: No ROS Obtained: Yes All systems reviewed & no additional complaints except as documented Physical Exam General General appearance: alert and in no apparent distress Head Head exam: atraumatic and normocephalic Eye Eye exam: Present PERRL and EOMI ENT ENT exam: Present mucous membranes moist Neck Neck exam: Present normal inspection and full ROM; Absent tenderness or meningismus Chest Chest inspection: Present normal inspection and symmetric chest wall rise Respiratory Respiratory exam: Present normal lung sounds bilaterally; Absent respiratory distress Cardiovascular Cardiovascular exam: Present regular rate and normal rhythm Abdominal Exam Abdominal exam: Present soft; Absent tenderness, guarding, rebound or rigidity Extremities Exam Extremities exam: Present normal inspection Back Exam Back exam: Present normal inspection and full ROM; Absent tenderness, paraspinal tenderness or vertebral tenderness Neurological Exam Neurological exam: Present alert, oriented X3 and other (Moves extremities to command, no gross sensation deficit, no focal neurological deficit.) Psychiatric Psychiatric exam: Present normal affect Skin Skin exam: Present warm and dry Medical Decision Making Medical Records Medical records reviewed: Yes I reviewed the patient's medical records. Screening: Per USPSTF and CDC recommendations, given the prevalence of disease in our region, it is our hospital?s policy to screen for HIV and viral Hepatitis for all patients aged 18 and over and those with ongoing risk factors. [place] Inquiry Pt receiving controlled substance: No [place] was queried for this patient: No Vital Signs: 04/02/25 14:43 04/02/25 15:30 04/02/25 16:00 Temperature 98.3 F Temperature Source Oral Pulse Rate 71 63 Pulse Rate [Right Brachial] 86 Respiratory Rate 16 Blood Pressure 129/91 H 114/79 Blood Pressure [Right Arm] 145/103 H Blood Pressure Mean [Right Arm] 117 Blood Pressure Source [Right Arm] Automatic Cuff Blood Pressure Position [Right Arm] Sitting 02 Sat by Pulse Oximetry 99 100 96 Oxygen Delivery Method Room Air 04/02/25 16:30 04/02/25 17:00 Temperature Temperature Source Pulse Rate 61 61 Pulse Rate [Right Brachial] Respiratory Rate Blood Pressure 105/68 L 110/70 Blood Pressure [Right Arm] Blood Pressure Mean [Right Arm] Blood Pressure Source [Right Arm] Blood Pressure Position [Right Arm] 02 Sat by Pulse Oximetry 95 97 Oxygen Delivery Method Room Air Room Air Lab Data Lab results reviewed: Yes I reviewed the patient's lab results. Lab Results 04/02/25 15:24: Plasma/Serum Alcohol < 10 04/02/25 15:25: WBC 8.5, RBC 4.60, Hgb 13.9, Hct 41.2, MCV 89.6, MCH 30.2, MCHC 33.7, RDW 13.0, Plt Count 209, MPV 10.8 H, Neut % (Auto) 87.3 H, Lymph % (Auto) 10.8, [place] % (Auto) 1.6 L, Eos % (Auto) 0.0 L, Baso % (Auto) 0.2, Neut # (Auto) 7.4, Lymph # (Auto) 0.9, [place] # (Auto) 0.1, Eos # (Auto) 0.0, Baso # (Auto) 0.0, Sodium 137, Potassium 4.2, Chloride 103, Carbon Dioxide 26, Anion Gap 12.2, BUN 8, Creatinine 0.70, Estimated Creat Clear 133, Estimated GFR 95, Est GFR ( Amer) 115, Glucose 100, Calcium 9.2, Magnesium 1.9, Total Bilirubin 0.6, AST 20, ALT 18, Alkaline Phosphatase 66, Total Protein 6.6, Albumin 3.9, Globulin 2.7, Albumin/Globulin Ratio 1.4, SARS-CoV-2 (PCR) Not detected, Influenza Type A (PCR) Not detected, Influenza Type B (PCR) Not detected, RSV (PCR) Not detected, Rhinovirus (PCR) Not detected 04/02/25 15:31: Urine Color Yellow, Urine Appearance Clear, Urine pH 7.5, Ur Specific [place] 1.015, Urine Protein Negative, Urine Glucose (UA) Negative, Urine Ketones 2+, Urine Blood Negative, Urine Nitrate Negative, Urine Bilirubin Negative, Urine Urobilinogen 1.0, Ur Leukocyte Esterase Negative, Urine RBC None, Urine WBC 3-5, Ur Squamous Epith Cells 10-20, Urine Bacteria 3+, Urine HCG, Qual Negative 04/02/25 15:25 04/02/25 15:25 Orders (Tests/Meds): ED MEDICATIONS Discontinued Medications Generic Name Dose Route Start Last Admin Trade Name Freq PRN Reason Stop Dose Admin Dexamethasone Sodium Phosphate 10 mg 04/02/25 15:18 04/02/25 15:34 Dexamethasone 4mg/Ml 1ml Vial IV 04/02/25 15:19 10 mg ONCE ONE Administration Diphenhydramine HCl 25 mg 04/02/25 15:18 04/02/25 15:34 Diphenhydramine 50mg/Ml Vial IV 04/02/25 15:19 25 mg ONCE ONE Administration Iopamidol 80 ml 04/02/25 16:10 04/02/25 16:12 Iopamidol-370 (76%);100ml Bottle IV 04/02/25 16:11 80 ml ONCE ONE Administration Prochlorperazine Edisylate 10 mg 04/02/25 15:18 04/02/25 15:34 Prochlorperazine 10mg/2ml Vial IV 04/02/25 15:19 10 mg ONCE ONE Administration Sodium Chloride 10 ml 04/02/25 16:10 04/02/25 16:12 Sodium Chloride 0.9% 10ml Syr (Rad Only) IV 04/02/25 16:11 10 ml ONCE ONE Administration ORDERS Category Date Time Status CT Venogram head Stat Cat Scan 04/02/25 15:[address] head/brain wo con Stat Cat Scan 04/02/25 15:16 Completed Complete Blood Count Auto Diff Stat Lab 04/02/25 15:25 Completed Comprehensive Metabolic Panel Stat Lab 04/02/25 15:25 Completed Ethanol [Ethyl Alcohol] Stat Lab 04/02/25 15:24 Completed Magnesium Stat Lab 04/02/25 15:25 Completed Mini Respiratory Panel Stat Lab 04/02/25 15:25 Completed Urinalysis and Microscopic Stat Lab 04/02/25 15:31 Completed Urine , HCG Qual. Stat Lab 04/02/25 15:31 Completed Urine Culture Stat Micro 04/02/25 15:31 Received Medical Decision Narrative: 34-year-old female presents emergency department with a headache for 9 days with nausea, phonophobia, differential diagnose include but not limited to, viral URI, tension headache, migraine without aura, migraine with aura, cluster headache, ophthalmologic migraines, cervicogenic migraine, malignancy, among others I discussed this patient's case with attending patient Dr. Burks Will obtain basic laboratory studies, ethyl alcohol level magnesium level mini respiratory panel, UA and urine hCG, will give 10 mg IV dexamethasone and 25 mg IV Benadryl and Compazine 10 mg IV for migraine cocktail, obtain CT head without contrast and CT venogram. CMP unremarkable alcohol level within normal limits CBC unremarkable Urine hCG qualitative negative Urinalysis unremarkable Microscopic analysis of the patient's urine is notable for 3-5 WBCs 10-20 squamous epithelial cells and 3+ urine bacteria. COVID-19 and influenza A, RSV and rhinovirus are negative I reviewed the patient's CT head without contrast along with the corresponding radiologic reports, no acute intracranial abnormality. I reviewed the patient's CT venogram along the corresponding radiologic report CT venogram is negative, no acute venous sinus thrombosis. I discussed these results with the patient and family at the bedside, patient and family are in agreement with the current treatment plan/discharge plan. Patient states her headache is improved, will give additional dose of 15 mg IV Toradol prior to discharge as patient still has slight headache, but much improved since previous. Patient also requesting some muscle relaxers , sent into her pharmacy as a cell previous. Will call in a short course of Flexeril 10 mg p.o. to take as needed for symptomatic relief. Patient and family given strict ED return precautions. Patient voiced understanding and agreement with current treatment plan/discharge plan. Critical Care Critical Care Time Critical Care Time: No
--- NOTE | 2025-04-02 15:15 | CT_ITS ---
PROCEDURE INFORMATION: Exam: CTA Head With Contrast, Venography Exam date and time: 04/02/2025 4:14 PM Age: 34 years old Clinical indication: Pain; Headache; Additional info: Headache, nausea, left eye numbness TECHNIQUE: Imaging protocol: Computed tomography angiography of the head with contrast. Exam focused on the veins. 3D rendering (Not supervised by radiologist): MIP and/or 3D reconstructed images were created by the technologist. Radiation optimization: All CT scans at this facility use at least one of these dose optimization techniques: automated exposure control; mA and/or kV adjustment per patient size (includes targeted exams where dose is matched to clinical indication); or iterative reconstruction. Contrast material: ISOVUE; Contrast volume: 80 ml; Contrast route: INTRAVENOUS (IV); COMPARISON: CT HEAD/BRAIN WO CON 04/02/2025 4:12 PM FINDINGS: Superior sagittal sinus: Patent. Straight sinus: Patent. Transverse sinuses: Patent. Sigmoid sinuses: Patent. Internal jugular veins: Limited visualized internal jugular veins are patent. Brain: No definite mass, mass effect, or midline shift. Cerebral ventricles: No ventriculomegaly. Soft tissues: Unremarkable. IMPRESSION: No venous thrombosis.
--- NOTE | 2025-04-02 15:16 | CT_ITS ---
PROCEDURE INFORMATION: Exam: CT Head Without Contrast Exam date and time: 04/02/2025 4:12 PM Age: 34 years old Clinical indication: Pain; Headache; Additional info: Headache, nausea TECHNIQUE: Imaging protocol: Computed tomography of the head without contrast. Radiation optimization: All CT scans at this facility use at least one of these dose optimization techniques: automated exposure control; mA and/or kV adjustment per patient size (includes targeted exams where dose is matched to clinical indication); or iterative reconstruction. COMPARISON: No relevant prior studies available. FINDINGS: Brain: Normal. Cerebral ventricles: No ventriculomegaly. Paranasal sinuses: Visualized sinuses are unremarkable. No fluid levels. Mastoid air cells: Normal as visualized. Bones: Unremarkable. No acute fracture. Soft tissues: Unremarkable. IMPRESSION: No acute intracranial abnormality.
[2025-04-02 15:30] VITALS: BP 129/91; PULSE 71; O2SAT 100
[2025-04-02 15:34] LABS: Coronavirus 19, PCR Not Detected (NotDetected); Influenza A, PCR Not Detected (NotDetected); Influenza B, PCR Not Detected (NotDetected)
[2025-04-02] MEDS: DEXAMETHASONE 4MG/ML 1ML VIAL 10 MG IV (15:34)
[2025-04-02] MEDS: PROCHLORPERAZINE 10MG/2ML VIAL 10 MG IV (15:34)
[2025-04-02 15:36] LABS: Hematocrit 41.2 % (37.0-47.0); Hemoglobin 13.9 g/dL (12.2-16.2); Immature Granulocytes % 0.1 %; Mean Corpuscular HGB Conc 33.7 g/dL (31.8-35.4); Mean Corpuscular Hemoglobin 30.2 pg (27.0-31.2); Mean Corpuscular Volume 89.6 fl (81-99); Nucleated Red Blood Cells % 0 %; Platelet Count 209 K/mm3 (142-424); Red Blood Count 4.60 M/mm3 (4.20-5.40); Red Cell Distribution Width-SD 42.5 fL; White Blood Count 8.5 K/mm3 (4.8-10.8)
[2025-04-02 15:38] LABS: Microscopic, Urine URINE MICROSCOPIC (MICROSCOPIC)
[2025-04-02 15:40] LABS: Albumin Level 3.9 g/dl (3.5-5.0); Chloride 103 mmol/L (98-107); Potassium 4.2 mmoL/L (3.5-5.1); Sodium 137 mmol/L (136-145)
[2025-04-02 15:43] LABS: Alanine Aminotransferase 18 U/L (12-78); Albumin/Globulin Ratio 1.4 (1.1-1.8); Alkaline Phosphatase 66 U/L (38-126); Anion Gap 12.2 mEq/L (5-15); Aspartate Amino Transferase 20 U/L (14-36); Bilirubin,Total 0.6 mg/dl (0.2-1.3); Blood Urea Nitrogen 8 mg/dl (7-17); Carbon Dioxide 26 mmol/L (22.0-30.0); Creatinine Clearance Estimated 133 mL/min (50-200); Creatinine,Serum 0.70 mg/dl (0.52-1.04); Estimated Glomerular Filt Rate 95 ml/min (>60); GFR (African American) 115 ML/MIN (>60); Globulin 2.7 g/dL (1.3-3.2); Glucose 100 mg/dl (74-100); Total Protein,Serum 6.6 g/dl (6.3-8.2)
[2025-04-02 15:44] LABS: Calcium 9.2 mg/dl (8.4-10.2); Magnesium 1.9 mg/dl (1.6-2.3)
[2025-04-02 15:53] LABS: Bilirubin,Urine Negative (Negative); Color,Urine YELLOW (Yellow); Glucose,Urine (UA) Negative (Negative); Ketones,Urine 2+ (Negative); Leukocyte Esterase,Urine Negative (Negative); PH,Urine 7.5 (5.0-8.5); Protein,Urine Negative (Negative); Specific Gravity, Urine 1.015 (1.005-1.030); Urobilinogen,Urine 1.0 EU/dl (0.2)
[2025-04-02 15:59] LABS: Urine Pregnancy, HCG Qual. Negative (Negative)
[2025-04-02 16:00] VITALS: BP 114/79; PULSE 63; O2SAT 96
[2025-04-02] MEDS: SODIUM CHLORIDE 0.9% 10ML SYR (RAD ONLY) 10 ML IV (16:12)
[2025-04-02] MEDS: IOPAMIDOL-370 (76%);100ML BOTTLE 80 ML IV (16:12)
[2025-04-02 16:20] LABS: Bacteria,Urine 3+ /lpf
[2025-04-02 16:30] VITALS: BP 105/68; PULSE 61; O2SAT 95
[2025-04-02 17:00] VITALS: BP 110/70; PULSE 61; O2SAT 97
[2025-04-02] MEDS: KETOROLAC 15MG/ML VIAL 15 MG IV (17:27)
[2025-04-02 17:30] VITALS: BP 110/70; PULSE 75; RESP 20; TEMP 36.8; O2SAT 96
== END 2025-04-02 17:31 | disposition home or self-care (01) ==
PROVIDERS: Physician Assistant; Emergency Provider Student in an Organized Health Care Education/Training Program; PCP Nurse Practitioner
DX: G44.209 Tension-type headache, unspecified, not intractable (principal)
CPT/HCPCS: 70450; 70496; 80053; 80320; 81001; 81025; 83735; 85025; 87086; 87631; 96374; 96375; 99284; J0780; J1100; J1200; J1885; Q9967